=== PATIENT | male | born 1945 | race Hispanic/Latino ===

== ENCOUNTER 2016-08-15 08:03 | Inpatient (IN) | payer MEDICARE, OTHER ==
[2016-08-15 08:04] VITALS: BMI 21.9
--- NOTE | 2016-08-15 08:21 | ED PDOC ---
Arrival/HPI - General Time Seen by Provider: 08/15/16 08:13 Historian: Patient - History of Present Illness Narrative History of Present Illness (Text): 08/15/16 08:19 Corona Sheffield is a 71 year old male, whose past medical history includes hypertension, diabetes, osteomyelitis, renal failure, left BKA, and depression, who presents to the emergency room complaining of pain to his right elbow and hand since last night. Patient states that the pain makes it difficult to move his fingers. Patient indicates that he wears golf gloves so that he is able to hold things. Patient says he lives alone but his daughter lives downstairs. Patient denies any other complaint at this time. PMD: Dr. Patiño Time/Duration: 24 hours Symptom Onset: Sudden Symptom Course: Worsening Severity Level: Moderate Activities at Onset: Rest Context: Home Associated Symptoms (Text): 08/15/16 08:49 Patient reports right hand and elbow pain since last night. He has golf gloves on both hands, which he reports makes it easier for him to hold things. After I removed the golf gloves it was apparent that the patient had a severe cellulitis on his right dorsal hand with proximal streaking Past Medical History - Provider Review Nursing Documentation Reviewed: Yes - Infectious Disease Hx of Infectious Diseases: None - Cardiac Hx Cardiac Disorders: Yes Hx Hypertension: Yes - Pulmonary Hx Respiratory Disorders: No - Neurological Hx Neurological Disorder: No Hx Transient Ischemic Attacks (TIA): No - HEENT Hx HEENT Disorder: No - Renal Hx Renal Failure: Yes - Endocrine/Metabolic Hx Diabetes Mellitus Type 2: Yes - Hematological/Oncological Hx Blood Disorders: No - Integumentary Hx Dermatological Disorder: Yes (POST I AND D AND DEBRIDEMENT OF LEFT FOOT.) Other/Comment: amputation left great/2nd toe - Musculoskeletal/Rheumatological Hx Falls: Yes - Gastrointestinal Hx Gastrointestinal Disorders: No - Genitourinary/Gynecological Hx Reproductive Disorders: No - Psychiatric Hx Psychophysiologic Disorder: Yes Hx Depression: Yes ( 2 YRS AGO 2013) Hx Substance Use: No - Surgical History Other/Comment: amputation left 1/2/ toes bka 03/17/2016 - Anesthesia Hx Anesthesia: Yes Hx Anesthesia Reactions: Yes Hx Malignant Hyperthermia: No Family/Social History - Physician Review Nursing Documentation Reviewed: Yes Family/Social History: No Known Family HX Smoking Status: Former Smoker Hx Alcohol Use: Yes Frequency of alcohol use: Socially Hx Substance Use: No Allergies/Home Meds Allergies/Adverse Reactions: Allergies No Known Allergies Allergy (Verified 06/17/16 20:55) Review of Systems - Physician Review All systems were reviewed & negative as marked: Yes - Review of Systems Constitutional: Fatigue. absent: Fevers, Night Sweats Eyes: absent: Vision Changes ENT: absent: Hearing Changes Respiratory: absent: SOB, Cough Cardiovascular: absent: Chest Pain Gastrointestinal: absent: Abdominal Pain, Vomiting Genitourinary Male: absent: Urinary Output Changes Musculoskeletal: Other (Pain to right elbow and fingers) Neurological: absent: Headache Endocrine: absent: Polydipsia Hemo/Lymphatic: absent: Easy Bleeding Psychiatric: absent: Depression Physical Exam Vital Signs Reviewed: Yes Vital Signs Temp Pulse Resp BP Pulse Ox 08/15/16 10:10 93 H 17 134/65 100 08/15/16 09:55 89 17 118/68 99 08/15/16 09:47 89 17 118/68 100 08/15/16 09:39 89 18 140/70 98 08/15/16 09:15 87 19 135/77 100 08/15/16 09:00 92 H 17 137/77 100 08/15/16 08:12 97.8 F 104 H 20 155/89 H 100 Temperature: Afebrile Blood Pressure: Hypertensive Pulse: Regular Respiratory Rate: Normal Appearance: Positive for: Well-Appearing, Non-Toxic, Comfortable, Other (Pale) Pain Distress: None Mental Status: Positive for: Alert and Oriented X 3 - Systems Exam Head: Present: Atraumatic, Normocephalic Pupils: Present: PERRL Extroacular Muscles: Present: EOMI Conjunctiva: Present: Normal Mouth: Present: Moist Mucous Membranes Pharnyx: No: ERYTHEMA, EXUDATE, TONSILS ENLARGED Neck: Present: Normal Range of Motion Respiratory/Chest: Present: Clear to Auscultation, Good Air Exchange, Decreased Breath Sounds. No: Respiratory Distress, Accessory Muscle Use Cardiovascular: Present: Regular Rate and Rhythm, Normal S1, S2. No: Murmurs Abdomen: Present: Normal Bowel Sounds. No: Tenderness, Distention, Peritoneal Signs, Rebound, Guarding Genitourinary Male: Present: Other (fungal scrotal skin infection) Back: Present: Normal Inspection Upper Extremity: Present: Other (severe cellulitis on right dorsal hand with streaking to proximal 3rd of forearm) Lower Extremity: Present: Other ( well healing AKA incision ) Neurological: Present: GCS=15, CN II-XII Intact, Speech Normal, Motor Func Grossly Intact Skin: Present: Warm, Dry, Normal Color. No: Rashes Psychiatric: Present: Alert, Oriented x 3, Normal Insight, Normal Concentration Medical Decision Making ED Course and Treatment: 08/15/16 08:20 Impression: 71 year old male complaining of pain to right elbow and hand since last night Plan: -- EKG -- Chest X-ray -- VBG, Blood Culture -- Urinalysis -- Labs -- Rocephin -- Reassess and disposition Prior Visits: Notes and results from previous visits were reviewed. Patient last seen in the ED on 06/14/16 for abdominal pain. Patient was admitted to hospital for further evaluation. Progress Notes: 08/15/16 08:51 EKG shows normal sinus rhythm rate approximately [address] or T-wave changes 08/15/16 10:26 Chest X-ray: Creator : DR. Mcfarlane, Azalia Hamilton MD FINDINGS: LUNGS:No focal consolidation. Please note that chest x-ray has limited sensitivity for the detection of pulmonary masses. PLEURA:No significant pleural effusion identified. No definite pneumothorax . CARDIOVASCULAR:The cardiomediastinal silhouette appears within normal limits of size. OSSEOUS STRUCTURES: Chronic appearing posterior left 6th rib fracture deformity. VISUALIZED UPPER ABDOMEN:Unremarkable. IMPRESSION: No focal consolidation, significant pleural effusion, or definite pneumothorax identified. - Lab Interpretations Lab Results: 08/15/16 09:09 08/15/16 09:09 Lab Results 08/15/16 09:27: Urine Color Yellow, Urine Appearance Clear, Urine pH 6.0, Ur Specific [place] >= 1.030, Urine Protein 100 H, Urine Glucose (UA) Negative, Urine Ketones Negative, Urine Blood Small H, Urine Nitrate Negative, Urine Bilirubin Negative, Urine Urobilinogen 0.2, Ur Leukocyte Esterase Negative, Urine RBC 0 - 2, Urine WBC 0 - 2, Ur Epithelial Cells 0 - 2, Urine Bacteria Rare 08/15/16 09:09: WBC 9.1 D, RBC 4.07, Hgb 12.0 L, Hct 34.7 L, MCV 85.3, MCH 29.5 , MCHC 34.6, RDW 14.3, Plt Count 217, MPV 10.9, Gran % 74.6 H, Lymph % (Auto) 10.9 L, [place] % (Auto) 14.2 H, Eos % (Auto) 0.2 L, Baso % (Auto) 0.1, Gran # 6.80 H, Lymph # 1.0 L, [place] # 1.3 H, Eos # 0.0, Baso # 0.01, PT 10.8, INR 1.00, APTT 31.4 H, pO2 30, VBG pH 7.36, VBG pCO2 38.0 L, VBG HCO3 21.5, VBG Total CO2 22.7, VBG O2 Sat (Calc) 58.5, VBG Base Excess -3.6 L, VBG Potassium 4.3, Glucose 188 H, Lactate 1.7, FiO2 21.0, Sodium 134.0, Potassium 4.5, Chloride 108.0 H, Carbon Dioxide 22, Anion Gap 14, BUN 33 H, Creatinine 2.1 H, Est GFR ( Amer) 38, Est GFR (Non-Af Amer) 31, Random Glucose 184 H, Calcium 9.0, Phosphorus 3.2, Magnesium 1.8, Total Bilirubin 1.6 H, AST 24, ALT 7, Alkaline Phosphatase 96, Total Protein 7.6, Albumin 3.6, Globulin 4.0, Albumin/Globulin Ratio 0.9 L, Venous Blood Potassium 4.3 I have reviewed the lab results: Yes - RAD Interpretation Radiology Orders: 08/15/16 08:26 CHEST PORTABLE [RAD] Stat Chest 1 view shows no infiltrate or effusion or cardiomegaly. Creative Services Writer: ED Physician - Medication Orders Current Medication Orders: Discontinued Medications Ceftriaxone Sodium (Rocephin 1 Gram Ivpb) 100 mls @ 200 mls/hr IVPB STAT STA PRN Reason: Protocol Stop: 08/15/16 08:54 Last Admin: 08/15/16 09:16 Dose: 200 MLS/HR eMAR Start Stop Document 08/15/16 09:16 SF (Rec: 08/15/16 09:17 SF [id number]) Intravenous Solution Start Date 08/15/16 Start Time 09:17 End Date 08/15/16 End time 09:47 Total Infusion Time 30 - Scribe Statement The provider has reviewed the documentation as recorded by the Sharon Benedict Provider Scribe Attestation: All medical record entries made by the Scribe were at my direction and personally dictated by me. I have reviewed the chart and agree that the record accurately reflects my personal performance of the history, physical exam, medical decision making, and the department course for this patient. I have also personally directed, reviewed, and agree with the discharge instructions and disposition. Disposition/Present on Arrival - Present on Arrival Any Indicators Present on Arrival: No History of DVT/PE: No History of Uncontrolled Diabetes: No Urinary Catheter: No History of Decub. Ulcer: No History Surgical Site Infection Following: None - Disposition Have Diagnosis and Disposition been Completed?: Yes Diagnosis: Cellulitis, Lymphangitis, Renal failure, Dehydration Disposition: HOSPITALIZED Disposition Time: 09:31 Patient Plan: Observation Patient Problems: Current Active Problems Problem Status Diagnosed Cellulitis Acute Dehydration Acute Gastritis Acute Intractable vomiting with nausea Acute Lymphangitis Acute Renal failure Acute Condition: GOOD
[2016-08-15] MEDS ORDERED: cefTRIAXone 1 gm 100 ML IVPB STA (08:25)
[2016-08-15 09:09] LABS: ADD MANUAL DIFF? NO
[2016-08-15 09:16] LABS: BASO # 0.01 K/mm3 (0.0-2.0); BASO % 0.1 % (0.0-3.0); EOS % 0.2 % (1.5-5.0); GRAN % 74.6 % (50.0-68.0); HEMATOCRIT 34.7 % (42.0-52.0); LYMPH % 10.9 % (22.0-35.0); MEAN CELL VOLUME 85.3 fL (80.0-105.0); MEAN CORPUSCULAR HEMOGLOBIN 29.5 pg (25.0-35.0); MEAN CORPUSCULAR HGB CONC 34.6 g/dl (31.0-37.0); MEAN PLATELET VOLUME 10.9 fl (7.0-11.0); MONO # 1.3 (0.1-0.6); MONO % 14.2 % (1.0-6.0); PLATELET COUNT 217 10^3/uL (120.0-450.0); RED CELL DISTRIBUTION WIDTH 14.3 % (11.5-14.5); VENOUS BLOOD GAS BASE EXCESS -3.6 mmol/L (0.0-2.0); VENOUS BLOOD PH 7.36 (7.32-7.43); WHITE BLOOD COUNT 9.1 10^3/ul (4.5-11.0)
[2016-08-15 09:27] LABS: ALB/GLOB RATIO 0.9 (1.1-1.8); BILIRUBIN,TOTAL 1.6 mg/dL (0.2-1.3); MAGNESIUM 1.8 mg/dL (1.7-2.2); PARTIAL THROMBOPLASTIN TIME 31.4 Seconds (23.7-30.8); PHOSPHOROUS 3.2 mg/dL (2.5-4.5); POTASSIUM 4.5 mmol/L (3.6-5.0); TOTAL PROTEIN 7.6 g/dL (5.8-8.3)
[2016-08-15 09:42] LABS: URINE BILIRUBIN NEGATIVE (NEGATIVE); URINE BLOOD SMALL (NEGATIVE); URINE GLUCOSE (UA) NEGATIVE (NEGATIVE); URINE KETONE NEGATIVE (NEGATIVE); URINE LEUKOCYTE ESTERASE NEGATIVE Leu/uL (NEGATIVE); URINE PROTEIN 100 mg/dL (<30 mg/dL); URINE UROBILINOGEN 0.2 E.U./dL (<1 E.U./dL)
[2016-08-15 09:47] LABS: URINE COLOR YELLOW (YELLOW)
[2016-08-15 09:48] LABS: URINE APPEARANCE CLEAR (CLEAR)
[2016-08-15 09:58] LABS: URINE BACTERIA RARE (NEG); URINE EPITHELIAL CELLS 0 - 2 /hpf (0-5); URINE RBC 0 - 2 /hpf (0-2); URINE WBC 0 - 2 /hpf (0-6)
--- NOTE | 2016-08-15 10:23 | RAD ---
HISTORY: Sepsis Patient COMPARISON: Chest x-ray performed 06/14/16 TECHNIQUE: Chest, one view. FINDINGS: LUNGS: No focal consolidation. Please note that chest x-ray has limited sensitivity for the detection of pulmonary masses. PLEURA: No significant pleural effusion identified. No definite pneumothorax . CARDIOVASCULAR: The cardiomediastinal silhouette appears within normal limits of size. OSSEOUS STRUCTURES: Chronic appearing posterior left 6th rib fracture deformity. VISUALIZED UPPER ABDOMEN: Unremarkable. OTHER FINDINGS: None. IMPRESSION: No focal consolidation, significant pleural effusion, or definite pneumothorax identified.
--- NOTE | 2016-08-15 12:16 | HP ---
HISTORY OF PRESENT ILLNESS: The patient is a 71-year-old male, recently discharged secondary to infe ctions of the foot, for which he had a BKA done. He comes in today with a 1-day history of severe sw elling of the right hand, with erythema. States that he denies any trauma. He denies any cats at [facility], as well as dogs. He said the swelling got to the point where he is unable to move his hand prope rly, and came in for further evaluation. PAST MEDICAL HISTORY: Hypertension, diabetes mellitus, osteomyelitis, status post left BKA. ALLERGIES: No known allergies. PAST SURGICAL HISTORY: Left BKA. MEDICATIONS: See MAR. FAMILY MEDICAL HISTORY: Positive for hypertension and diabetes. REVIEW OF SYSTEMS: HEENT: Unremarkable. CARDIOVASCULAR: Unremarkable. LUNGS: Unremarkable. ABDOMEN: Unremarkable. EXTREMITIES: Positive for new swelling and redness of the hand, as per HPI, as well as some redness to the . PHYSICAL EXAMINATION: VITAL SIGNS: Blood pressure is 134/65, pulse rate of 93, temperature is 98.7, O2 saturation is 100% on room air. HEENT: Normocephalic, atraumatic. Rippey conjunctivae, nonicteric sclerae. NECK: No JVD, no thyromegaly. CARDIOVASCULAR: Regular rate and rhythm. S1, S2 appreciated. No S3 noted. LUNGS: Bilateral air entry is positive. No wheezes or rhonchi. ABDOMEN: Nondistended, nontender. Positive bowel sounds. EXTREMITIES: Positive for left BKA. There is right toe erythema that is noted, as well as right contreras d erythema and decreased range of motion. LABORATORY DATA: WBCs of 9.1, hemoglobin of 12.0, hematocrit of 34.7, platelets of 217. Chemistry w ithin normal limits, except for creatinine of 2.1, which is around his baseline. LFTs also within no rmal limits. Chest x-ray was noted. ASSESSMENT: 1. Right hand cellulitis. 2. Hypertension. 3. Diabetes mellitus. 4. Status post vapwy-sgu-ypru amputation secondary to osteomyelitis. PLAN: At this time, we will get a consult with Dr. Lopez, from ID, and Dr. Henriquez, from Ortho . We reconciled his medications. The patient did receive a dose of Rocephin, but we will start him on Teflaro IV and will follow very closely. Morales Mckeon MD cc: [id number] TT: 08/15/2016 12:16:08 ln
--- NOTE | 2016-08-15 12:50 | CON ---
DATE: 08/15/2016 The patient is in the Emergency Room. CHIEF COMPLAINT: Right hand infection x 1 day duration. HISTORY OF PRESENT ILLNESS: A 71-year-old male known to me from previous admissions, had multiple ad missions with history of diabetes mellitus, hypertension, alcohol abuse, peripheral vascular disease, depression, coronary artery disease, osteomyelitis, history of Klebsiella bacteremia, history of MRS A bacteremia, history of renal disease, high cholesterol, who also had a left lkpya-luk-fdzz amputati on. He was admitted with right hand infection x 1 day duration. He denies any nausea, vomiting. No fevers, no chills, no chest pain, abdominal pain, diarrhea or constipation. No bright red blood per rectum. PAST MEDICAL HISTORY: Significant for Klebsiella bacteremia, MRSA bacteremia, renal disease, high ch olesterol, diabetes mellitus, hypertension, ETOH, peripheral vascular disease, depression, coronary a rtery disease and osteomyelitis. PAST SURGICAL HISTORY: Significant for left below-knee amputation. ALLERGIES: The patient has no known allergies. MEDICATIONS AT HOME: Reviewed and include tramadol, clonidine and Protonix, insulin, Lexapro, Lipito r. PHYSICAL EXAMINATION: GENERAL: The patient is in bed, no acute distress. VITAL SIGNS: Temperature of 98, blood pressure is 150/90, heart rate of 94, respiratory rate of 18. HEENT: Unremarkable. NECK: Supple. LUNGS: Have decreased breath sounds. HEART: Normal S1, S2. ABDOMEN: Soft, nontender. EXTREMITIES: Examination of right hand is significant erythema and edema. No break in the skin, no discharge. Radial pulses are intact. On the dorsum aspect of the hand, erythema is present. LABORATORY EXAMINATION: Reveals a white count of 9, hemoglobin of 12, platelets 217 and BUN of 33, c reatinine of 2.1, glucose is 184. Urinalysis is noted. The patient had a chest x-ray. It was read by Dr. Azalia Mcfarlane. There is no focal consolidation. Emergency Room Dr. Evan Davis's E mergency Room note is reviewed. No other information is available. ASSESSMENT AND PLAN: A 71-year-old male with diabetes mellitus, hypertension, alcohol abuse, periphe ral vascular disease, depression, coronary artery disease and osteomyelitis, Klebsiella bacteremia, m ethicillin-resistant Staphylococcus aureus bacteremia, renal disease, high cholesterol, left below-kn ee amputation. 1. Right hand cellulitis. We will treat the patient with Teflaro pending graves cultures and clinical response and we will follow closely with you. Magdaleno Lopez MD cc: [id number] TT: 08/15/2016 12:49:45 Confirmation # [id number] Dictation # [id number] tn
[2016-08-15] MEDS: Insulin Lispro (humaLOG) LOW Coverage SC SCH ×2 (16:19→21:16)
[2016-08-15] MEDS ORDERED: Pneumococcal 23-Valent Vaccine IM ONE (17:55)
[2016-08-15] MEDS ORDERED: Influenza Vaccine 45 MCG/0.5 ml IM ONE (17:55)
[2016-08-16] MEDS: Insulin Lispro (humaLOG) LOW Coverage SC SCH (08:59)
--- NOTE | 2016-08-16 09:34 | CARD ---
APPROVED REPORT EKG Measurement Heart [id number] <Conclusion> Normal sinus rhythm Mild NSSTW changes. Prolonged QTc.
--- NOTE | 2016-08-16 13:13 | PN ---
DATE: 08/16/2016 The patient is a 71-year-old male, seen and examined at bedside. Daughter was also at the bedside. Currently, he is tolerating the IV antibiotics that the patient is receiving. He has been refusing h is Accu-Cheks as well as insulin, denies that he has diabetes. He also has been refusing his psychia tric medications. However, currently he is not having chest pain, no shortness of breath. PHYSICAL EXAMINATION: VITAL SIGNS: Blood pressure currently is 138/82, pulse rate of 69, temperature is 97.3, O2 saturatio n is 100% on room air. HEENT: Normocephalic, atraumatic. [place] conjunctivae, nonicteric sclerae. NECK: No JVD, no thyromegaly. CARDIOVASCULAR: Regular rate and rhythm. S1, S2 appreciated. No S3 noted. LUNGS: Bilateral air entry is positive. No wheezes or rhonchi. ABDOMEN: Nondistended, nontender. Positive bowel sounds. EXTREMITIES: Positive for BKA. There is also noted right toe erythema as well as right hand erythem a, which is decreasing in size. There is still decreased range of motion. LABORATORIES: The patient refuses labs this morning, but we will reorder labs again today. ASSESSMENT: 1. Right hand cellulitis. 2. Right foot cellulitis. 3. Hypertension. 4. Diabetes mellitus. 5. Axthy-bjs-iqas amputation, secondary to osteomyelitis. Did note Dr. Lopez's evaluation and change in IV antibiotics. I also put in Dr. Whitley for a p odiatry consult as well as Dr. Henriquez to review and evaluate hand. Morales Mckeon MD cc: [id number] TT: 08/16/2016 13:12:31 Confirmation # [id number] Dictation # [id number] en
--- NOTE | 2016-08-16 13:26 | PN ---
DATE: 08/16/2016 The patient was seen earlier today. No fevers, no chills, no nausea, no vomiting, doing better. He states his hand is improved. PHYSICAL EXAMINATION: VITAL SIGNS: Temperature is 97, blood pressure is 130/80, respiratory rate of 18. HEENT: Unremarkable. NECK: Supple. LUNGS: Have decreased breath sounds. HEART: Normal S1, S2. ABDOMEN: Soft, nontender. LABORATORY DATA: Reveals the patient's white count is 9, hemoglobin of 12, platelets of 217. Chemis tries reveal the BUN of 33, creatinine of 2.1. Urinalysis is noted. Microbiology reveals the blood cultures are negative. Examination of his hand, it is still erythematous, but it is improved. ASSESSMENT AND PLAN: This is a 71-year-old male with diabetes mellitus, hypertension, alcohol abuse, peripheral vascular disease, depression, coronary artery disease, osteomyelitis, Klebsiella bacterem ia, methicillin-resistant Staphylococcus aureus bacteremia, renal disease, high cholesterol, left bel ow-knee amputation, now presenting with right hand cellulitis. On exam, patient also has a right seco nd toe ulcer and erythema. Podiatry is to be called today. The patient is already on Teflaro. Work up of lower extremity as per podiatry. Magdaleno Lopez MD cc: [phone] TT: 08/16/2016 13:25:43 Confirmation # [id number] Dictation # [id number] niecy
[2016-08-16 15:44] LABS: ADD MANUAL DIFF? NO
[2016-08-16 15:45] LABS: BASO # 0.02 K/mm3 (0.0-2.0); BASO % 0.2 % (0.0-3.0); EOS # 0.1 (0.0-0.7); EOS % 1.2 % (1.5-5.0); GRAN # 7.79 (1.4-6.5); GRAN % 81.7 % (50.0-68.0); HEMATOCRIT 32.6 % (42.0-52.0); LYMPH # 0.4 (1.2-3.4); LYMPH % 4.2 % (22.0-35.0); MEAN CORPUSCULAR HEMOGLOBIN 29.1 pg (25.0-35.0); MEAN CORPUSCULAR HGB CONC 34.7 g/dl (31.0-37.0); MEAN PLATELET VOLUME 10.6 fl (7.0-11.0); MONO # 1.2 (0.1-0.6); MONO % 12.7 % (1.0-6.0); PLATELET COUNT 214 10^3/uL (120.0-450.0); RED CELL DISTRIBUTION WIDTH 14.4 % (11.5-14.5); WHITE BLOOD COUNT 9.5 10^3/ul (4.5-11.0)
[2016-08-16 16:05] LABS: ALB/GLOB RATIO 0.8 (1.1-1.8); BILIRUBIN,TOTAL 0.5 mg/dL (0.2-1.3); CALCIUM 8.2 mg/dL (8.4-10.5); POTASSIUM 3.9 mmol/L (3.6-5.0); TOTAL PROTEIN 6.7 g/dL (5.8-8.3)
[2016-08-16] MEDS ORDERED: Vancomycin 1gm in NS 250ml 250 ML IVPB ONE (18:00)
[2016-08-17] MEDS ORDERED: Morphine 2 mg/ml ISec IVP PRN (07:58)
[2016-08-17] MEDS ORDERED: Sodium Chloride 0.45% 1,000 ML IV SCH (08:00)
--- NOTE | 2016-08-17 09:40 | PN ---
DATE: 08/17/2016 I saw the patient resting in bed this morning. His right hand is still red and inflamed, so is the r ight foot. Waiting for podiatry to come in and see him. He is being seen by infectious disease. He is alert. He has a little bit of discomfort in the right hand more than the foot at this time, but it is still red and inflamed. PHYSICAL EXAMINATION: VITAL SIGNS: He has a 97.3 temp, 71 pulse, 163/90 blood pressure. He refuses his medications. An 1 8 respiratory rate, 98% O2 sat on room air. MEDICATIONS: He is currently on Abilify, Catapres, ceftaroline IV, Ecotrin, Lexapro, Lipitor, Motrin , and Ultram for pain. LABORATORY DATA: He has a 9.5 white count, 11.3 hemoglobin, 32.6 hematocrit with 214 platelets. He has a 131 sodium, potassium 3.9, BUN is 47, creatinine 3.3 (I will get renal involved because his ki dney functions are getting a little bit worse). Last sugar was 227 (I am going to tighten up his blaire betes). Calcium is 8.2. Total bili is 0.5, AST is 16, ALT is 9, alkaline phosphatase is 87, total p rotein 6.7. His urine was rare. He is here for cellulitis of the right hand and right foot, now his kidney function is getting involv ed and so are his blood sugars. I will see what I can do for insulin coverage and care. He needs IV antibiotics as per infectious disease. He has a left below-knee amputation history. See what podia try has to offer. Continue IV antibiotics. Kavon Patiño DO cc: [id number] TT: 08/17/2016 09:39:26 Confirmation # [id number] Dictation # [id number] mn
--- NOTE | 2016-08-17 11:29 | CON ---
DATE: 08/17/2016 REASON FOR CONSULTATION: Right hand pain. This is a 71-year-old gentleman who was admitted 2 days ago with complaints of right hand pain and sw elling. The patient was subsequently admitted for cellulitis and was started on IV antibiotics. The patient says since then, the redness has improved significantly. He still has pain, particularly on range of motion of his second and third fingers. He denies any history of trauma. He denies histor y of any fevers at home. PHYSICAL EXAMINATION: GENERAL: This is an elderly gentleman, in no apparent distress. He is awake, alert, and oriented. EXTREMITIES: Evaluation of his right hand shows that he has some swelling and erythema over the dors um of his hand, appears to be mostly concentrated over the second and third metacarpals. He has pain with passive or active range of motion at the MCP joints of the second and third fingers. He has go od cap refill in all his fingers. He is nontender over the first, the fourth and fifth fingers and i s able to flex them without significant pain. There is no obvious swelling or deformity about the ri ght wrist. He is tolerating active range of motion of the wrist without significant pain. Grossly, he is neurologically intact. There are no x-rays available for my review. IMPRESSION: Right hand cellulitis. PLAN: We are going to go ahead and order x-rays of the right hand for better evaluation. For now, christian lozano is going to continue the IV antibiotics. We will follow up once the x-rays are complete. Frankie Henriquez MD cc: [id number] TT: 08/17/2016 11:29:41 Confirmation # [id number] Dictation # [id number] en
--- NOTE | 2016-08-17 13:17 | CP.PCM.PN ---
Subjective - Date & Time of Evaluation Date of Evaluation: 08/17/16 Time of Evaluation: 11:05 - Subjective Subjective: Patient just came from x-ray, overnight was uneventful. No fevers, no diarrhea, still with hand swelling but a little less. Objective - Vital Signs/Intake and Output Vital Signs (last 24 hours): Temp Pulse Resp BP Pulse Ox 97.3 F L 70 18 163/90 H 98 08/17/16 07:23 08/17/16 10:03 08/17/16 07:23 08/17/16 10:03 08/17/16 07:23 Intake and Output: 08/17/16 08/17/16 06:59 18:59 Intake Total 340 Output Total 450 Balance -110 - Medications Medications: Current Medications Aripiprazole (Abilify) 5 mg PO HS [facility] Last Admin: 08/16/16 21:33 Dose: Not Given Aspirin (Ecotrin) 81 mg PO 0800 [facility] Last Admin: 08/17/16 10:04 Dose: Not Given Atorvastatin Calcium (Lipitor) 40 mg PO DIN [facility] Last Admin: 08/16/16 17:53 Dose: Not Given Clonidine HCl (Catapres) 0.1 mg PO BID [facility] Last Admin: 08/17/16 10:03 Dose: Not Given Escitalopram Oxalate (Lexapro) 5 mg PO QAM [facility] Last Admin: 08/17/16 10:05 Dose: Not Given Heparin Sodium (Porcine) (Heparin) 5,000 units SC Q12 [facility] PRN Reason: Protocol Last Admin: 08/17/16 10:04 Dose: Not Given Ceftaroline Fosamil 400 mg/ (Sodium Chloride) 100 mls @ 100 mls/hr IVPB Q12 [facility] PRN Reason: Protocol Stop: 08/24/16 12:18 Last Admin: 08/17/16 09:52 Dose: 100 mls/hr Sodium Chloride (Sodium Chloride 0.45%) 1,000 mls @ 30 mls/hr IV .Q24H [facility] Last Admin: 08/17/16 10:02 Dose: 30 mls/hr Insulin Detemir (Levemir) 12 unit SC HS [facility] Morphine Sulfate (Morphine) 2 mg IVP Q4H PRN PRN Reason: Pain, moderate (4-7) Pantoprazole Sodium (Protonix Ec Tab) 40 mg PO ACB [facility] - Labs Labs: 08/16/16 15:30 08/16/16 15:30 PT 10.8 Seconds (9.9-11.8) 08/15/16 09:09 INR 1.00 (0.93-1.08) 08/15/16 09:09 APTT 31.4 Seconds (23.7-30.8) H 08/15/16 09:09 - Constitutional Appears: Non-toxic, No Acute Distress - Head Exam Head Exam: NORMAL INSPECTION - ENT Exam ENT Exam: Mucous Membranes Moist - Neck Exam Neck Exam: absent: Lymphadenopathy, Meningismus - Respiratory Exam Respiratory Exam: Decreased Breath Sounds - Cardiovascular Exam Cardiovascular Exam: +S1, +S2 - GI/Abdominal Exam GI & Abdominal Exam: Soft. absent: Tenderness - Extremities Exam Additional comments: right hand with swelling and erythema Assessment and Plan - Assessment and Plan (Free Text) Plan: Assessment right hand cellulitis with associated Staph aureus bacteremia, slowly improving history of left sided healthcare-associated pneumonia history of left stump infection with clinical osteomyelitis S/P left BKA with associated MRSA bacteremia history of left foot infection S/P transmetatarsal amputation (12/25/2015) with viable margins in a patient with a history of left foot gangrene and abscess S/ P incision and drainage of an abscess and first ray resection with osteomyelitis with Klebsiella; this is also associated with Klebsiella bacteremia diabetes mellitus alcohol abuse chronic renal failure Plan Continue Teflaro (day 2) and given one dose of IV Vancomycin; blood cultures were repeated yesterday, will follow up sensitivities of the Staph aureus in the blood; ordered 2D echo and will follow up results; will also follow up results of the hand xray done today Reviewed Orthopedic consult Will monitor clinically
--- NOTE | 2016-08-17 15:31 | RAD ---
PROCEDURE: Right Hand Radiographs. HISTORY: pain and swelling COMPARISON: None. FINDINGS: BONES: Normal. No fracture. JOINTS: Normal. No osteoarthritic changes. SOFT TISSUES: Normal. OTHER FINDINGS: None. IMPRESSION: Normal right hand radiographs.
--- NOTE | 2016-08-17 18:01 | CON ---
DATE: 08/17/2016 This is a 71-year-old male seen for new consultation for an infected third toe on his left foot. Alda hernandez is a patient known to me in the past. He has had a left BKA. He is home. He states that he walks with a prosthetic and he is caring for himself at home. He states that the toe is not what brought him to the hospital, but his hand which is swelling and he cannot move his hand. PAST MEDICAL HISTORY: Positive for the osteomyelitis to the left foot with a BK. He has a history o f hypertension and diabetes. MEDICATIONS: Noted on the JUL. ALLERGIES: He has no known drug allergies. PAST SURGICAL HISTORY: Positive for the left BKA and for surgical removal of the first and second to es on the right foot. OBJECTIVE: VITAL SIGNS: Reviewed. His temperature is 97.8, his blood pressure is 170/94. His respirations are 18 and the oxygen is 99. LABORATORY DATA: Show a white blood cell count of 9.5. The H and H is 11.3/32.6, and the platelets are 214. Granulocytes are 81.7 and lymphocytes of 4.2 with a shift to the left. Chemistry shows a B UN and creatinine of 47 and 3.3, and his glucose was 227. The patient is denying being a diabetic an d the nurse states he has been refusing to have fingersticks done. Microbiology shows that he has a blood infection with Staph aureus. PHYSICAL EXAMINATION: He has lower extremity on the right shows nonpalpable pedal pulses. He has ri gid hammertoe deformity. The third toe is cellulitic. There is an ulceration at the PIPJ with pus c oming from it. There is slough and necrosis over that wound, and the joint is easily palpable throug h the softened slough tissue. ASSESSMENT: A diabetic with peripheral vascular disease and osteomyelitis to the third toe on his le ft foot. PLAN OF TREATMENT: A wound culture was taken. X-rays were ordered. Arterial Dopplers were ordered. Wound care was ordered hemoglobin A1c was also ordered as well as an ESR and a CRP. Nursing wound care dressings were applied. At the time, we are just going to clean it with some saline and a dry s terile dressing. Plan of treatment also will include patient will need amputation of that toe. At t his time, will await the test and he will be seen and followed. Larissa Whitley DPM cc: [id number] TT: 08/17/2016 18:00:43 Confirmation # [id number] Dictation # [id number] mn
[2016-08-17] MEDS: Insulin Detemir 100 units/ml Vial (Levemir) SC SCH (23:27)
[2016-08-18] MEDS: Pantoprazole 40 mg EC Tab PO SCH (08:03)
[2016-08-18 09:45] LABS: ALB/GLOB RATIO 0.9 (1.1-1.8); ALKALINE PHOSPHATASE 98 U/L (38-133); ALT/SGPT 12 U/L (7-56); AST/SGOT 23 U/L (15-59); BILIRUBIN,TOTAL 0.5 mg/dL (0.2-1.3); BLOOD UREA NITROGEN 45 mg/dL (7-21); CALCIUM 8.7 mg/dL (8.4-10.5); CARBON DIOXIDE 15 mmol/L (21-33); CHLORIDE 108 mmol/L (95-110); GFR AFRICAN-AMERICAN 20; GLUCOSE,RANDOM 220 mg/dL (70-110); POTASSIUM 4.1 mmol/L (3.6-5.0); SODIUM 140 mmol/L (132-148); TOTAL PROTEIN 6.9 g/dL (5.8-8.3); URIC ACID 7.9 mg/dL (3.5-8.5)
[2016-08-18] MEDS ORDERED: Sodium Chloride 0.45% 1,000 ML IV SCH (10:18)
--- NOTE | 2016-08-18 11:14 | PN ---
DATE: 08/18/2016 I saw the patient resting in bed. He is fairly comfortable, a little bit upset about being in the hospital, is on his IV fluids. He is still refusing medications. He is on IV antibiotics. He is being seen by podiatry, orthopedics and infectious disease. The x-rays of the hand were okay. MEDICATIONS: He is currently on Abilify, Catapres, ceftaroline, Ecotrin, heparin, Levemir, Lexapro, Lipitor, morphine, Protonix and IV fluids. PHYSICAL EXAMINATION: VITAL SIGNS: 97.8 temp, 69 pulse, 170/94 blood pressure, refusing his bp meds, 18 respiratory rate, . HEENT: Atraumatic, normocephalic. His throat is moist. NECK: Supple. HEART: Regular rate. LUNGS: Decreased breath sounds, but clear. ABDOMEN: Soft, nontender, positive bowel sounds. EXTREMITIES: He has a left BKA. Right foot is red and right hand red, but getting better. His cellulitis on the right side is improving. LABORATORY DATA: He has a 9.5 white count. He has 11.3 hemoglobin, 32.6 hematocrit with 214 platelets; 131 sodium, potassium 3.9, BUN is 47, creatinine 3.3, going up, I will call in renal. Sugar is 117, calcium is 8.2, total bili is 0.58, AST is 16, ALT is 9, alk phos is 87. He has consults with infectious disease, ortho, podiatry and a renal consult was called yesterday. He will continue with the IV fluids. See what the labs say today, they are pending. I am also going to call in social work to see if we can get him to TCU to finish up the antibiotics if it is okay with infectious disease. Will try and get him out of bed to chair and encourage him to please take his medications. He is here for cellulitis of the right hand, right foot, renal insufficiency and diabetes. Kavon Patiño DO cc: [id number] TT: 08/18/2016 10:50:42 Confirmation # [id number] Dictation # [id number] joel 08/18/2016 10:12:59 MTDD
--- NOTE | 2016-08-18 13:17 | US ---
PROCEDURE: Urinary bladder HISTORY: ARF COMPARISON: None TECHNIQUE: Standard protocol for this study/examination. FINDINGS: Urinary bladder assessment: Prevoid volume: 204.2 ml Postvoid residual: 16.9 ml Intrinsic, mural, perivesical abnormalities: Bladder calculus 1 x 0.3 cm. Ureteral jets: Documented bilaterally. Transabdominal prostate volume 12.7 mL. IMPRESSION: Solitary bladder calculus. Otherwise no acute/ significant findings.
--- NOTE | 2016-08-18 13:44 | CON ---
DATE: 08/17/2016 CONSULTATION REQUESTED BY: Julio C Acosta MD. REASON FOR CONSULTATION: Acute renal failure, hyponatremia, metabolic acidosis, stage III chronic ki dney disease. HISTORY OF PRESENT ILLNESS: The patient is a 71-year-old gentleman. He presented to [facility]'s Emergency Department on 08/15 with a complaint of pain in his right elbow and hand, arising from the night before that made it difficult to move his fingers. On arrival to the Emergency Department, he was noted to have a blood pressure of 155/89 with a heart rate of 104, breathing at 16 breaths per minute with an oxygen saturation 100%. Oral temperature is 97.8 degrees. Physical exam did reveal that his right hand was, in fact, quite erythematous. LABORATORY STUDIES: Had a normal white blood cell count, but his hemoglobin was 12, which is rather high for this patient with chronic anemia and a baseline hemoglobin of approximately 10. White blood cell count was normal, but he did have 75% neutrophils. BUN/creatinine was originally 33/2.1, which is more or less his baseline and corresponds to stage IIIB chronic kidney disease. Sodium was withi n normal limits as was bicarbonate. Chest x-ray did not reveal any acute pathology, and x-rays of the patient's hand were unremarkable as well. He was seen by infectious disease and was diagnosed with right hand cellulitis for which he was start ed on Teflaro and admitted for further evaluation and management. Of note, the day after admission, his BUN/creatinine had increased to 47/3.3, and his sodium was 131. In reviewing the medications the patient had been on home, he was not on any diuretics nor on any ZENON inhibitors or angiotensin receptor blockers, and he was not on any NSAIDs. He does state that he dodd s had almost no oral intake for approximately 3 days or so prior to admission, and even now, he has v dmitry poor oral intake. His minimum blood pressure on admission is 118/68, which is low for this patie nt with chronic ____. On admission, he was started on ibuprofen 800 mg orally 3 times a day. However, this was discontinue d yesterday. At present, he is on intravenous fluids with one-half normal saline. REVIEW OF SYSTEMS: Taken across all 10 systems in 14 points and was negative unless stated otherwise above. 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 He also has a known history of chronic consti pation. MEDICATIONS: Medications that the patient had been receiving at home prior to admission included tra madol 50 mg orally 3 times a day as needed, clonidine 0.1 mg orally twice daily, pantoprazole 40 mg o rally daily, Levemir 12 units subcutaneously at bedtime, Feosol 324 mg orally twice daily, Lexapro 5 mg orally daily, atorvastatin 40 mg orally daily, aspirin 81 mg orally daily, Abilify 5 mg orally nig htly. ALLERGIES: The patient had no known drug allergies. SOCIAL HISTORY: Notable for the patient having been a smoker in the past, although he no longer smok es. He used to drink alcohol, but no longer does so. There is no illicit drug use. He is currently retired. FAMILY HISTORY: Negative for any inheritable renal diseases, and was otherwise noncontributory. PHYSICAL EXAMINATION: GENERAL APPEARANCE: I saw the patient lying in bed. He was mildly uncomfortable, especially his rig ht hand. VITAL SIGNS: Blood pressure is 170/94, heart rate 70, oral temperature 97.8. Respiratory rate is 18 . Oxygen saturation was 98%. The remainder of the exam is as follows: HEENT: The patient appeared to have poor hygiene and appeared to be older than stated age. He had p lethoric complexion, was normocephalic and atraumatic. There was no sinus tenderness. NECK: Supple with a full range of motion. Trachea midline and freely movable. There was no jugular venous distention that I could appreciate. LUNGS: Lung rodriguez on my exam were grossly clear to auscultation. There were no rales, rhonchi, or wheezing. Diaphragmatic excursion as well as air flow into both lungs rodriguez was bilaterally symmetr ical. CARDIAC: Had a regular rate and rhythm without any rubs or gallops. ABDOMEN: Soft, nontender, without any rebounding, guarding, or rigidity. EXTREMITIES: Had left qpveu-kmz-laxt amputation. The dorsum of his right hand was quite erythematou s, tender, and warm to the touch. NEUROLOGIC: He was nonfocal. SKIN: As stated above. LABORATORY DATA: White count was 9.5 with an H and H of 11.3/32.6, had platelet count of 214,000. T here are 82% neutrophils, 4% lymphocytes, 13% monocytes, 1% eosinophil. Sodium is 131, potassium 3.9 . Chloride is 103, bicarbonate 17. BUN/creatinine is 47/3.3 with a glucose of 227. Calcium is 8.2, but corrects to 9.0 since the albumin is 3.0. Lactic acid level was normal at 1.7 on admission. Ur inalysis was yellow, clear with a pH of 6.0, specific gravity of greater than 1.030, protein of 100, small blood. Blood cultures have grown out Staph aureus since admission. Imaging is as stated above. IMPRESSION AND PLAN: The patient is a 71-year-old gentleman with type 2 diabetes mellitus that is in sulin-dependent, hypertension, dyslipidemia, peripheral arterial disease with left tlbsf-dhg-vzwg amp utation following osteomyelitis of his left foot, stage IIIB chronic kidney disease with a baseline c reatinine of approximately 2, admitted with pain in his right hand and elbow, and diagnosed with cell ulitis. Since admission, he has developed acute kidney injury superimposed on his stage IIIB chronic kidney disease. His hyponatremia and metabolic acidosis are both consequences of his acute kidney i njury. His blood pressure has been relatively low versus his baseline. Of note, the patient states that at home he had minimal oral intake, and this is manifested in the fact that his specific gravity is greater than 1.030. In this setting with concurrent admission of a nonsteroidal antiinflammatory drug (he had been on ibuprofen), his ability to intrarenally vasodilate in the setting of hypovolemi a was abrogated, and the patient thus developed acute kidney injury. Certainly, I agree with discontinuing his ibuprofen. I also agree with gentle hydration for this pat ient, and he is currently on 1/2 normal saline. We will recheck his laboratory study exam tomorrow t o see if his renal function has improved. If his renal function does not improve, then we will check a bladder ultrasound to rule out some degree of retention in this patient. As his renal function im proves, I expect his metabolic acidosis to improve as well, but given his advanced chronic kidney dis ease, he will likely ultimately require sodium bicarbonate supplementation to ensure that it stays at greater than 22, which would be our goal. Of note, although the patient's estimated global filtration rate is in the low 30s, given the fact th at he has diminished muscle mass as a result of sarcopenia, malnutrition, and his left below-knee amp utation, his renal function is worse, and the estimated global filtration rate would suggest in patie nts with chronic kidney disease or at a high risk of developing acute kidney injury, and any recovery from acute kidney injury, if any occurs at all, may be prolonged. For now, the patient does remain on Teflaro as well. I agree with heparin 5000 units subcutaneously twice daily for deep venous thrombosis prophylaxis. With acute kidney injury, the vancomycin we can dose based on drug level while he has acute kidney injury, and we will repeat his labs again tomorrow . I will be following this complex patient closely for the above complex medical problems. I thank you very much for the courtesy of this consultation. Suraj Martin MD cc: [id number] TT: 08/18/2016 09:35:11 Confirmation # [id number] Dictation # [id number] laura
--- NOTE | 2016-08-18 14:48 | PN ---
DATE: 08/18/2016 SUBJECTIVE: A 71-year-old male seen at bedside for continued evaluation and management of clinical o steomyelitis of the right third digit. The patient is scheduled for surgical intervention tomorrow a nd he will be kept n.p.o. after midnight tonight. VITAL SIGNS: Reveal a temperature of 97.8, pulse rate of 69, blood pressure 170/94, respiratory rate of 18. LABORATORY DATA: Reveal a white count of 9.5, hemoglobin of 11.3, hematocrit of 32.6, platelet count of 214. Microbiology report reveals gram-positive cocci growth on the right foot. OBJECTIVE: There is noted to be left below-knee amputation. Right foot presents with a full thickne ss ulceration at the dorsal aspect of the third digit that shows visible proximal phalangeal bone, wh ich is easily palpated. There is also noted to be a plantar ulceration submetatarsal 2. There are n o signs of ascending cellulitis. ASSESSMENT: Osteomyelitis of the right third digit. PLAN: The patient's wound was cleansed with normal sterile saline and we will apply dry sterile dres sing. We will keep patient n.p.o. as he is scheduled for digital amputation on his right foot tomorr ow. The patient will be seen and followed daily. Wu Hernandez DPM cc: [id number] TT: 08/18/2016 14:47:40 Confirmation # [id number] Dictation # [id number] niecy
--- NOTE | 2016-08-18 14:53 | RAD ---
PROCEDURE: Right Foot Radiographs. HISTORY: ulcer 3rd toe right COMPARISON: 02/15/2013. FINDINGS: BONES: No evidence of acute osteomyelitis. Hammertoe deformities noted. Stable findings status post resection of the 1st digit. JOINTS: Normal. SOFT TISSUES: Normal. OTHER FINDINGS: None. IMPRESSION: No acute findings related to/accounting for the clinical presentation.
--- NOTE | 2016-08-18 15:52 | CARD ---
APPROVED REPORT EXAM: Two-dimensional and M-mode echocardiogram with Doppler and color Doppler. INDICATION Infection:Rule out subacute bacterial endocarditis 2D DIMENSIONS Left Atrium (2D)4.2 (1.6-4.0cm)IVSd1.0 (0.7-1.1cm) LVDd4.4 (3.9-5.9cm)PWd1.2 (0.7-1.1cm) LVDs3.5 (2.5-4.0cm)FS (%) 20.7 % LVEF (%)42.4 (>50%) M-Mode DIMENSIONS Aortic Root3.20 (2.2-3.7cm)Aortic Cusp Exc.1.70 (1.5-2.0cm) Aortic Valve AoV Peak Zqpblhmp737.0cm/Keyla Peak GR.6mmHg Mitral Valve MV E Kotpjngf99.7cm/sMV A Ymnuyiac753.0cm/sE/A ratio0.5 TDI Lateral E' Peak V6.82cm/sMedial E' Peak V5.36cm/sE/Lateral E'7.9 E/Medial E'10.0 Pulmonary Valve PV Peak Ujtictoz37.6cm/sPV Peak Grad.1mmHg Tricuspid Valve TR Peak [id number]/sRAP [id number] Peak Gr.28mmHg [id number] LEFT VENTRICLE The left ventricle is normal size. There is normal left ventricular wall thickness. The systolic function is mildly to moderately impaired. Transmitral Doppler flow pattern is Grade I-abnormal relaxation pattern. RIGHT VENTRICLE The right ventricle is normal size. There is normal right ventricular wall thickness. The right ventricular systolic function is normal. ATRIA The left atrium is borderline dilated. The right atrium size is normal. AORTIC VALVE The aortic valve is mildly thickened but opens well. MITRAL VALVE The mitral valve is mildly thickened. TRICUSPID VALVE There is mild pulmonary hypertension. PULMONIC VALVE There is mild pulmonic valvular regurgitation. GREAT VESSELS The aortic root is normal in size. PERICARDIAL EFFUSION There is a trace loculated anterior pericardial effusion. <Conclusion> The left ventricle is normal size. There is normal left ventricular wall thickness. The systolic function is mildly to moderately impaired. Transmitral Doppler flow pattern is Grade I-abnormal relaxation pattern. There is mild pulmonary hypertension. No vegitation seen
--- NOTE | 2016-08-18 15:59 | CP.PCM.PN ---
Subjective - Date & Time of Evaluation Date of Evaluation: 08/18/16 Time of Evaluation: 10:30 - Subjective Subjective: Right hand is still swollen but it is a little better, no fevers overnight, no nausea. Objective - Vital Signs/Intake and Output Vital Signs (last 24 hours): Temp Pulse Resp BP Pulse Ox 97.8 F 70 18 170/94 H 99 08/17/16 16:00 08/17/16 19:00 08/17/16 16:00 08/17/16 19:00 08/17/16 16:00 Intake and Output: 08/18/16 08/18/16 06:59 18:59 Intake Total 480 1160 Output Total 500 800 Balance -20 360 - Medications Medications: Current Medications Aripiprazole (Abilify) 5 mg PO HS [facility] Last Admin: 08/17/16 23:28 Dose: Not Given Aspirin (Ecotrin) 81 mg PO 0800 [facility] Last Admin: 08/17/16 10:04 Dose: Not Given Atorvastatin Calcium (Lipitor) 40 mg PO DIN [facility] Last Admin: 08/17/16 17:00 Dose: Not Given Clonidine HCl (Catapres) 0.1 mg PO BID [facility] Last Admin: 08/17/16 19:00 Dose: Not Given Escitalopram Oxalate (Lexapro) 5 mg PO QAM [facility] Last Admin: 08/17/16 10:05 Dose: Not Given Heparin Sodium (Porcine) (Heparin) 5,000 units SC Q12 [facility] PRN Reason: Protocol Last Admin: 08/17/16 23:27 Dose: Not Given Ceftaroline Fosamil 400 mg/ (Sodium Chloride) 100 mls @ 100 mls/hr IVPB Q12 [facility] PRN Reason: Protocol Stop: 08/24/16 12:18 Last Admin: 08/17/16 23:23 Dose: 100 mls/hr Sodium Chloride (Sodium Chloride 0.45%) 1,000 mls @ 30 mls/hr IV .Q24H [facility] Last Admin: 08/17/16 10:02 Dose: 30 mls/hr Insulin Detemir (Levemir) 12 unit SC [facility] Last Admin: 08/17/16 23:27 Dose: Not Given Morphine Sulfate (Morphine) 2 mg IVP Q4H PRN PRN Reason: Pain, moderate (4-7) Pantoprazole Sodium (Protonix Ec Tab) 40 mg PO ACB [facility] Last Admin: 08/18/16 08:03 Dose: Not Given - Labs Labs: 08/16/16 15:30 08/16/16 15:30 PT 10.8 Seconds (9.9-11.8) 08/15/16 09:09 INR 1.00 (0.93-1.08) 08/15/16 09:09 APTT 31.4 Seconds (23.7-30.8) H 08/15/16 09:09 - Constitutional Appears: Non-toxic, No Acute Distress - Head Exam Head Exam: NORMAL INSPECTION - ENT Exam ENT Exam: Mucous Membranes Moist - Neck Exam Neck Exam: absent: Lymphadenopathy, Meningismus - Respiratory Exam Respiratory Exam: Decreased Breath Sounds - Cardiovascular Exam Cardiovascular Exam: +S1, +S2 - GI/Abdominal Exam GI & Abdominal Exam: Soft. absent: Tenderness - Extremities Exam Additional comments: right hand with swelling and erythema, less compared to yesterday Assessment and Plan - Assessment and Plan (Free Text) Plan: Assessment right hand cellulitis and right 3rd toe ulcer with probable osteomyelitis with associated methicillin-resistant Staph aureus bacteremia history of left sided healthcare-associated pneumonia history of left stump infection with clinical osteomyelitis S/P left BKA with associated MRSA bacteremia history of left foot infection S/P transmetatarsal amputation (12/25/2015) with viable margins in a patient with a history of left foot gangrene and abscess S/ P incision and drainage of an abscess and first ray resection with osteomyelitis with Klebsiella; this is also associated with Klebsiella bacteremia diabetes mellitus alcohol abuse chronic renal failure Plan Continue Teflaro (day 3) and given one dose of IV Vancomycin; blood cultures were repeated 2 days ago which are negative; will follow up identification and sensitivities of the gram positive cocci in the right 3rd toe ulcer swab; ordered 2D echo and will follow up results Reviewed Orthopedic consult and Podiatry evaluation Will continue to monitor clinically
[2016-08-18 17:18] VITALS: RESP 20
--- NOTE | 2016-08-18 21:50 | CON ---
DATE: 08/18/2016 TIME OF CONSULTATION: 09:25 p.m. CHIEF COMPLAINT/HISTORY OF PRESENT ILLNESS: This is a 71-year-old gentleman that I know from previous interventions on the left lower extremity. He was admitted with issues with his right elbow/hand and also deterioration in his chronic renal failure. He was seen by podiatry and noted to have an ischemic ulceration and early gangrene of a right third digit. Amputation of the digit is anticipated. Unfortunately, the patient is a known advanced vasculopath. He underwent recent left BKA for a nonhealing transmetatarsal amputation. He is a type 2 diabetic. He was a previous smoker. His baseline creatinine is in the 2's. His creatinine now is in the low 3's. He is being gently hydrated. On the right, he has palpable femoral and popliteal pulses. His distal pulses are not palpable. His JOANNA/PVR exam demonstrates SFA and below knee disease. His ankle waveform is severely blunted on the right. His metatarsal waveform is nearly flat. RECOMMENDATIONS: The patient presents a difficult dilemma. He needs evaluation of his right infrainguinal disease, before digital amputation; however, he has significant renal insufficiency. Hydration should be continued. Mucomyst will be added. Given his pulse exam, I believe the contrast load can be minimalized. His iliac arteries were normal on a prior angiogram in 2016. Limited below-knee imaging can be performed, with minimal contrast use. Unfortunately, his revascularization options may be limited. This was discussed with the patient. Tentatively, we will evaluate his labs on Wednesday, and consider an angiogram with limited contrast at that time. Sanju Willis MD cc: [id number] TT: 08/18/2016 21:49:30 Confirmation # [id number] Dictation # [id number] pawan MTDStuart
--- NOTE | 2016-08-18 22:18 | US ---
PROCEDURE: Lower extremity JOANNA exam HISTORY: Severe peripheral vascular disease. Previous left BKA. Ischemic ulceration right foot PHYSICIAN(S): Sanju Willis MD. FINDINGS: The right resting JOANNA is inaccurate due to calcification, 0.83. The brachial systolic pressures are symmetric. The right high thigh PVR waveform and pressure is relatively normal. The right calf PVR waveform may be slightly decreased in amplitude. This could represent subtle right SFA occlusive disease. There is a significant 60 mm gradient across the right knee. The right ankle and metatarsal waveforms are severely blunted and nearly flat. The findings are consistent with distal right SFA, popliteal, trifurcation, and/or tibial disease. IMPRESSION: 1. Inaccurate JOANNA due to calcification. 2. Distal right SFA, popliteal, trifurcation, and/ tibial disease. The right distal waveforms are severely blunted and nearly flat
[2016-08-18] MEDS: Insulin Detemir 100 units/ml Vial (Levemir) SC SCH (22:34)
[2016-08-18] MEDS: Sodium Chloride 0.45% 1,000 ML IV SCH (22:43)
--- NOTE | 2016-08-19 01:33 | PN ---
DATE: 08/18/2016 The patient was seen earlier today on a general medical floor. He was lethargic, but arousable. At times he did appear to be somewhat confused. Of note, he refused morning fingerstick as well as some of his medications. There is no abdominal pain, nausea or vomiting. PHYSICAL EXAMINATION: VITAL SIGNS: Blood pressure is 172/84, heart rate is 78, oral temperature is 98.7, respiratory rate is 18, oxygen saturation is 99%. I's and O's were documented as 2400/1300. The remainder of the exam is as follows: HEENT: The patient was normocephalic and atraumatic. There is no sinus tenderness. He did appear t o be somewhat ____ NECK: There was no jugular venous distension. CHEST: Lungs rodriguez on my exam were grossly clear without any rales, rhonchi or wheezing. CARDIAC: Regular rate and rhythm without any rubs or gallops. ABDOMEN: Soft and nontender. No rebounding, guarding or rigidity. EXTREMITIES: Had left vfptv-vxq-vpik amputation. He had toes missing from his right foot. He also had erythema along the dorsal aspect of his right hand. SKIN: As stated above. LABORATORY STUDIES: As follows: Sodium this morning is 140, potassium 4.1, chloride 108, bicarbonat e 15, BUN/creatinine 45/3.6 with a glucose of 220, calcium is 8.7. Cultures from his right foot have grown gram-positive cocci. Blood cultures have grown out MRSA. Bladder ultrasound revealed a postv oid residual of only 17 mL and solitary bladder calculus, it did not appear to be obstructing urinary flow. Microbiology is as stated above as is imaging. IMPRESSION AND PLAN: The patient is a 71-year-old gentleman with type 2 diabetes mellitus that is in sulin-dependent, hypertension, dyslipidemia, peripheral arterial disease with left pejzn-ucs-aopt amp utation following osteomyelitis of his left foot, stage IIIB chronic kidney disease with a baseline c reatinine of approximately 2, admitted with pain in his right hand and elbow. Diagnosed with celluli tis. He has developed acute kidney injury during hospitalization in the setting of relative hypotens ion, minimal oral intake for several days prior to admission and having been on NSAID for pain. 1. The patient's creatinine continues to increase. Urinalysis has specific gravity greater than 1.0 30 consistent with volume depletion. Urine sodium, however, is 96, which is surprising since I would have expected urine sodium to be low if he was truly volume depleted. Nonetheless, for now, I would continue the patient on intravenous fluids (he is receiving 1/2 normal saline at 80 mL per hour for now). 2. Interventional radiology followup is appreciated. He is noted to have an ischemic ulceration, ea rly gangrene of the right third digit with amputation of the digit anticipated and is to have an gissell ogram on Wednesday. In anticipation of this, he is to continue intravenous fluids for now and has also been started on Mucomyst. 3. For analgesia avoid future NSAIDS and we will give Tylenol instead. 4. For vascular disease. Continue atorvastatin as well as aspirin. 5. Continue Levemir and ultimately the patient would benefit from a goal hemoglobin A1c of approxima tely 6.5%. 6. For cellulitis of his hand continue Teflaro. Review of systems, past medical history, social history and family history were all reviewed and ther e were no new changes. Suraj Martin MD cc: [phone] TT: 08/19/2016 01:32:18 Confirmation # [id number] Dictation # [id number] jn
[2016-08-19 08:27] VITALS: PULSE 60
--- NOTE | 2016-08-19 09:42 | CP.PCM.PN ---
Subjective - Date & Time of Evaluation Date of Evaluation: 08/19/16 Time of Evaluation: 09:38 - Subjective Subjective: 71 y/o male seen at bedside with attending Dr. Whitley for right foot 3rd digit osteomyelitis. Patient will not be taken to the OR until optimized by vascular. Patient denies any acute events overnight. Patients dressing is off, but has multipodus boot to right leg intact. Patient denies n/f/v/c/d/sob. Objective - Vital Signs/Intake and Output Vital Signs (last 24 hours): Temp Pulse Resp BP Pulse Ox 98.9 F 60 20 156/82 H 95 08/19/16 08:00 08/19/16 08:00 08/19/16 08:00 08/19/16 08:00 08/19/16 08:00 Intake and Output: 08/19/16 08/19/16 06:59 18:59 Intake Total 2240 Output Total 950 Balance 1290 - Medications Medications: Current Medications Acetylcysteine (Acetylcysteine 20%) 3 ml PO BID [facility] Stop: 08/22/16 22:00 Aripiprazole (Abilify) 5 mg PO HS [facility] Last Admin: 08/18/16 22:33 Dose: Not Given Aspirin (Ecotrin) 81 mg PO 0800 [facility] Last Admin: 08/18/16 11:18 Dose: Not Given Atorvastatin Calcium (Lipitor) 40 mg PO DIN [facility] Last Admin: 08/18/16 17:18 Dose: Not Given Clonidine HCl (Catapres) 0.1 mg PO BID [facility] Last Admin: 08/18/16 17:18 Dose: 0.1 mg Escitalopram Oxalate (Lexapro) 5 mg PO QAM [facility] Last Admin: 08/18/16 11:18 Dose: Not Given Heparin Sodium (Porcine) (Heparin) 5,000 units SC Q12 [facility] PRN Reason: Protocol Last Admin: 08/18/16 22:33 Dose: Not Given Ceftaroline Fosamil 400 mg/ (Sodium Chloride) 100 mls @ 100 mls/hr IVPB Q12 [facility] PRN Reason: Protocol Stop: 08/24/16 12:18 Last Admin: 08/18/16 22:36 Dose: 100 mls/hr Sodium Chloride (Sodium Chloride 0.45%) 1,000 mls @ 80 mls/hr IV .[id number] [facility] Stop: 08/22/16 12:00 Last Admin: 08/18/16 22:43 Dose: 80 mls/hr Insulin Detemir (Levemir) 12 unit SC HS [facility] Last Admin: 08/18/16 22:34 Dose: Not Given Morphine Sulfate (Morphine) 2 mg IVP Q4H PRN PRN Reason: Pain, moderate (4-7) Pantoprazole Sodium (Protonix Ec Tab) 40 mg PO ACB [facility] Last Admin: 08/18/16 08:03 Dose: Not Given - Labs Labs: 08/16/16 15:30 08/18/16 09:25 PT 10.8 Seconds (9.9-11.8) 08/15/16 09:09 INR 1.00 (0.93-1.08) 08/15/16 09:09 APTT 31.4 Seconds (23.7-30.8) H 08/15/16 09:09 - Constitutional Appears: Well, Non-toxic, No Acute Distress - Extremities Exam Additional comments: below knee amputation to left leg vasc: nonpalpable pedal pulses, CFT < 4 sec to all digits, TG wnl neuro: grossly diminished derm: full thickness ulceration to the dorsal aspect of the 3rd digit with bone exposed, plantar hyperkeratotic lesion sub met 2, no erythema or ascending cellutitis, no drainage, no purulence - Neurological Exam Neurological Exam: Alert, Awake, Oriented x3 - Psychiatric Exam Psychiatric exam: Normal Affect, Normal Mood Assessment and Plan - Assessment and Plan (Free Text) Assessment: 71 y/o male seen at bedside for right foot 3rd digit ulceration with osteomyelitis Plan: patient evaluated and seen at bedside with attending Dr. Whitley labs and vitals reviewed; afebrile wound cx: preliminary- gram positive cocci - covered by levaquin applied DSD to right 3rd toe continue IV abx as per ID patient tentatively scheduled for OR on wednesday at 7:30 pending vascular optimization podiatry will continue to monitor while patient remains in house
[2016-08-19] MEDS: Sodium Chloride 0.45% 1,000 ML IV SCH (10:09)
--- NOTE | 2016-08-19 11:02 | DS ---
The patient to go the TCU today. He needs to be on IV antibiotics as per infectious disease. He has a right hand cellulitis and a right foot cellulitis. He is on medications as per infectious disease . He is comfortable in bed. He is eating well. PHYSICAL EXAMINATION: VITAL SIGNS: 98.7 temp, 78 pulse, 172/80 blood pressure, 20 respiratory rate, 99% O2 sat on room air . HEENT: Head is atraumatic, normocephalic. HEART: Regular rate. LUNGS: Clear to auscultation. ABDOMEN: Soft. EXTREMITIES: He has got a left BKA, right hand is inflamed with cellulitis, so is his right foot. MEDICATIONS: He is on Abilify, acetylcysteine, Catapres, ceftaroline, Ecotrin, heparin, Levemir, Sudheer apro, Lipitor, morphine, Protonix and IV fluids. LABORATORY DATA: He has a 9.5 white count as the last time we have it, it was on the ; 11.3 hemo globin, 140 sodium, potassium 4.1, BUN 45, creatinine 3.6. He is on IV fluids, is being seen by renal, interventional radiologist, infectious disease, podiatry, and if we can get him over to TCU today to finish the care and treatment for his kidney issues, and his cellulitis and his poor circulation, that will be the plan. He is also a diabetic. Kavon Patiño DO cc: [id number] TT: 08/19/2016 11:01:37 an
--- NOTE | 2016-08-19 11:32 | CP.PCM.PN ---
Subjective - Date & Time of Evaluation Date of Evaluation: 08/19/16 Time of Evaluation: 11:30 - Subjective Subjective: Pt awake, alert. Feels better but still having pain mostly at 3rd finger. Afebrile R hand: swelling and erythema improved pain with ROM of 3rd MCP mild pain with ROM at 2nd MCP grossly NVI Pt on IV antibiotics Will order MRI of hand to r/o deep infection Objective - Vital Signs/Intake and Output Vital Signs (last 24 hours): Temp Pulse Resp BP Pulse Ox 98.9 F 60 20 156/82 H 95 08/19/16 08:00 08/19/16 08:00 08/19/16 08:00 08/19/16 08:00 08/19/16 08:00 Intake and Output: 08/19/16 08/19/16 06:59 18:59 Intake Total 2240 Output Total 950 Balance 1290 - Medications Medications: Current Medications Acetylcysteine (Acetylcysteine 20%) 3 ml PO BID [facility] Stop: 08/22/16 22:00 Aripiprazole (Abilify) 5 mg PO HS [facility] Last Admin: 08/18/16 22:33 Dose: Not Given Aspirin (Ecotrin) 81 mg PO 0800 [facility] Last Admin: 08/18/16 11:18 Dose: Not Given Atorvastatin Calcium (Lipitor) 40 mg PO DIN [facility] Last Admin: 08/18/16 17:18 Dose: Not Given Clonidine HCl (Catapres) 0.1 mg PO BID [facility] Last Admin: 08/18/16 17:18 Dose: 0.1 mg Escitalopram Oxalate (Lexapro) 5 mg PO QAM [facility] Last Admin: 08/18/16 11:18 Dose: Not Given Heparin Sodium (Porcine) (Heparin) 5,000 units SC Q12 [facility] PRN Reason: Protocol Last Admin: 08/18/16 22:33 Dose: Not Given Ceftaroline Fosamil 400 mg/ (Sodium Chloride) 100 mls @ 100 mls/hr IVPB Q12 [facility] PRN Reason: Protocol Stop: 08/24/16 12:18 Last Admin: 08/19/16 10:08 Dose: 100 mls/hr Sodium Chloride (Sodium Chloride 0.45%) 1,000 mls @ 80 mls/hr IV .[id number] [facility] Stop: 08/22/16 12:00 Last Admin: 08/19/16 10:09 Dose: 80 mls/hr Insulin Detemir (Levemir) 12 unit SC HS [facility] Last Admin: 08/18/16 22:34 Dose: Not Given Morphine Sulfate (Morphine) 2 mg IVP Q4H PRN PRN Reason: Pain, moderate (4-7) Pantoprazole Sodium (Protonix Ec Tab) 40 mg PO ACB [facility] Last Admin: 08/18/16 08:03 Dose: Not Given - Labs Labs: 08/16/16 15:30 08/18/16 09:25 PT 10.8 Seconds (9.9-11.8) 08/15/16 09:09 INR 1.00 (0.93-1.08) 08/15/16 09:09 APTT 31.4 Seconds (23.7-30.8) H 08/15/16 09:09
[2016-08-19] MEDS: Pantoprazole 40 mg EC Tab PO SCH (14:38)
--- NOTE | 2016-08-19 16:28 | CP.PCM.PN ---
Subjective - Date & Time of Evaluation Date of Evaluation: 08/19/16 Time of Evaluation: 15:35 - Subjective Subjective: Right hand is a little less swollen, no fevers overnight, no diarrhea. Objective - Vital Signs/Intake and Output Vital Signs (last 24 hours): Temp Pulse Resp BP Pulse Ox 98.9 F 60 20 156/82 H 95 08/19/16 08:00 08/19/16 08:00 08/19/16 08:00 08/19/16 08:00 08/19/16 08:00 Intake and Output: 08/19/16 08/19/16 06:59 18:59 Intake Total 2240 Output Total 950 Balance 1290 - Medications Medications: Current Medications Acetylcysteine (Acetylcysteine 20%) 3 ml PO BID [facility] Stop: 08/22/16 22:00 Aripiprazole (Abilify) 5 mg PO HS [facility] Last Admin: 08/18/16 22:33 Dose: Not Given Aspirin (Ecotrin) 81 mg PO 0800 [facility] Last Admin: 08/19/16 14:37 Dose: Not Given Atorvastatin Calcium (Lipitor) 40 mg PO DIN [facility] Last Admin: 08/18/16 17:18 Dose: Not Given Clonidine HCl (Catapres) 0.1 mg PO BID [facility] Last Admin: 08/19/16 14:37 Dose: Not Given Escitalopram Oxalate (Lexapro) 5 mg PO QAM [facility] Last Admin: 08/19/16 14:38 Dose: Not Given Heparin Sodium (Porcine) (Heparin) 5,000 units SC Q12 [facility] PRN Reason: Protocol Last Admin: 08/19/16 14:37 Dose: Not Given Ceftaroline Fosamil 400 mg/ (Sodium Chloride) 100 mls @ 100 mls/hr IVPB Q12 [facility] PRN Reason: Protocol Stop: 08/24/16 12:18 Last Admin: 08/19/16 10:08 Dose: 100 mls/hr Sodium Chloride (Sodium Chloride 0.45%) 1,000 mls @ 80 mls/hr IV .[id number] [facility] Stop: 08/22/16 12:00 Last Admin: 08/19/16 10:09 Dose: 80 mls/hr Insulin Detemir (Levemir) 12 unit SC [facility] Last Admin: 08/18/16 22:34 Dose: Not Given Morphine Sulfate (Morphine) 2 mg IVP Q4H PRN PRN Reason: Pain, moderate (4-7) Pantoprazole Sodium (Protonix Ec Tab) 40 mg PO ACB [facility] Last Admin: 08/19/16 14:38 Dose: Not Given - Labs Labs: 08/16/16 15:30 08/18/16 09:25 PT 10.8 Seconds (9.9-11.8) 08/15/16 09:09 INR 1.00 (0.93-1.08) 08/15/16 09:09 APTT 31.4 Seconds (23.7-30.8) H 08/15/16 09:09 - Constitutional Appears: Non-toxic, No Acute Distress - Head Exam Head Exam: NORMAL INSPECTION - ENT Exam ENT Exam: Mucous Membranes Moist - Neck Exam Neck Exam: absent: Lymphadenopathy, Meningismus - Respiratory Exam Respiratory Exam: Decreased Breath Sounds - Cardiovascular Exam Cardiovascular Exam: +S1, +S2 - GI/Abdominal Exam GI & Abdominal Exam: Soft. absent: Tenderness - Extremities Exam Additional comments: right hand with slowly decreasing swelling Assessment and Plan - Assessment and Plan (Free Text) Plan: Assessment right hand cellulitis and right 3rd toe ulcer with probable osteomyelitis with associated methicillin-resistant Staph aureus bacteremia history of left sided healthcare-associated pneumonia history of left stump infection with clinical osteomyelitis S/P left BKA with associated MRSA bacteremia history of left foot infection S/P transmetatarsal amputation (12/25/2015) with viable margins in a patient with a history of left foot gangrene and abscess S/ P incision and drainage of an abscess and first ray resection with osteomyelitis with Klebsiella; this is also associated with Klebsiella bacteremia diabetes mellitus alcohol abuse chronic renal failure Plan Continue Teflaro (day 4) and given one dose of IV Vancomycin; blood cultures were repeated 3 days ago which are negative; will follow up identification and sensitivities of the gram positive cocci in the right 3rd toe ulcer swab; 2D echo does not show vegetations; awaiting plan of Podiatry for the toe - if removed, we may be able to decrease the duration of antibiotics Reviewed Orthopedic consult and Podiatry evaluation ; follow up MRI of the right hand Will continue to monitor clinically
[2016-08-19 17:10] VITALS: BP 145/67; TEMP 98.1; O2SAT 98
--- NOTE | 2016-08-20 04:56 | PN ---
DATE: 08/19/2016 SUBJECTIVE: The patient was seen on a general medical floor. He denied any complaint except pain in his right hand. He was fully cognizant of all events that going on around him and that there was a planned angiogram to occur on Wednesday. There was no chest pain or shortness of breath. OBJECTIVE: VITAL SIGNS: Blood pressure is 145/67, heart rate 60, oral temperature is 98.1, respiratory rate is 18, oxygen saturation was 98%. I's and O's were documented as 3800/1700. The remainder of the exam was as follows: HEENT: The patient was normocephalic and atraumatic. There was no sinus tenderness. NECK: Supple with a full range of motion. Trachea midline and freely movable. Thyroid was nontende r nor was it enlarged. There was no jugular venous distention that I could appreciate. Conjunctivae were neither pale nor icteric. CHEST: Lung rodriguez are auscultated anteriorly and were clear without any rales, rhonchi or wheezing. CARDIAC: Had a regular rate and rhythm without any rubs. ABDOMEN: Soft, mildly distended, but nontender, without any rebounding, guarding or rigidity. There was no hepatosplenomegaly that I could appreciate. EXTREMITIES: Notable for left [id number] amputation. On the right, he had toes that had been am putated. The dorsum of his right hand was also quite erythematous. GENITOURINARY: Had no suprapubic tenderness. LABORATORY STUDIES: Sodium yesterday was 140 with potassium 4.1, chloride of 108, bicarbonate 15, BU N/creatinine is 45/3.6 with a glucose of 220. There is no recent CBC. Blood cultures have grown MRS A. There is no new imaging to report. IMPRESSION AND PLAN: The patient is a 71-year-old gentleman with type 2 diabetes mellitus that is in sulin-dependent, hypertension, dyslipidemia, peripheral arterial disease with left fbmiv-xui-srsu amp utation following osteomyelitis of his left foot, stage IIIB chronic kidney disease with a baseline c reatinine of approximately 2, originally admitted with pain in his right hand and elbow and diagnosed with cellulitis. Hospitalization has been complicated by acute kidney injury in the setting of rela tive hypotension. It is noted that the patient had almost no intake for several days prior to admiss ion and was also taking an NSAID prior to admission as well. 1. We will need to repeat labs tomorrow, but for now, continue the patient on 1/2 normal saline with 75 mEq of sodium bicarbonate per liter to correct any volume deficit as well as correct his metaboli c acidosis. 2. For cellulitis of his hand, the patient remains on Teflaro. 3. For known peripheral arterial disease, the patient is currently on aspirin as well as atorvastati n. 4. The patient is to have an angio on Wednesday. We will start him on Mucomyst 1200 mg orally twice da terrell beginning tomorrow for a total of 4 doses. 5. Infectious disease followup is appreciated. 6. In addition to the Teflaro, the patient was also given 1 dose of vancomycin. If the toe on the r ight foot with the ulceration is to be amputated, then the duration of antibiotics is to be discontin ued. 7. Orthopedics consultation is appreciated as well. An MRI of the patient's right hand has been ord ered. Review of systems, past medical history, social history and family history were all reviewed and ther e were no new changes. Suraj Martin MD cc: [id number] TT: 08/20/2016 04:55:46 Confirmation # [id number] Dictation # [id number] sherrell
[2016-08-20] MEDS ORDERED: Acetylcysteine 20% Inhal Soln (4ml) PO SCH (10:00)
== END 2016-08-19 17:17 | DRG 603 ==
LOC: ED 08:03 → ERH 09:47 → 5RSO 12:39 → OBSVTOIN 08-16 12:59
PROVIDERS: ADMIT Internal Medicine; ATTEND Internal Medicine
DX: L03.113 Cellulitis of right upper limb (principal); N17.9 Acute kidney failure, unspecified; E87.2 Acidosis; E11.22 Type 2 diabetes mellitus with diabetic chronic kidney disease; E11.51 Type 2 diabetes mellitus with diabetic peripheral angiopathy without gangrene; M86.8X4 Other osteomyelitis, hand; L03.115 Cellulitis of right lower limb; E11.69 Type 2 diabetes mellitus with other specified complication; N18.3 Chronic kidney disease, stage 3 (moderate); I89.1 Lymphangitis; I12.9 Hypertensive chronic kidney disease with stage 1 through stage 4 chronic kidney disease, or unspecified chronic kidney disease; I25.10 Atherosclerotic heart disease of native coronary artery without angina pectoris; E78.00 Pure hypercholesterolemia, unspecified; E78.5 Hyperlipidemia, unspecified; E86.0 Dehydration; F10.10 Alcohol abuse, uncomplicated; F32.89 Other specified depressive episodes; K29.00 Acute gastritis without bleeding; L97.519 Non-pressure chronic ulcer of other part of right foot with unspecified severity; Z79.4 Long term (current) use of insulin; Z79.82 Long term (current) use of aspirin; Z82.49 Family history of ischemic heart disease and other diseases of the circulatory system; Z83.3 Family history of diabetes mellitus; Z86.14 Personal history of Methicillin resistant Staphylococcus aureus infection; Z89.512 Acquired absence of left leg below knee; Z87.891 Personal history of nicotine dependence; Z86.19 Personal history of other infectious and parasitic diseases; Z87.01 Personal history of pneumonia (recurrent); B95.62 Methicillin resistant Staphylococcus aureus infection as the cause of diseases classified elsewhere

== ENCOUNTER 2016-08-19 17:24 | Inpatient (IN) | payer OTHER ==
[2016-08-19] MEDS ORDERED: Sodium Chloride 0.45% 1,000 ML IV SCH (18:30)
[2016-08-19] MEDS: Insulin Detemir 100 units/ml Vial (Levemir) SC SCH (21:55)
[2016-08-19] MEDS ORDERED: INSULIN DETEMIR 12 UNIT SC SCH (22:00)
[2016-08-20] MEDS: Pantoprazole 40 mg EC Tab PO SCH (05:27)
[2016-08-20 08:08] LABS: HEMATOCRIT 31.6 % (42.0-52.0); MEAN CELL VOLUME 84.7 fL (80.0-105.0); MEAN CORPUSCULAR HEMOGLOBIN 28.7 pg (25.0-35.0); MEAN CORPUSCULAR HGB CONC 33.9 g/dl (31.0-37.0); RED CELL DISTRIBUTION WIDTH 14.4 % (11.5-14.5); WHITE BLOOD COUNT 5.6 10^3/ul (4.5-11.0)
[2016-08-20 08:56] LABS: ALKALINE PHOSPHATASE 79 U/L (38-133); ALT/SGPT 15 U/L (7-56); AST/SGOT 21 U/L (15-59); BILIRUBIN,TOTAL 0.5 mg/dL (0.2-1.3); BLOOD UREA NITROGEN 34 mg/dL (7-21); CALCIUM 8.3 mg/dL (8.4-10.5); CARBON DIOXIDE 19 mmol/L (21-33); CHLORIDE 110 mmol/L (98-107); GFR AFRICAN-AMERICAN 29; GLUCOSE,RANDOM 124 mg/dL (70-110); POTASSIUM 4.1 mmol/L (3.6-5.0); SODIUM 137 mmol/L (132-148)
[2016-08-20 09:00] LABS: TOTAL PROTEIN 6.3 g/dL (5.8-8.3)
[2016-08-20 09:09] LABS: ALB/GLOB RATIO 0.8 (1.1-1.8)
[2016-08-20] MEDS ORDERED: Acetylcysteine 20% Inhal Soln (4ml) PO SCH ×2 (10:00)
--- NOTE | 2016-08-20 11:08 | HP ---
HISTORY OF PRESENT ILLNESS: The patient is a 71-year-old white male who I know very well from multiple admissions. He presented with right hand and right foot cellulitis, on IV antibiotics. He is now transferred to the TCU for further IV antibiotics care. I see him resting in bed. He is comfortable. He tells me the hand and foot are slowly improving with the IV antibiotics. He is in good spirits. PAST MEDICAL HISTORY: He has multiple problems. He has been dehydrated, upper respiratory infection, acute renal failure and chronic kidney injury, left pneumonia, high potassiums, high blood pressure, diabetes. He has osteomyelitis. He has a left BKA for osteomyelitis. ALLERGIES: He has no known drug allergies. FAMILY HISTORY: He has hypertension and diabetes in the family. He also has high cholesterol, diabetes, hypertension. MEDICATIONS: He is currently on Abilify, , Catapres, ceftaroline IV, Ecotrin, heparin, Levemir, Lexapro, Lipitor, morphine, Protonix, and sodium bicarbonate. OBJECTIVE: VITAL SIGNS: 97.6 temp, 61 pulse, blood pressure 173/83 and 137/71, oxygen saturation 93-95% on room air. REVIEW OF SYSTEMS: No acute vision changes, no acute hearing changes, no sore throat. No chest pain or shortness of breath. No abdominal pain. The right hand and right foot are mildly red, but are improving. HEENT: His head is atraumatic, normocephalic. Extraocular muscles are intact. Pupils equal, reactive to light. THROAT: Moist, no erythema. NECK: Supple, no JVD. HEART: Regular rate. LUNGS: Have decreased breath sounds, but clear to auscultation. ABDOMEN: Soft, nontender, positive bowel sounds. EXTREMITIES: He has a left BKA. He has right foot redness, right hand redness. These are slowly improving. He has severe arthritis throughout his body. He is on IV antibiotics for his infection. LABORATORY DATA: He currently has a 5.6 white count, 10.7, hemoglobin, hematocrit 31.6, hematocrit, with 320 platelets. Waiting for his CMP to come back. PLAN: He is being seen by infectious disease, orthopedics and podiatry. We will check his labs tomorrow. Get physical therapy. IV antibiotics. Kavon Patiño DO cc: [id number] TT: 08/20/2016 11:07:25 jn [email or web address]
--- NOTE | 2016-08-20 11:18 | CP.PCM.PN ---
<Kymberly Bonner - Last Filed: 08/20/16 11:16> Subjective - Date & Time of Evaluation Date of Evaluation: 08/20/16 Time of Evaluation: 11:16 - Subjective Subjective: 71 y/o male seen at bedside for right foot 3rd digit osteomyelitis. Patient will not be taken to the OR until optimized by vascular. Patient denies any acute events overnight. Patients dressing is off, but has multipodus boot to right leg intact. Patient denies n/f/v/c/d/sob. Objective - Vital Signs/Intake and Output Vital Signs (last 24 hours): Temp Pulse Resp BP Pulse Ox 97.6 F 61 18 137/71 93 L 08/20/16 06:00 08/20/16 06:00 08/20/16 06:00 08/20/16 07:03 08/20/16 06:00 - Medications Medications: Current Medications Acetylcysteine (Acetylcysteine 20%) 6 ml PO BID [facility] Stop: 08/21/16 18:01 Aripiprazole (Abilify) 5 mg PO HS [facility] Last Admin: 08/19/16 21:55 Dose: Not Given Aspirin (Ecotrin) 81 mg PO 0800 [facility] Last Admin: 08/20/16 07:52 Dose: Not Given Atorvastatin Calcium (Lipitor) 40 mg PO DIN [facility] Clonidine HCl (Catapres) 0.1 mg PO BID [facility] Last Admin: 08/20/16 10:56 Dose: Not Given Escitalopram Oxalate (Lexapro) 5 mg PO QAM [facility] Last Admin: 08/20/16 10:57 Dose: Not Given Heparin Sodium (Porcine) (Heparin) 5,000 units SC 0600,1800 [facility] PRN Reason: Protocol Last Admin: 08/20/16 05:27 Dose: Not Given Sodium Bicarbonate 75 meq/ (Sodium Chloride) 1,075 mls @ 75 mls/hr IV .[id number] [facility] Last Admin: 08/20/16 01:44 Dose: 75 mls/hr Ceftaroline Fosamil 400 mg/ (Sodium Chloride) 100 mls @ 100 mls/hr IVPB 0600, 1800 [facility] PRN Reason: Protocol Stop: 08/30/16 06:01 Insulin Detemir (Levemir) 12 unit SC [facility] Last Admin: 08/19/16 21:55 Dose: Not Given Morphine Sulfate (Morphine) 2 mg IVP Q4H PRN PRN Reason: Pain, moderate (4-7) Pantoprazole Sodium (Protonix Ec Tab) 40 mg PO 0600 [facility] Last Admin: 08/20/16 05:27 Dose: Not Given - Labs Labs: 08/20/16 07:45 08/20/16 07:45 - Constitutional Appears: Well, Non-toxic, No Acute Distress - Extremities Exam Additional comments: below knee amputation to left leg vasc: nonpalpable pedal pulses, CFT < 4 sec to all digits, TG wnl neuro: grossly diminished derm: full thickness ulceration to the dorsal aspect of the 3rd digit with bone exposed, plantar hyperkeratotic lesion sub met 2, no erythema or ascending cellutitis, no drainage, no purulence - Neurological Exam Neurological Exam: Alert, Awake, Oriented x3 - Psychiatric Exam Psychiatric exam: Normal Affect, Normal Mood Assessment and Plan - Assessment and Plan (Free Text) Assessment: 71 y/o male seen at bedside for right foot 3rd digit ulceration with osteomyelitis Plan: patient evaluated and seen at bedside labs and vitals reviewed; afebrile wound cx: preliminary- MRSA applied DSD to right 3rd toe continue IV abx as per ID patient tentatively scheduled for OR on wednesday at 7:30 pending vascular optimization podiatry will continue to monitor while patient remains in house <Larissa Whitley - Last Filed: 08/21/16 15:06> Objective - Vital Signs/Intake and Output Vital Signs (last 24 hours): Temp Pulse Resp BP Pulse Ox 98 F 58 L 20 173/77 H 99 08/20/16 16:00 08/21/16 06:27 08/20/16 16:00 08/21/16 06:27 08/20/16 16:00 - Medications Medications: Current Medications Acetylcysteine (Acetylcysteine 20%) 6 ml PO BID [facility] Stop: 08/21/16 18:01 Last Admin: 08/21/16 09:42 Dose: Not Given Aripiprazole (Abilify) 5 mg PO HS [facility] Last Admin: 08/20/16 22:40 Dose: Not Given Aspirin (Ecotrin) 81 mg PO 0800 [facility] Last Admin: 08/21/16 09:39 Dose: Not Given Atorvastatin Calcium (Lipitor) 40 mg PO DIN [facility] Last Admin: 08/20/16 18:19 Dose: Not Given Clonidine HCl (Catapres) 0.1 mg PO BID [facility] Last Admin: 08/21/16 09:34 Dose: Not Given Escitalopram Oxalate (Lexapro) 5 mg PO QAM [facility] Last Admin: 08/21/16 09:39 Dose: Not Given Sodium Bicarbonate 75 meq/ (Sodium Chloride) 1,075 mls @ 75 mls/hr IV .[id number] [facility] Last Admin: 08/21/16 05:40 Dose: Not Given Daptomycin 350 mg/ Sodium (Chloride) 100 mls @ 200 mls/hr IV QOTHERDAY [facility] PRN Reason: Protocol Stop: 08/30/16 15:01 Last Admin: 08/20/16 18:18 Dose: 200 mls/hr Heparin Sodium/Sodium Chloride (Heparin 83502 Units/250ml 1/2 Normal Saline) 250 mls @ 10.434 mls/hr IV .[id number] PRN; Protocol; 18 UNITS/KG/HR PRN Reason: ADJUST RATE PER PROTOCOL Stop: 08/23/16 20:00 Insulin Detemir (Levemir) 12 unit SC HS [facility] Last Admin: 08/20/16 22:41 Dose: Not Given Morphine Sulfate (Morphine) 2 mg IVP Q4H PRN PRN Reason: Pain, moderate (4-7) Last Admin: 08/20/16 23:33 Dose: 2 mg Pantoprazole Sodium (Protonix Ec Tab) 40 mg PO 0600 [facility] Last Admin: 08/21/16 05:40 Dose: Not Given - Labs Labs: 08/20/16 07:45 08/20/16 07:45 Attending/Attestation - Attestation I have personally seen and examined this patient.: Yes I have fully participated in the care of the patient.: Yes I have reviewed all pertinent clinical information, including history, physical exam and plan: Yes
--- NOTE | 2016-08-20 14:55 | CP.PCM.CON ---
History of Present Illness - History of Present Illness History of Present Illness: 70 year old male with PMH of left foot gangrene and abscess S/P incision and drainage of an abscess and first ray resection with osteomyelitis with Klebsiella, diabetes mellitus, history of alcohol abuse, history of renal failure was initially admitted in [facility] because of right hand swelling noted to be cellulitis. He was also noted to have right 3rd toe infection, clinical osteomyelitis. He was found to have MRSA in the blood and the toe. He is being antibiotics for this and planned for surgery on the toe on Wednesday. He is now transferred to [facility] for continued medical therapy and physical rehabilitation. Infectious Diseases consult is requested to continue his antibiotic therapy. Currently the patient still has right hand swelling but it is better and able to move his fingers now. He denies fever or chills, no nausea or vomiting, no chest pain, no cough or colds, no sore throat, no abdominal pain, no dysuria, no diarrhea. Review of Systems - Review of Systems All systems: reviewed and no additional remarkable complaints except (as per HPI ) Past Patient History - Infectious Disease Hx of Infectious Diseases: None - Past Medical History & Family History Past Medical History?: Yes Past Family History: Reviewed and not pertinent - Past Social History Smoking Status: Former Smoker Alcohol: Other (former chronic alcohol use) Drugs: Denies Home Situation {Lives}: With Family - CARDIAC Hx Cardiac Disorders: Yes Hx Congestive Heart Failure: Yes Hx Hypertension: Yes - PULMONARY Hx Respiratory Disorders: Yes (SMOKED CIGARETTES PPD QUIT) - NEUROLOGICAL Hx Neurological Disorder: No Hx Transient Ischemic Attacks (TIA): No - HEENT Hx HEENT Problems: No - RENAL Hx Renal Failure: Yes - ENDOCRINE/METABOLIC Hx Diabetes Mellitus Type 2: Yes - HEMATOLOGICAL/ONCOLOGICAL Hx Blood Disorders: No - INTEGUMENTARY Hx Dermatological Problems: Yes (POST I AND D AND DEBRIDEMENT OF LEFT FOOT.) Other/Comment: amputation left great/2nd toe,L BKA. 08-15-16 IASD TO INBETWEEN GROIN EXTENDS TO IN BETWEEN BUTTOCKS AREA,FLUSHED RED SKIN. CELLULITIS OF RIGHT HAND. LEFT 3RD TOE WITH A 1 CM IN DM WOUND WITH ENCRUSTATION.SWELLING, BURGUNDY SKIN COLORE,DENIES PAIN. - MUSCULOSKELETAL/RHEUMATOLOGICAL Hx Musculoskeletal Disorders: Yes Hx Falls: Yes Hx Unsteady Gait: Yes (L BKA,PROSTEHSIS USED AND WALKER) - GASTROINTESTINAL Hx Gastrointestinal Disorders: Yes (GASTRITIS) - GENITOURINARY/GYNECOLOGICAL Hx Genitourinary Disorders: Yes Hx Incontinence: Yes - PSYCHIATRIC Hx Psychophysiologic Disorder: Yes (ETOH ABUSE H/O,SMOKED CIGARETTES QUIT) Hx Depression: Yes ( 2 YRS AGO 2013) - SURGICAL HISTORY Hx Surgeries: Yes Other/Comment: amputation left 1/2/ toes bka 03/17/2016 - ANESTHESIA Hx Anesthesia: Yes Hx Anesthesia Reactions: Yes Hx Malignant Hyperthermia: No Meds Allergies/Adverse Reactions: Allergies Allergy/AdvReac Type Severity Reaction Status Date / Time No Known Allergies Allergy Verified 08/20/16 02:41 - Medications Medications: Current Medications Acetylcysteine (Acetylcysteine 20%) 6 ml PO BID [facility] Stop: 08/21/16 18:01 Aripiprazole (Abilify) 5 mg PO HS [facility] Last Admin: 08/19/16 21:55 Dose: Not Given Aspirin (Ecotrin) 81 mg PO 0800 [facility] Atorvastatin Calcium (Lipitor) 40 mg PO DIN [facility] Clonidine HCl (Catapres) 0.1 mg PO BID [facility] Last Admin: 08/20/16 05:20 Dose: 0.1 mg Escitalopram Oxalate (Lexapro) 5 mg PO QAM [facility] Heparin Sodium (Porcine) (Heparin) 5,000 units SC 0600,1800 [facility] PRN Reason: Protocol Last Admin: 08/20/16 05:27 Dose: Not Given Sodium Bicarbonate 75 meq/ (Sodium Chloride) 1,075 mls @ 75 mls/hr IV .[id number] [facility] Last Admin: 08/20/16 01:44 Dose: 75 mls/hr Ceftaroline Fosamil 400 mg/ (Sodium Chloride) 100 mls @ 100 mls/hr IVPB 0600, 1800 [facility] PRN Reason: Protocol Stop: 08/30/16 06:01 Insulin Detemir (Levemir) 12 unit SC [facility] Last Admin: 08/19/16 21:55 Dose: Not Given Morphine Sulfate (Morphine) 2 mg IVP Q4H PRN PRN Reason: Pain, moderate (4-7) Pantoprazole Sodium (Protonix Ec Tab) 40 mg PO 0600 [facility] Last Admin: 08/20/16 05:27 Dose: Not Given Results - Vital Signs Recent Vital Signs: Last Vital Signs Temp 97.6 F 08/20/16 06:00 Pulse 61 08/20/16 06:00 Resp 18 08/20/16 06:00 BP 173/83 H 08/20/16 06:00 Pulse Ox 93 L 08/20/16 06:00 - Labs Result Diagrams: 08/20/16 07:45 08/20/16 07:45 Assessment & Plan - Assessment and Plan (Free Text) Assessment: Assessment right hand cellulitis and right 3rd toe ulcer with probable osteomyelitis with associated methicillin-resistant Staph aureus bacteremia history of left sided healthcare-associated pneumonia history of left stump infection with clinical osteomyelitis S/P left BKA with associated MRSA bacteremia history of left foot infection S/P transmetatarsal amputation (12/25/2015) with viable margins in a patient with a history of left foot gangrene and abscess S/ P incision and drainage of an abscess and first ray resection with osteomyelitis with Klebsiella; this is also associated with Klebsiella bacteremia diabetes mellitus alcohol abuse chronic renal failure Plan change Teflaro to Daptomycin (day 5 total antibiotics), renally-adjusted; repeat blood cultures are negative; 2D echo does not show vegetations; plan for surgery on the toe on Wednesday Reviewed Orthopedic consult and Podiatry evaluation Will continue to monitor clinically
[2016-08-20] MEDS: Morphine 2 mg/ml ISec IVP PRN ×2 (18:26→23:33)
[2016-08-20] MEDS: Insulin Detemir 100 units/ml Vial (Levemir) SC SCH (22:41)
[2016-08-21] MEDS: Pantoprazole 40 mg EC Tab PO SCH (05:40)
--- NOTE | 2016-08-21 10:49 | PN ---
DATE: 08/21/2016 I saw the patient in presurgery for his angiogram with Dr. Sanju Willis. He is comfortable, resting in bed. His right hand has gotten more red than the other day. He is currently on Abilify, acetylcysteine, Catapres. His antibiotics were changed to daptomycin, which I think will do the trick. Ecotrin, heparin, Levemir, Lexapro, Lipitor, morphine, Protonix, sodium bicarb. He is eating. He is a little bit uncomfortable with his right hand. He has a 98 temp, 61 pulse, 163/73 blood pressure, 20 respiratory rate, and 99% O2 sat on room air. HEAD: Atraumatic, normocephalic. NECK: Supple. MOUTH: Moist. HEART: Regular rate. LUNGS: Decreased breath sounds, but clear to auscultation. ABDOMEN: Soft. EXTREMITIES: His right foot and right hand are reddened; worse than the other day. He had a left BKA. He has a 5.6 white count, 10.7 hemoglobin, 31.6 hematocrit, with platelets. A 137 sodium, potassium is 4.1, BUN 34, creatinine is 2.6. GFR is 24. Sugar is 124. Calcium 8.3, total bili is 0.5. AST is 21, ALT is 15, alk phos 79, albumin is 2.8. I will check his labs tomorrow. I hope he does well with his procedure with Dr. Sanju Willis. He is being seen by renal for his elevated BUN and creatinine, podiatry, orthopedics, and infectious disease. Will check his labs tomorrow. Continue with physical therapy. I encouraged him to take his medication. He is noncompliant at times. Eat well, and will see how he does with the angiogram. He is here for cellulitis of the right hand, right foot, renal insufficiency, diabetes, and he is fairly noncompliant. Kavon Patiño DO cc: [id number] TT: 08/21/2016 10:41:45 Confirmation # [id number] Dictation # [id number] jn [facility]
[2016-08-21] MEDS ORDERED: Heparin 25,000units in D5W 250 ML IV PRN (12:22)
[2016-08-21] MEDS ORDERED: Heparin25000 units/250ml 1/2NS 250 ML IV PRN (12:28)
--- NOTE | 2016-08-21 13:15 | CP.PCM.PN ---
Subjective - Date & Time of Evaluation Date of Evaluation: 08/21/16 Time of Evaluation: 07:20 - Subjective Subjective: Patient is for angiogram today of the lower extremities. Not in distress, afebrile overnight. Objective - Vital Signs/Intake and Output Vital Signs (last 24 hours): Temp Pulse Resp BP Pulse Ox 98 F 58 L 20 173/77 H 99 08/20/16 16:00 08/21/16 06:27 08/20/16 16:00 08/21/16 06:27 08/20/16 16:00 - Medications Medications: Current Medications Acetylcysteine (Acetylcysteine 20%) 6 ml PO BID [facility] Stop: 08/21/16 18:01 Last Admin: 08/21/16 09:42 Dose: Not Given Aripiprazole (Abilify) 5 mg PO HS [facility] Last Admin: 08/20/16 22:40 Dose: Not Given Aspirin (Ecotrin) 81 mg PO 0800 [facility] Last Admin: 08/21/16 09:39 Dose: Not Given Atorvastatin Calcium (Lipitor) 40 mg PO DIN [facility] Last Admin: 08/20/16 18:19 Dose: Not Given Clonidine HCl (Catapres) 0.1 mg PO BID [facility] Last Admin: 08/21/16 09:34 Dose: Not Given Escitalopram Oxalate (Lexapro) 5 mg PO QAM [facility] Last Admin: 08/21/16 09:39 Dose: Not Given Sodium Bicarbonate 75 meq/ (Sodium Chloride) 1,075 mls @ 75 mls/hr IV .[id number] [facility] Last Admin: 08/21/16 05:40 Dose: Not Given Daptomycin 350 mg/ Sodium (Chloride) 100 mls @ 200 mls/hr IV QOTHERDAY [facility] PRN Reason: Protocol Stop: 08/30/16 15:01 Last Admin: 08/20/16 18:18 Dose: 200 mls/hr Heparin Sodium/Sodium Chloride (Heparin 04117 Units/250ml 1/2 Normal Saline) 250 mls @ 10.434 mls/hr IV .[id number] PRN; Protocol; 18 UNITS/KG/HR PRN Reason: ADJUST RATE PER PROTOCOL Stop: 08/23/16 20:00 Insulin Detemir (Levemir) 12 unit SC [facility] Last Admin: 08/20/16 22:41 Dose: Not Given Morphine Sulfate (Morphine) 2 mg IVP Q4H PRN PRN Reason: Pain, moderate (4-7) Last Admin: 08/20/16 23:33 Dose: 2 mg Pantoprazole Sodium (Protonix Ec Tab) 40 mg PO 0600 [facility] Last Admin: 08/21/16 05:40 Dose: Not Given - Labs Labs: 08/20/16 07:45 08/20/16 07:45 - Constitutional Appears: Non-toxic, No Acute Distress - Head Exam Head Exam: NORMAL INSPECTION - Respiratory Exam Respiratory Exam: Decreased Breath Sounds - Cardiovascular Exam Cardiovascular Exam: +S1, +S2 - GI/Abdominal Exam GI & Abdominal Exam: Soft. absent: Tenderness - Extremities Exam Additional comments: right hand with some swelling in the distal portions, left foot with dry dressings in place
[2016-08-21] MEDS: Insulin Detemir 100 units/ml Vial (Levemir) SC SCH (21:36)
[2016-08-22] MEDS: Morphine 2 mg/ml ISec IVP PRN ×2 (04:35→20:14)
[2016-08-22] MEDS: Pantoprazole 40 mg EC Tab PO SCH (05:50)
[2016-08-22 06:27] LABS: HEMATOCRIT 29.1 % (42.0-52.0); MEAN CELL VOLUME 84.1 fL (80.0-105.0); MEAN CORPUSCULAR HEMOGLOBIN 28.6 pg (25.0-35.0); MEAN PLATELET VOLUME 9.7 fl (7.0-11.0); RED CELL DISTRIBUTION WIDTH 14.2 % (11.5-14.5); WHITE BLOOD COUNT 8.8 10^3/ul (4.5-11.0)
[2016-08-22 06:36] LABS: ALB/GLOB RATIO 0.8 (1.1-1.8); BILIRUBIN,TOTAL 0.6 mg/dL (0.2-1.3); CALCIUM 7.8 mg/dL (8.4-10.5); POTASSIUM 3.6 mmol/L (3.6-5.0)
--- NOTE | 2016-08-22 10:35 | PN ---
DATE: 08/22/2016 The patient is in bed in room 302. No fevers and chills. Had an uneventful night. He says his hand is improved. PHYSICAL EXAMINATION: VITAL SIGNS: Temperature is 98, blood pressure is 160/80, respiratory rate of 20. HEENT: Unremarkable. NECK: Supple. LUNGS: Have decreased breath sounds. HEART: Normal S1, S2. ABDOMEN: Soft, nontender. Examination of the hand is improved. LABORATORY DATA: Reveals a white count of 5.6, hemoglobin 9, creatinine is 2.5. Microbiology reveal s the patient's right foot had MRSA and one blood culture is also positive for MRSA and an EDINSON of 1 t o vancomycin. Review of the orders reveals the patient's daptomycin. ASSESSMENT AND PLAN: This is a 71-year-old male with a right hand cellulitis and the right third toe ulcer with methicillin resistant staphylococcus aureus osteomyelitis and methicillin resistant staph ylococcus aureus bacteremia, currently on day #7 of daptomycin every 48 hours, renally adjusted and n egative echo, however, we will need prolonged antibiotics for the osteomyelitis. Should have CBC, SM A-18, sed rate, C-reactive protein, CPK once weekly. Magdaleno Lopez MD cc: [phone] TT: 08/22/2016 10:34:36 Confirmation # [id number] Dictation # [id number] laura
--- NOTE | 2016-08-22 14:01 | PN ---
DATE: 08/22/2016 I see him resting comfortably in bed in the TCU. He is status post angiogram with Dr. Sanju Willis ye where I believe they opened up a vessel of his foot. He is having right hand redness and zari n, a little bit uncomfortable. He is on different antibiotics as per infectious disease. He is eati ng some and I believe next week they will take off the toe. MEDICATIONS: He is on Abilify, Catapres, daptomycin IV, Ecotrin, heparin IV, Levemir, Lexapro, Lipit or, morphine, Protonix, and IV sodium bicarb. PHYSICAL EXAMINATION: VITAL SIGNS: 98.4 temp, 82 pulse, 130/66 blood pressure, 20 respiratory rate, 97% O2 sat on room air . HEENT: His head is atraumatic, normocephalic. His throat is moist. NECK: Supple. HEART: Regular rate. LUNGS: Decreased breath sounds, but clear to auscultation. ABDOMEN: Soft. EXTREMITIES: He has a left BKA. Right hand and right foot are red and inflamed. He has MRSA osteom yelitis. They are planning to take off the toe next week. He is on daptomycin. We are checking his labs. Ho pefully, he will improve and he needs to be in the hospital. The patient with severe peripheral vasc ular disease and cellulitis. Kavon Patiño DO cc: [phone] TT: 08/22/2016 14:01:15 Confirmation # [id number] Dictation # [id number] tn
[2016-08-22] MEDS: Insulin Detemir 100 units/ml Vial (Levemir) SC SCH (21:29)
[2016-08-23] MEDS: Pantoprazole 40 mg EC Tab PO SCH (05:28)
--- NOTE | 2016-08-23 09:55 | PN ---
DATE: 08/23/2016 The patient is seen earlier this morning in room 302. He is awake and is alert, and he has had no fe vers. PHYSICAL EXAMINATION: VITAL SIGNS: Temperature is 98. Blood pressure is 150/70, respiratory rate of 20, heart rate of 82. HEENT: Unremarkable. NECK: Supple. LUNGS: Have decreased breath sounds. HEART: Normal S1, S2. ABDOMEN: Soft, nontender. LABORATORY EXAMINATION: Reveals a white count of 8.8, hemoglobin of 9, and platelets of 274, BUN of 29, creatinine of 2.5. Microbiology is noted. Dr. Kavon Patiño's note from yesterday is reviewed. ASSESSMENT AND PLAN: This is a 71-year-old male with right hand cellulitis and a right third toe ulc er with methicillin-resistant Staphylococcus aureus bacteremia and methicillin-resistant Staphylococc us aureus osteomyelitis, currently on day #8 of daptomycin q. 48 hours, with a negative echo. Will n eed prolonged antibiotics for osteomyelitis. Most likely, the patient is scheduled for the operating room for tomorrow. Would recommend CBC, SMA-18, sed rate, C-reactive protein, and CPK once weekly p ending the operating room findings, the pathology, and operating room culture results. Review of the orders confirms the patient to be on daptomycin. The patient's hand is somewhat improved, although still erythematous. Magdaleno Lopez MD cc: [phone] TT: 08/23/2016 09:54:22 Confirmation # [id number] Dictation # [id number] jn
[2016-08-23] MEDS: Morphine 2 mg/ml ISec IVP PRN ×2 (09:57→23:45)
--- NOTE | 2016-08-23 11:31 | PN ---
DATE: 08/23/2016 I saw the patient in the transitional care unit. He is fairly uncomfortable, having some joint pains . He did refuse his pain meds earlier, and now he wants it. We will get it for him. MEDICATIONS: He is currently on Abilify, Catapres, daptomycin IV, aspirin, heparin IV, Levemir, [place] pro, Lipitor, morphine for pain, Protonix, and sodium bicarb. He is trying to eat. His skin actually is starting to look better with the cellulitis. PHYSICAL EXAMINATION: VITAL SIGNS: Temp 98.4, 76 pulse, 157/78 blood pressure, 20 respiratory rate, 97% O2 sat on 2 liters nasal cannula. HEENT: Head is atraumatic, normocephalic. HEART: Regular rate. LUNGS: Clear to auscultation. ABDOMEN: Soft. EXTREMITIES: His right foot and right hand are starting to improve, the first time he is here, turni ng a corner to a less aggressive red, left BKA. LABORATORY DATA: He has an 8.8 white count, 9.9 hemoglobin, 29.1 hematocrit with 274 platelets. Sod ium 136, potassium 3.6. BUN 29, creatinine 2.5. GFR is 25. Sugar is 149. Total bili is 0.6. AST is 23. ALT is 8. Alk phos is 75. He is not always taking the medications, and he is not always letting us do his blood draws. He is being seen by infectious disease and podiatry is supposed to be seeing him too for possible amp utation on Wednesday or Wednesday of the toe on the right foot. They also did an angiogram, and I think o pened up the vessel to hopefully save the leg. He has right hand, right foot third toe ulcer and monica lulitis, on daptomycin. He has been hydrated, renal failure, chronic kidney injury. He has had pneu monias, high potassiums, hypertension, diabetes, osteomyelitis - his left BKA for osteomyelitis. He is also quite noncompliant. We will continue with aggressive treatment and care, IV antibiotics, pain meds. Kavon Patiño DO cc: [id number] TT: 08/23/2016 11:31:06 Confirmation # [id number] Dictation # [id number] jn
[2016-08-23] MEDS: Insulin Detemir 100 units/ml Vial (Levemir) SC SCH (21:13)
[2016-08-24] MEDS: Morphine 2 mg/ml ISec IVP PRN ×2 (03:42→19:54)
[2016-08-24] MEDS: Pantoprazole 40 mg EC Tab PO SCH (05:35)
[2016-08-24] MEDS ORDERED: Sodium Chloride 0.9% 1,000 ML IV SCH (08:00)
--- NOTE | 2016-08-24 08:27 | PN ---
DATE: 08/22/2016 This is a 71-year-old male seen at bedside for continued evaluation and management of right 3rd digit osteomyelitis. The patient is scheduled for amputation on Wednesday. VITAL SIGNS: Reveal temperature of 98.3, pulse rate of 72, blood pressure of 166/83, respiratory rat e of 20. LABORATORY FINDINGS: Reveal a white count of 8.8, hemoglobin 9.9, hematocrit of 29.1, platelet count of 274. OBJECTIVE: There is noted to be left lower limb amputation. Right foot presents with gangrenous rig ht 3rd toe with exposed proximal phalangeal bone. There is noted to be malodor. The entire forefoot is edematous and erythematous. ASSESSMENT: Osteomyelitis and gangrene of the right 3rd digit. PLAN: The patient's wound was cleansed with normal sterile saline. Will apply Betadine solution and a dry sterile dressing. We will keep patient n.p.o. Wednesday night, as he is scheduled for amputation on Wednesday by Dr. Whitley. Wu Hernandez DPM cc: [phone] TT: 08/22/2016 12:49:28 Confirmation # [id number] Dictation # [id number] laura
--- NOTE | 2016-08-24 09:01 | PCM.SURG1 ---
Surgeon's Initial Post Op Note - Surgeon's Notes Surgeon: Dr. Whitley [employer] Receiving Clerk: Dr. Bonner PGY-1 Type of Anesthesia: IV Sedation, Local Anesthesia Administered By: Dr. Remy Pre-Operative Diagnosis: right foot 3rd digit osteomyelitis Operative Findings: see dictation. 9cc 2% lidocaine plain. 3-0 vicryl, 3-0 nylon Post-Operative Diagnosis: same as preop Operation Performed: right foot 3rd digit amputation with metatarsal head resection Specimen/Specimens Removed: bone and soft tissue Estimated Blood Loss: EBL {In ML}: 20 Blood Products Given: N/A Drains Used: No Drains Post-Op Condition: Good Date of Surgery/Procedure: 08/24/16 Time of Surgery/Procedure: 08:00
[2016-08-24] MEDS ORDERED: Oxycodone/Acetaminophen 5/325 mg Tab PO PRN (09:02)
--- NOTE | 2016-08-24 10:06 | RAD ---
PROCEDURE: Right Foot Radiographs. HISTORY: s/p right foot surgery COMPARISON: 08/17/2016 FINDINGS: BONES: Status post interval amputation distal aspect 3rd metatarsal diaphysis. Prior amputation of 1st and 2nd digits at base of proximal phalanx again noted. No acute fracture. Flexion deformity of 4th and 5th digits. JOINTS: As above SOFT TISSUES: Normal. OTHER FINDINGS: None. IMPRESSION: Amputation 3rd digit at the level of the distal 3rd metatarsal.
--- NOTE | 2016-08-24 11:34 | PN ---
DATE: 08/24/2016 I saw the patient status post surgery to remove his right toe that had an infection. Problem is now his right knee hurts, his right hand is worse and his right forearm is a little bit more swollen. He is in pain. He is getting his pain medications now. MEDICATIONS: He is on Abilify, Catapres, daptomycin IV, Ecotrin, Levemir, Lexapro, Lipitor, morphine, Percocet, Protonix, sodium bicarbonate, and Tylenol. PHYSICAL EXAMINATION: VITAL SIGNS: 97.9 temp, 86 pulse, 147/70 blood pressure, 14 respiratory rate, 95% O2 sat on nasal cannula. HEENT: Head is atraumatic, normocephalic. HEART: Regular rate. LUNGS: Decreased breath sounds but clear. ABDOMEN: Soft. EXTREMITIES: His right hand is worsened, swollen, could be an abscess in the back of the hand. It is less aggressive but it is definitely red and swollen, looks worse. Might need to be opened up. I called in Dr. Douglas, the hand surgeon. Also, his right knee hurts a tad. He just had surgery. That could be the reason for that. LABORATORY DATA: He has an 8.8 white count, 9.9 hemoglobin, 29.1 hematocrit with 274 platelets. Sodium 136, potassium 3.6, BUN 29, creatinine 2.5, GFR is 25, sugar is 149, calcium 7.8. Total bili is 0.6, AST is 23, ALT is 8, alk phosphatase 75, total protein 6. He is being seen by surgery, podiatry and infectious disease. He had an amputation of the third digit of the right foot which was osteomyelitis. I called on hand surgeon specialist and continue with IV antibiotics for the cellulitis. Will check his labs tomorrow. I encouraged him to take the medications. Will keep an aggressive treatment plan for this patient who is status post osteomyelitis of the right third toe. Kavon Patiño DO cc: [phone] TT: 08/24/2016 11:33:13 Confirmation # [id number] Dictation # [id number] joel HUBER
--- NOTE | 2016-08-24 14:24 | PN ---
DATE: 08/24/2016 SUBJECTIVE: The patient was seen in the transitional care unit. He was lying in bed at a 30 degree angle. He had no dyspnea and actually appeared to be quite comfortable. OBJECTIVE: VITAL SIGNS: Blood pressure is 160/75, heart rate is 73, oral temperature 97.4, respirations 14, oxy gen saturation was documented as 86%. HEENT: The patient was normocephalic and atraumatic. There was no sinus tenderness. Conjunctivae w ere neither pale nor icteric. CHEST: Lungs rodriguez are auscultated anteriorly and were clear on my exam without any rales, rhonchi or wheezing. CARDIAC: Had a regular rate and rhythm without any rubs. ABDOMEN: Soft, mildly distended, but nontender, without any rebounding, guarding or rigidity. EXTREMITIES: Had left [id number]-uta-kzby amputation. His right foot was wrapped up. There was erythema on the dorsal aspect of his right hand. VASCULAR: Had no bruits. SKIN: As stated above. There was no suprapubic tenderness. LABORATORY STUDIES: As follows: Yesterday white count was 8.8 with an H and H of 9.9/29.1 and a fahad telet count of 274,000. Sodium is 136, potassium 3.6, chloride is 102, bicarbonate 22, BUN/creatinin e is 29/2.5, glucose 149. Calcium was 7.8, but corrects to 8.8. 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 Hospitalization was complicated by acute kidney injury in the setting of relative hypotension. Of note, he had very minimal oral intake prior to admission and had been ta gonsalo an NSAID prior to admission as well during this hospitalization. The patient is also status pos t amputation of the third digit of his right foot with metatarsal head resection as well for osteomye litis and appears to be doing well. His cellulitis is also improved clinically. 1. Infectious disease followup is appreciated and the patient remains on daptomycin. It is anticipa sal that he will need a prolonged course of antibiotics. Of note, blood cultures from 08/15 did grow MRSA and wound cultures from his right foot did grow MRSA as well. Echocardiogram was negative for vegetations. 2. The patient had foot x-rays done this morning, which did not reveal anything unexpected. 3. The patient has mild normocytic anemia secondary to his chronic kidney disease as well as recent surgery. 4. Although calcium is low, it corrects within normal limits after adjusting for his albumin. 5. Given the fact that the patient recently recovered from a bout of acute kidney injury I would not aggressively attempt to decrease his blood pressure at this time. Review of systems, past medical history, social history and family history were all reviewed and ther e were no new changes. Suraj Martin MD cc: [phone] TT: 08/24/2016 14:07:49 Confirmation # [id number] Dictation # [id number] joel
--- NOTE | 2016-08-24 15:13 | CP.PCM.PN ---
Subjective - Date & Time of Evaluation Date of Evaluation: 08/24/16 Time of Evaluation: 11:00 - Subjective Subjective: Seen after foot surgery; still with swelling of the right hand, no fevers overnight. Objective - Vital Signs/Intake and Output Vital Signs (last 24 hours): Temp Pulse Resp BP Pulse Ox 97.9 F 73 14 160/75 H 86 L 08/23/16 16:00 08/24/16 07:05 08/23/16 16:00 08/24/16 07:05 08/23/16 16:00 - Medications Medications: Current Medications Aripiprazole (Abilify) 5 mg PO HS [facility] PRN Reason: Protocol Aspirin (Ecotrin) 81 mg PO 0800 [facility] Last Admin: 08/23/16 08:39 Dose: Not Given Atorvastatin Calcium (Lipitor) 40 mg PO DIN [facility] PRN Reason: Protocol Clonidine HCl (Catapres) 0.1 mg PO BID [facility] PRN Reason: Protocol Last Admin: 08/24/16 07:05 Dose: 0.1 mg Escitalopram Oxalate (Lexapro) 5 mg PO QAM [facility] PRN Reason: Protocol Sodium Bicarbonate 75 meq/ (Sodium Chloride) 1,075 mls @ 75 mls/hr IV .[id number] [facility] Last Admin: 08/24/16 05:38 Dose: 75 mls/hr Daptomycin 350 mg/ Sodium (Chloride) 100 mls @ 200 mls/hr IV QOTHERDAY [facility] PRN Reason: Protocol Stop: 08/30/16 15:01 Last Admin: 08/22/16 12:57 Dose: 200 mls/hr Sodium Chloride (Sodium Chloride 0.9%) 1,000 mls @ 75 mls/hr IV .[id number] [facility] Stop: 08/24/16 10:01 Insulin Detemir (Levemir) 12 unit SC HS [facility] PRN Reason: Protocol Morphine Sulfate (Morphine) 2 mg IVP Q4H PRN; Protocol PRN Reason: Pain, moderate (4-7) Pantoprazole Sodium (Protonix Ec Tab) 40 mg PO 0600 [facility] PRN Reason: Protocol - Labs Labs: 08/22/16 06:15 08/22/16 06:15 APTT 69.3 Seconds (23.7-30.8) H 08/22/16 06:15 - Constitutional Appears: Non-toxic, No Acute Distress - Head Exam Head Exam: NORMAL INSPECTION - ENT Exam ENT Exam: Mucous Membranes Moist - Neck Exam Neck Exam: absent: Lymphadenopathy, Meningismus - Respiratory Exam Respiratory Exam: Decreased Breath Sounds - Cardiovascular Exam Cardiovascular Exam: +S1, +S2 - GI/Abdominal Exam GI & Abdominal Exam: Soft. absent: Tenderness - Extremities Exam Additional comments: right hand still with erythema and swelling; right foot with dressings in place Assessment and Plan - Assessment and Plan (Free Text) Assessment: Assessment right hand cellulitis and right 3rd toe ulcer with probable osteomyelitis with associated methicillin-resistant Staph aureus bacteremia; still with swollen upper extremity; S/P right toe amputation today with metatarsal head amputation as well history of left sided healthcare-associated pneumonia history of left stump infection with clinical osteomyelitis S/P left BKA with associated MRSA bacteremia history of left foot infection S/P transmetatarsal amputation (12/25/2015) with viable margins in a patient with a history of left foot gangrene and abscess S/ P incision and drainage of an abscess and first ray resection with osteomyelitis with Klebsiella; this is also associated with Klebsiella bacteremia diabetes mellitus alcohol abuse chronic renal failure Plan continue Daptomycin (day 9 total antibiotics) every 48 hours, renally-adjusted; repeat blood cultures are negative; 2D echo does not show vegetations; will add Merrem and follow up Ortho / hand surgeon evaluation of the right hand Will continue to monitor clinically
[2016-08-24] MEDS: Meropenem 500 MG in Sodium Chloride 0.9% 100 ML IVPB SCH ×2 (15:26→22:05)
[2016-08-24] MEDS: Insulin Detemir 100 units/ml Vial (Levemir) SC SCH (22:04)
[2016-08-25] MEDS: Morphine 2 mg/ml ISec IVP PRN (05:10)
[2016-08-25] MEDS: Pantoprazole 40 mg EC Tab PO SCH (05:54)
[2016-08-25 05:57] VITALS: RESP 18
--- NOTE | 2016-08-25 10:31 | PN ---
DATE: 08/25/2016 I saw him resting in bed. His right arm underarm is very swollen. I am not sure why, and he had a v enous Doppler and arterial Doppler to make sure there are no clots. He has occasional pain, but does not want any pain medications at this time, and he slept fairly well. PHYSICAL EXAMINATION: VITAL SIGNS: Temp 98, 74 pulse, 168/78 blood pressure, 18 respiratory rate, 91% O2 sat on 2 liters n lewis cannula. HEAD: Atraumatic, normocephalic. HEART: Regular rate. LUNGS: Decreased breath sounds. ABDOMEN: Soft. EXTREMITIES: Left BKA. Right third toe amputated. Right arm is now swollen. We will check some Do pplers - venous and arterial. MEDICATIONS: He is currently on Abilify, Catapres, daptomycin IV, Ecotrin, Levemir, Lexapro, Lipitor , Lovenox, Merrem IV, morphine, Percocet, Protonix IV, sodium bicarb, and Tylenol. LABORATORY: He has an 8.8 white count, 9.9 hemoglobin, 29.1 hematocrit with 274 platelets. Sodium 1 36, potassium 3.6. BUN 29, creatinine 2.5. GFR is 25. Sugar is 149. Calcium is 7.8. Total bili i s 0.6. AST is 23. ALT is 8. Alk phos 75. Total protein is 6. He is being seen by infectious disease, renal, surgery. He has right hand cellulitis, right third to e ulcer, osteomyelitis, status post amputation. He has right arm swelling. He is on antibiotics. I called in a hand surgeon to look at the right hand, although today is the first day I thought it loo ked good. I am upset about the right arm though. It is swollen. I ordered venous and arterial Dopp lers. We will check his labs tomorrow. Continue with physical therapy. The patient has multiple issues. Kavon Patiño DO cc: [id number] TT: 08/25/2016 10:31:00 Confirmation # [id number] Dictation # [id number] laura
[2016-08-25] MEDS: Lidocaine 5% Patch TD SCH (12:40)
[2016-08-25] MEDS: Meropenem 500 MG in Sodium Chloride 0.9% 100 ML IVPB SCH ×2 (12:42→21:57)
--- NOTE | 2016-08-25 13:51 | CP.PCM.PN ---
<Kymberly Bonner - Last Filed: 08/25/16 13:47> Subjective - Date & Time of Evaluation Date of Evaluation: 08/25/16 Time of Evaluation: 13:47 - Subjective Subjective: 71 y/o male seen at bedside with attending Dr. Hernandez 1 day s/p right foot 3rd digit amputation with metatarsal head resection. Patients dressing remains c/d/ i with minimal strikethrough. Patient denies any acute events overnight. He denies n/f/v/d/c/sob. Patient states that his right arm and hand have been hurting. Objective - Vital Signs/Intake and Output Vital Signs (last 24 hours): Temp Pulse Resp BP Pulse Ox 98 F 74 18 168/78 H 91 L 08/25/16 05:56 08/25/16 05:56 08/25/16 05:56 08/25/16 05:56 08/25/16 05:56 - Medications Medications: Current Medications Acetaminophen (Tylenol 325mg Tab) 650 mg PO Q4H PRN PRN Reason: Pain, Mild (1-3) Aripiprazole (Abilify) 5 mg PO HS [facility] PRN Reason: Protocol Last Admin: 08/24/16 22:04 Dose: Not Given Aspirin (Ecotrin) 81 mg PO 0800 [facility] Last Admin: 08/25/16 08:06 Dose: Not Given Atorvastatin Calcium (Lipitor) 40 mg PO DIN [facility] PRN Reason: Protocol Last Admin: 08/24/16 17:22 Dose: Not Given Clonidine HCl (Catapres) 0.1 mg PO BID [facility] PRN Reason: Protocol Last Admin: 08/25/16 10:58 Dose: Not Given Enoxaparin Sodium (Lovenox) 40 mg SC DAILY [facility] PRN Reason: Protocol Escitalopram Oxalate (Lexapro) 5 mg PO QAM [facility] PRN Reason: Protocol Last Admin: 08/25/16 12:39 Dose: Not Given Sodium Bicarbonate 75 meq/ (Sodium Chloride) 1,075 mls @ 75 mls/hr IV .[id number] [facility] Last Admin: 08/25/16 08:05 Dose: Not Given Daptomycin 350 mg/ Sodium (Chloride) 100 mls @ 200 mls/hr IV QOTHERDAY [facility] PRN Reason: Protocol Stop: 08/30/16 15:01 Last Admin: 08/24/16 11:15 Dose: 200 mls/hr Meropenem 500 mg/ Sodium (Chloride) 100 mls @ 100 mls/hr IVPB Q12 [facility] PRN Reason: Protocol Stop: 08/31/16 15:16 Last Admin: 08/25/16 12:42 Dose: 100 mls/hr Insulin Detemir (Levemir) 12 unit SC HS [facility] PRN Reason: Protocol Last Admin: 08/24/16 22:04 Dose: Not Given Lidocaine (Lidoderm) 1 ea TD DAILY [facility] Last Admin: 08/25/16 12:40 Dose: 1 ea Morphine Sulfate (Morphine) 2 mg IVP Q4H PRN; Protocol PRN Reason: Pain, moderate (4-7) Last Admin: 08/25/16 05:10 Dose: 2 mg Oxycodone/Acetaminophen (Percocet 5/325 Mg Tab) 2 tab PO Q4H PRN PRN Reason: Pain, severe (8-10) Stop: 08/27/16 09:03 Pantoprazole Sodium (Protonix Ec Tab) 40 mg PO 0600 [facility] PRN Reason: Protocol Last Admin: 08/25/16 05:54 Dose: Not Given - Labs Labs: 08/22/16 06:15 08/22/16 06:15 APTT 69.3 Seconds (23.7-30.8) H 08/22/16 06:15 - Constitutional Appears: Well, Non-toxic, No Acute Distress - Extremities Exam Additional comments: below knee amputation to left leg vasc: nonpalpable pedal pulses, CFT < 4 sec to all digits, TG wnl neuro: grossly diminished derm: surgical site sutures intact, no dehiscence, no drainage, well coapted, jno acute clinical signs of infection, no active bleeding, no malodor - Neurological Exam Neurological Exam: Alert, Awake, Oriented x3 - Psychiatric Exam Psychiatric exam: Normal Affect, Normal Mood Assessment and Plan - Assessment and Plan (Free Text) Assessment: 71 y/o male seen at bedside in TCU 1 day s/p right foot 3rd digit amputation with partial metatarsal resection Plan: patient evaluated and seen at bedside with attending Dr. Hernandez labs and vitals reviewed continue IV abx applied adaptic, 4x4 gauze, ABD, kerlix, ZENON to right foot keep dressing c/d/i continue with offloading boot while in bed podiatry will continue to monitor while patient remains in house <Wu Hernandez - Last Filed: 08/28/16 11:00> Objective - Vital Signs/Intake and Output Vital Signs (last 24 hours): Temp Pulse Resp BP Pulse Ox 98.3 F 80 18 188/87 H 88 L 08/27/16 10:00 08/27/16 17:35 08/27/16 10:00 08/27/16 17:35 08/27/16 10:00 - Medications Medications: Current Medications Acetaminophen (Tylenol 325mg Tab) 650 mg PO Q4H PRN PRN Reason: Pain, Mild (1-3) Last Admin: 08/28/16 08:45 Dose: 650 mg Aripiprazole (Abilify) 5 mg PO HS [facility] PRN Reason: Protocol Last Admin: 08/27/16 21:35 Dose: Not Given Aspirin (Ecotrin) 81 mg PO 0800 [facility] Last Admin: 08/28/16 08:08 Dose: 81 mg Atorvastatin Calcium (Lipitor) 40 mg PO DIN [facility] PRN Reason: Protocol Last Admin: 08/27/16 17:35 Dose: Not Given Clonidine HCl (Catapres) 0.1 mg PO BID [facility] PRN Reason: Protocol Last Admin: 08/28/16 09:21 Dose: Not Given Enoxaparin Sodium (Lovenox) 40 mg SC 0600 [facility] PRN Reason: Protocol Last Admin: 08/28/16 06:16 Dose: Not Given Sodium Bicarbonate 75 meq/ (Sodium Chloride) 1,075 mls @ 75 mls/hr IV .[id number] [facility] Last Admin: 08/27/16 20:01 Dose: Not Given Daptomycin 350 mg/ Sodium (Chloride) 100 mls @ 200 mls/hr IV QOTHERDAY [facility] PRN Reason: Protocol Stop: 08/30/16 15:01 Last Admin: 08/28/16 09:20 Dose: 200 mls/hr Meropenem 500 mg/ Sodium (Chloride) 100 mls @ 100 mls/hr IVPB Q12 [facility] PRN Reason: Protocol Stop: 08/31/16 15:16 Last Admin: 08/28/16 09:21 Dose: 100 mls/hr Insulin Detemir (Levemir) 12 unit SC HS [facility] PRN Reason: Protocol Last Admin: 08/27/16 21:35 Dose: Not Given Lidocaine (Lidoderm) 1 ea TD DAILY [facility] Last Admin: 08/28/16 09:21 Dose: Not Given Linezolid (Zyvox) 600 mg PO BID [facility] PRN Reason: Protocol Last Admin: 08/28/16 09:25 Dose: Not Given Pantoprazole Sodium (Protonix Ec Tab) 40 mg PO 0600 [facility] PRN Reason: Protocol Last Admin: 08/28/16 06:16 Dose: Not Given - Labs Labs: 08/22/16 06:15 08/22/16 06:15 APTT 69.3 Seconds (23.7-30.8) H 08/22/16 06:15 Attending/Attestation - Attestation I have personally seen and examined this patient.: Yes I have fully participated in the care of the patient.: Yes I have reviewed all pertinent clinical information, including history, physical exam and plan: Yes
--- NOTE | 2016-08-25 15:34 | CP.PCM.PN ---
Subjective - Date & Time of Evaluation Date of Evaluation: 08/25/16 Time of Evaluation: 15:29 - Subjective Subjective: Pt still complaining of right hand pain. Pt also c/o R elbow pain. Afebrile RUE: edema noted around lateral aspect of proximal forearm. Tolerating elbow ROM without significant pain. No erythema. No crepitus aprreciated. hand with erythema small pustule on dorsum of distal aspect of 2nd metacarpal. Pustule deroofed and 2-3 drops of purulent material expressed no tenderness over flexor tendon however swelling of finger noted Reviewed MRI: no gross fluid collection appreciated ; more consistent with cellulitis Dressing applied. Will monitor for now. May require I&d Will discuss with medicine possible different antibiotic regimen Objective - Vital Signs/Intake and Output Vital Signs (last 24 hours): Temp Pulse Resp BP Pulse Ox 98 F 74 18 168/78 H 91 L 08/25/16 05:56 08/25/16 05:56 08/25/16 05:56 08/25/16 05:56 08/25/16 05:56 - Medications Medications: Current Medications Acetaminophen (Tylenol 325mg Tab) 650 mg PO Q4H PRN PRN Reason: Pain, Mild (1-3) Aripiprazole (Abilify) 5 mg PO HS [facility] PRN Reason: Protocol Last Admin: 08/24/16 22:04 Dose: Not Given Aspirin (Ecotrin) 81 mg PO 0800 [facility] Last Admin: 08/25/16 08:06 Dose: Not Given Atorvastatin Calcium (Lipitor) 40 mg PO DIN [facility] PRN Reason: Protocol Last Admin: 08/24/16 17:22 Dose: Not Given Clonidine HCl (Catapres) 0.1 mg PO BID [facility] PRN Reason: Protocol Last Admin: 08/25/16 10:58 Dose: Not Given Enoxaparin Sodium (Lovenox) 40 mg SC DAILY [facility] PRN Reason: Protocol Escitalopram Oxalate (Lexapro) 5 mg PO QAM [facility] PRN Reason: Protocol Last Admin: 08/25/16 12:39 Dose: Not Given Sodium Bicarbonate 75 meq/ (Sodium Chloride) 1,075 mls @ 75 mls/hr IV .[id number] [facility] Last Admin: 08/25/16 08:05 Dose: Not Given Daptomycin 350 mg/ Sodium (Chloride) 100 mls @ 200 mls/hr IV QOTHERDAY [facility] PRN Reason: Protocol Stop: 08/30/16 15:01 Last Admin: 08/24/16 11:15 Dose: 200 mls/hr Meropenem 500 mg/ Sodium (Chloride) 100 mls @ 100 mls/hr IVPB Q12 [facility] PRN Reason: Protocol Stop: 08/31/16 15:16 Last Admin: 08/25/16 12:42 Dose: 100 mls/hr Insulin Detemir (Levemir) 12 unit SC HS [facility] PRN Reason: Protocol Last Admin: 08/24/16 22:04 Dose: Not Given Lidocaine (Lidoderm) 1 ea TD DAILY [facility] Last Admin: 08/25/16 12:40 Dose: 1 ea Morphine Sulfate (Morphine) 2 mg IVP Q4H PRN; Protocol PRN Reason: Pain, moderate (4-7) Last Admin: 08/25/16 05:10 Dose: 2 mg Oxycodone/Acetaminophen (Percocet 5/325 Mg Tab) 2 tab PO Q4H PRN PRN Reason: Pain, severe (8-10) Stop: 08/27/16 09:03 Pantoprazole Sodium (Protonix Ec Tab) 40 mg PO 0600 [facility] PRN Reason: Protocol Last Admin: 08/25/16 05:54 Dose: Not Given - Labs Labs: 08/22/16 06:15 08/22/16 06:15 APTT 69.3 Seconds (23.7-30.8) H 08/22/16 06:15
--- NOTE | 2016-08-25 16:46 | US ---
PROCEDURE: Upper extremity JOANNA/PVR HISTORY: Peripheral vascular disease. At arm pain. Evaluate for ischemia P PHYSICIAN(S): Sanju Willis MD. FINDINGS: The resting WBI's are normal: right, 1.11and left, 1.15. The upper arm, forearm, and wrist PVR waveforms are normal and symmetric. No significant segmental gradients are demonstrated. IMPRESSION: 1. Normal WBI and PVR examination at rest.
--- NOTE | 2016-08-25 16:47 | US ---
PROCEDURE: Right upper extremity venous US CLINICAL HISTORY: Arm pain and swelling Evaluate for deep venous thrombosis. PHYSICIAN(S): Sanju Willis M.D FINDINGS: The visualized rightinternal jugular vein is sonographically normal and compressible. No evidence of obstruction or thrombus is seen. The visualized segments of the right subclavian vein are patent with normal waveforms. No sonographic evidence of obstruction or thrombosis is seen. The visualized deep venous system of the proximal right upper extremity is sonographically normal and compressible. IMPRESSION: 1. No sonographic evidence for deep venous thrombosis in the visualized segments of the right upper extremity.
--- NOTE | 2016-08-25 17:26 | CP.PCM.PN ---
Subjective - Date & Time of Evaluation Date of Evaluation: 08/25/16 Time of Evaluation: 09:40 - Subjective Subjective: Comfortable in bed, not in distress, but still having pain in the right hand. No fevers overnight. Objective - Vital Signs/Intake and Output Vital Signs (last 24 hours): Temp Pulse Resp BP Pulse Ox 98 F 74 18 168/78 H 91 L 08/25/16 05:56 08/25/16 05:56 08/25/16 05:56 08/25/16 05:56 08/25/16 05:56 - Medications Medications: Current Medications Acetaminophen (Tylenol 325mg Tab) 650 mg PO Q4H PRN PRN Reason: Pain, Mild (1-3) Aripiprazole (Abilify) 5 mg PO HS [facility] PRN Reason: Protocol Last Admin: 08/24/16 22:04 Dose: Not Given Aspirin (Ecotrin) 81 mg PO 0800 [facility] Last Admin: 08/25/16 08:06 Dose: Not Given Atorvastatin Calcium (Lipitor) 40 mg PO DIN [facility] PRN Reason: Protocol Last Admin: 08/24/16 17:22 Dose: Not Given Clonidine HCl (Catapres) 0.1 mg PO BID [facility] PRN Reason: Protocol Last Admin: 08/25/16 10:58 Dose: Not Given Enoxaparin Sodium (Lovenox) 40 mg SC DAILY [facility] PRN Reason: Protocol Escitalopram Oxalate (Lexapro) 5 mg PO QAM [facility] PRN Reason: Protocol Last Admin: 08/25/16 12:39 Dose: Not Given Sodium Bicarbonate 75 meq/ (Sodium Chloride) 1,075 mls @ 75 mls/hr IV .[id number] [facility] Last Admin: 08/25/16 08:05 Dose: Not Given Daptomycin 350 mg/ Sodium (Chloride) 100 mls @ 200 mls/hr IV QOTHERDAY [facility] PRN Reason: Protocol Stop: 08/30/16 15:01 Last Admin: 08/24/16 11:15 Dose: 200 mls/hr Meropenem 500 mg/ Sodium (Chloride) 100 mls @ 100 mls/hr IVPB Q12 [facility] PRN Reason: Protocol Stop: 08/31/16 15:16 Last Admin: 08/25/16 12:42 Dose: 100 mls/hr Insulin Detemir (Levemir) 12 unit SC HS [facility] PRN Reason: Protocol Last Admin: 08/24/16 22:04 Dose: Not Given Lidocaine (Lidoderm) 1 ea TD DAILY [facility] Last Admin: 08/25/16 12:40 Dose: 1 ea Morphine Sulfate (Morphine) 2 mg IVP Q4H PRN; Protocol PRN Reason: Pain, moderate (4-7) Last Admin: 08/25/16 05:10 Dose: 2 mg Oxycodone/Acetaminophen (Percocet 5/325 Mg Tab) 2 tab PO Q4H PRN PRN Reason: Pain, severe (8-10) Stop: 08/27/16 09:03 Pantoprazole Sodium (Protonix Ec Tab) 40 mg PO 0600 [facility] PRN Reason: Protocol Last Admin: 08/25/16 05:54 Dose: Not Given - Labs Labs: 08/22/16 06:15 08/22/16 06:15 APTT 69.3 Seconds (23.7-30.8) H 08/22/16 06:15 - Constitutional Appears: Non-toxic, No Acute Distress - Head Exam Head Exam: NORMAL INSPECTION - ENT Exam ENT Exam: Mucous Membranes Moist - Neck Exam Neck Exam: absent: Lymphadenopathy, Meningismus - Respiratory Exam Respiratory Exam: Decreased Breath Sounds - Cardiovascular Exam Cardiovascular Exam: +S1, +S2 - GI/Abdominal Exam GI & Abdominal Exam: Soft. absent: Tenderness - Extremities Exam Additional comments: right hand still with swelling Assessment and Plan - Assessment and Plan (Free Text) Plan: Assessment right hand cellulitis and right 3rd toe ulcer with probable osteomyelitis with associated methicillin-resistant Staph aureus bacteremia; still with swollen upper extremity; S/P right toe amputation with metatarsal head amputation as well POD#1; S/P expression of some pus from the right hand history of left sided healthcare-associated pneumonia history of left stump infection with clinical osteomyelitis S/P left BKA with associated MRSA bacteremia history of left foot infection S/P transmetatarsal amputation (12/25/2015) with viable margins in a patient with a history of left foot gangrene and abscess S/ P incision and drainage of an abscess and first ray resection with osteomyelitis with Klebsiella; this is also associated with Klebsiella bacteremia diabetes mellitus alcohol abuse chronic renal failure Plan continue Daptomycin (day 10 total antibiotics) every 48 hours, renally-adjusted and Merrem day 2; repeat blood cultures are negative; 2D echo does not show vegetations reviewed Ortho / hand surgeon evaluation - MRI shows cellulitis but no specific fluid collection Will continue to monitor clinically
[2016-08-25] MEDS: Insulin Detemir 100 units/ml Vial (Levemir) SC SCH (21:56)
--- NOTE | 2016-08-25 22:38 | CP.PCM.PN ---
Objective - Vital Signs/Intake and Output Vital Signs (last 24 hours): Temp Pulse Resp BP Pulse Ox 98 F 74 18 168/78 H 91 L 08/25/16 05:56 08/25/16 05:56 08/25/16 05:56 08/25/16 05:56 08/25/16 05:56 - Medications Medications: Current Medications Acetaminophen (Tylenol 325mg Tab) 650 mg PO Q4H PRN PRN Reason: Pain, Mild (1-3) Aripiprazole (Abilify) 5 mg PO HS [facility] PRN Reason: Protocol Last Admin: 08/25/16 21:56 Dose: Not Given Aspirin (Ecotrin) 81 mg PO 0800 [facility] Last Admin: 08/25/16 08:06 Dose: Not Given Atorvastatin Calcium (Lipitor) 40 mg PO DIN [facility] PRN Reason: Protocol Last Admin: 08/25/16 18:49 Dose: Not Given Clonidine HCl (Catapres) 0.1 mg PO BID [facility] PRN Reason: Protocol Last Admin: 08/25/16 18:49 Dose: Not Given Enoxaparin Sodium (Lovenox) 40 mg SC DAILY [facility] PRN Reason: Protocol Escitalopram Oxalate (Lexapro) 5 mg PO QAM [facility] PRN Reason: Protocol Last Admin: 08/25/16 12:39 Dose: Not Given Sodium Bicarbonate 75 meq/ (Sodium Chloride) 1,075 mls @ 75 mls/hr IV .[id number] [facility] Last Admin: 08/25/16 08:05 Dose: Not Given Daptomycin 350 mg/ Sodium (Chloride) 100 mls @ 200 mls/hr IV QOTHERDAY [facility] PRN Reason: Protocol Stop: 08/30/16 15:01 Last Admin: 08/24/16 11:15 Dose: 200 mls/hr Meropenem 500 mg/ Sodium (Chloride) 100 mls @ 100 mls/hr IVPB Q12 [facility] PRN Reason: Protocol Stop: 08/31/16 15:16 Last Admin: 08/25/16 21:57 Dose: Not Given Insulin Detemir (Levemir) 12 unit SC HS [facility] PRN Reason: Protocol Last Admin: 08/25/16 21:56 Dose: Not Given Lidocaine (Lidoderm) 1 ea TD DAILY [facility] Last Admin: 08/25/16 12:40 Dose: 1 ea Morphine Sulfate (Morphine) 2 mg IVP Q4H PRN; Protocol PRN Reason: Pain, moderate (4-7) Last Admin: 08/25/16 05:10 Dose: 2 mg Oxycodone/Acetaminophen (Percocet 5/325 Mg Tab) 2 tab PO Q4H PRN PRN Reason: Pain, severe (8-10) Stop: 08/27/16 09:03 Pantoprazole Sodium (Protonix Ec Tab) 40 mg PO 0600 [facility] PRN Reason: Protocol Last Admin: 08/25/16 05:54 Dose: Not Given - Labs Labs: 08/22/16 06:15 08/22/16 06:15 APTT 69.3 Seconds (23.7-30.8) H 08/22/16 06:15
[2016-08-26] MEDS: Morphine 2 mg/ml ISec IVP PRN (04:51)
[2016-08-26] MEDS: Pantoprazole 40 mg EC Tab PO SCH (06:41)
--- NOTE | 2016-08-26 09:10 | PN ---
DATE: 08/26/2016 He has a lot of problems going on right now between his right foot cellulitis, right hand cellulitis, pus coming out of his right hand, right third toe amputation and removal. He is on IV antibiotics by infectious disease. He is on daptomycin, Abilify, Catapres, Ecotrin, Levemir, Lexapro, Lidoderm, Lipitor, Lovenox, Merrem, morphine, Protonix, IV bicarbonate, Tylenol. It sounds like he is going to need to have a longer period of time of IV antibiotics. He will need to go to [facility], except they will not take him on daptomycin. We have to discuss this with Dr. Beltrán, the infectious disease doctor, of which antibiotic we can change him to. PHYSICAL EXAMINATION: VITAL SIGNS: He has a 98 temp, 74 pulse, 168/ blood pressure, 18 respiratory rate, 91% O2 sat on nasal cannula. HEENT: His head is atraumatic, normocephalic. His throat is moist. NECK: Supple. HEART: Regular rate. EXTREMITIES: The right arm is less swollen. The right hand is less swollen and red after they opened it up and got pus out. The right foot is still a little cellulitic. He is more comfortable, still in pain. He is taking the pain medications. He has an 8.8 white count. That was on the . He is refusing many blood tests. He did have extremity ultrasounds. Upper extremity because of the swelling of the right arm and it was normal, so no clots and it is less swollen today. I am not sure why it got swollen in the first place. He is here for cellulitis and osteomyelitis with amputation and debility. He will need to go to [facility]. We have to make sure that the antibiotics match what the [facility] will handle, as per infectious disease. We will check his labs tomorrow. Hopefully, he will let us get them done. Kavon Patiño DO cc: [id number] TT: 08/26/2016 09:09:52 Confirmation # [id number] Dictation # [id number] en MTDD
--- NOTE | 2016-08-26 09:19 | CP.PCM.PN ---
<Kymberly Bonner - Last Filed: 08/26/16 09:15> Subjective - Date & Time of Evaluation Date of Evaluation: 08/26/16 Time of Evaluation: 09:15 - Subjective Subjective: 71 y/o male seen at bedside with attending Dr. Whitley 2 days s/p right foot 3rd digit amputation with metatarsal head resection. Patients dressing remains c /d/i with minimal strikethrough. Patient denies any acute events overnight. He denies n/f/v/d/c/sob. Patient states that his right arm and hand have been hurting but the redness has gone down a little since hes been elevating it with pillows. Objective - Vital Signs/Intake and Output Vital Signs (last 24 hours): Temp Pulse Resp BP Pulse Ox 98 F 74 18 168/78 H 91 L 08/25/16 05:56 08/25/16 05:56 08/25/16 05:56 08/25/16 05:56 08/25/16 05:56 - Medications Medications: Current Medications Acetaminophen (Tylenol 325mg Tab) 650 mg PO Q4H PRN PRN Reason: Pain, Mild (1-3) Aripiprazole (Abilify) 5 mg PO HS [facility] PRN Reason: Protocol Last Admin: 08/25/16 21:56 Dose: Not Given Aspirin (Ecotrin) 81 mg PO 0800 [facility] Last Admin: 08/26/16 08:09 Dose: Not Given Atorvastatin Calcium (Lipitor) 40 mg PO DIN [facility] PRN Reason: Protocol Last Admin: 08/25/16 18:49 Dose: Not Given Clonidine HCl (Catapres) 0.1 mg PO BID [facility] PRN Reason: Protocol Last Admin: 08/25/16 18:49 Dose: Not Given Enoxaparin Sodium (Lovenox) 40 mg SC DAILY [facility] PRN Reason: Protocol Escitalopram Oxalate (Lexapro) 5 mg PO QAM [facility] PRN Reason: Protocol Last Admin: 08/25/16 12:39 Dose: Not Given Sodium Bicarbonate 75 meq/ (Sodium Chloride) 1,075 mls @ 75 mls/hr IV .[id number] [facility] Last Admin: 08/26/16 01:39 Dose: Not Given Daptomycin 350 mg/ Sodium (Chloride) 100 mls @ 200 mls/hr IV QOTHERDAY [facility] PRN Reason: Protocol Stop: 08/30/16 15:01 Last Admin: 08/24/16 11:15 Dose: 200 mls/hr Meropenem 500 mg/ Sodium (Chloride) 100 mls @ 100 mls/hr IVPB Q12 [facility] PRN Reason: Protocol Stop: 08/31/16 15:16 Last Admin: 08/25/16 21:57 Dose: Not Given Insulin Detemir (Levemir) 12 unit SC HS [facility] PRN Reason: Protocol Last Admin: 08/25/16 21:56 Dose: Not Given Lidocaine (Lidoderm) 1 ea TD DAILY [facility] Last Admin: 08/25/16 12:40 Dose: 1 ea Morphine Sulfate (Morphine) 2 mg IVP Q4H PRN; Protocol PRN Reason: Pain, moderate (4-7) Last Admin: 08/26/16 04:51 Dose: 2 mg Oxycodone/Acetaminophen (Percocet 5/325 Mg Tab) 2 tab PO Q4H PRN PRN Reason: Pain, severe (8-10) Stop: 08/27/16 09:03 Pantoprazole Sodium (Protonix Ec Tab) 40 mg PO 0600 [facility] PRN Reason: Protocol Last Admin: 08/26/16 06:41 Dose: Not Given - Labs Labs: 08/22/16 06:15 08/22/16 06:15 APTT 69.3 Seconds (23.7-30.8) H 08/22/16 06:15 - Constitutional Appears: Well, Non-toxic, No Acute Distress - Extremities Exam Additional comments: below knee amputation to left leg vasc: nonpalpable pedal pulses, CFT < 4 sec to all digits, TG wnl neuro: grossly diminished derm: surgical site sutures intact, no dehiscence, no drainage, well coapted, no acute clinical signs of infection, no active bleeding, no malodor - Neurological Exam Neurological Exam: Alert, Awake, Oriented x3 - Psychiatric Exam Psychiatric exam: Normal Affect, Normal Mood Assessment and Plan - Assessment and Plan (Free Text) Assessment: 71 y/o male seen at bedside in TCU 2days s/p right foot 3rd digit amputation with partial metatarsal resection Plan: patient evaluated and seen at bedside with attending Dr. Whitley labs and vitals reviewed; WBC 8.8 applied betadine, DSD to right foot instructed patient to continue wearing offloading boots while in bed continue IV abx as per ID podiatry will continue to monitor while patient remains in house <Larissa Whitley - Last Filed: 08/30/16 12:23> Objective - Vital Signs/Intake and Output Vital Signs (last 24 hours): Temp Pulse Resp BP Pulse Ox 98.3 F 80 18 188/87 H 88 L 08/27/16 10:00 08/27/16 17:35 08/27/16 10:00 08/27/16 17:35 08/27/16 10:00 - Labs Labs: 08/22/16 06:15 08/22/16 06:15 APTT 69.3 Seconds (23.7-30.8) H 08/22/16 06:15 Attending/Attestation - Attestation I have personally seen and examined this patient.: Yes I have fully participated in the care of the patient.: Yes I have reviewed all pertinent clinical information, including history, physical exam and plan: Yes
[2016-08-26] MEDS ORDERED: Enoxaparin 40 mg Syringe SC SCH (10:00)
--- NOTE | 2016-08-26 10:10 | CP.PCM.PN ---
Subjective - Date & Time of Evaluation Date of Evaluation: 08/26/16 Time of Evaluation: 10:07 - Subjective Subjective: According to nurse, pt has been refusing his medication except for pain meds. Pt did not receive antibiotics last night. Afebrile R hand: appears a little better no pus from pustule slightly less erythema Had lengthy discussion with patient. Pt aware of risk of worsening infection as well as osteomyelitis if he doesn't receive antibiotics. Pt states he will accept antibiotics today. Dressing changed. Objective - Vital Signs/Intake and Output Vital Signs (last 24 hours): Temp Pulse Resp BP Pulse Ox 98 F 74 18 168/78 H 91 L 08/25/16 05:56 08/25/16 05:56 08/25/16 05:56 08/25/16 05:56 08/25/16 05:56 - Medications Medications: Current Medications Acetaminophen (Tylenol 325mg Tab) 650 mg PO Q4H PRN PRN Reason: Pain, Mild (1-3) Aripiprazole (Abilify) 5 mg PO HS [facility] PRN Reason: Protocol Last Admin: 08/25/16 21:56 Dose: Not Given Aspirin (Ecotrin) 81 mg PO 0800 [facility] Last Admin: 08/26/16 08:09 Dose: Not Given Atorvastatin Calcium (Lipitor) 40 mg PO DIN [facility] PRN Reason: Protocol Last Admin: 08/25/16 18:49 Dose: Not Given Clonidine HCl (Catapres) 0.1 mg PO BID [facility] PRN Reason: Protocol Last Admin: 08/25/16 18:49 Dose: Not Given Enoxaparin Sodium (Lovenox) 40 mg SC DAILY [facility] PRN Reason: Protocol Escitalopram Oxalate (Lexapro) 5 mg PO QAM [facility] PRN Reason: Protocol Last Admin: 08/25/16 12:39 Dose: Not Given Sodium Bicarbonate 75 meq/ (Sodium Chloride) 1,075 mls @ 75 mls/hr IV .[id number] [facility] Last Admin: 08/26/16 01:39 Dose: Not Given Daptomycin 350 mg/ Sodium (Chloride) 100 mls @ 200 mls/hr IV QOTHERDAY [facility] PRN Reason: Protocol Stop: 08/30/16 15:01 Last Admin: 08/24/16 11:15 Dose: 200 mls/hr Meropenem 500 mg/ Sodium (Chloride) 100 mls @ 100 mls/hr IVPB Q12 [facility] PRN Reason: Protocol Stop: 08/31/16 15:16 Last Admin: 08/25/16 21:57 Dose: Not Given Insulin Detemir (Levemir) 12 unit SC HS [facility] PRN Reason: Protocol Last Admin: 08/25/16 21:56 Dose: Not Given Lidocaine (Lidoderm) 1 ea TD DAILY [facility] Last Admin: 08/25/16 12:40 Dose: 1 ea Morphine Sulfate (Morphine) 2 mg IVP Q4H PRN; Protocol PRN Reason: Pain, moderate (4-7) Last Admin: 08/26/16 04:51 Dose: 2 mg Oxycodone/Acetaminophen (Percocet 5/325 Mg Tab) 2 tab PO Q4H PRN PRN Reason: Pain, severe (8-10) Stop: 08/27/16 09:03 Pantoprazole Sodium (Protonix Ec Tab) 40 mg PO 0600 [facility] PRN Reason: Protocol Last Admin: 08/26/16 06:41 Dose: Not Given - Labs Labs: 08/22/16 06:15 08/22/16 06:15 APTT 69.3 Seconds (23.7-30.8) H 08/22/16 06:15
[2016-08-26] MEDS: Meropenem 500 MG in Sodium Chloride 0.9% 100 ML IVPB SCH ×2 (10:28→23:46)
[2016-08-26] MEDS: Lidocaine 5% Patch TD SCH (10:57)
--- NOTE | 2016-08-26 12:26 | CP.PCM.PN ---
Subjective - Date & Time of Evaluation Date of Evaluation: 08/26/16 Time of Evaluation: 10:10 - Subjective Subjective: Less pain in the hand but still swollen, afebrile overnight. Objective - Vital Signs/Intake and Output Vital Signs (last 24 hours): Temp Pulse Resp BP Pulse Ox 98 F 74 18 168/78 H 91 L 08/25/16 05:56 08/25/16 05:56 08/25/16 05:56 08/25/16 05:56 08/25/16 05:56 - Medications Medications: Current Medications Acetaminophen (Tylenol 325mg Tab) 650 mg PO Q4H PRN PRN Reason: Pain, Mild (1-3) Aripiprazole (Abilify) 5 mg PO HS [facility] PRN Reason: Protocol Last Admin: 08/25/16 21:56 Dose: Not Given Aspirin (Ecotrin) 81 mg PO 0800 [facility] Last Admin: 08/26/16 08:09 Dose: Not Given Atorvastatin Calcium (Lipitor) 40 mg PO DIN [facility] PRN Reason: Protocol Last Admin: 08/25/16 18:49 Dose: Not Given Clonidine HCl (Catapres) 0.1 mg PO BID [facility] PRN Reason: Protocol Last Admin: 08/25/16 18:49 Dose: Not Given Enoxaparin Sodium (Lovenox) 40 mg SC DAILY [facility] PRN Reason: Protocol Escitalopram Oxalate (Lexapro) 5 mg PO QAM [facility] PRN Reason: Protocol Last Admin: 08/25/16 12:39 Dose: Not Given Sodium Bicarbonate 75 meq/ (Sodium Chloride) 1,075 mls @ 75 mls/hr IV .[id number] [facility] Last Admin: 08/26/16 01:39 Dose: Not Given Daptomycin 350 mg/ Sodium (Chloride) 100 mls @ 200 mls/hr IV QOTHERDAY [facility] PRN Reason: Protocol Stop: 08/30/16 15:01 Last Admin: 08/24/16 11:15 Dose: 200 mls/hr Meropenem 500 mg/ Sodium (Chloride) 100 mls @ 100 mls/hr IVPB Q12 [facility] PRN Reason: Protocol Stop: 08/31/16 15:16 Last Admin: 08/25/16 21:57 Dose: Not Given Insulin Detemir (Levemir) 12 unit SC HS [facility] PRN Reason: Protocol Last Admin: 08/25/16 21:56 Dose: Not Given Lidocaine (Lidoderm) 1 ea TD DAILY [facility] Last Admin: 08/25/16 12:40 Dose: 1 ea Morphine Sulfate (Morphine) 2 mg IVP Q4H PRN; Protocol PRN Reason: Pain, moderate (4-7) Last Admin: 08/26/16 04:51 Dose: 2 mg Oxycodone/Acetaminophen (Percocet 5/325 Mg Tab) 2 tab PO Q4H PRN PRN Reason: Pain, severe (8-10) Stop: 08/27/16 09:03 Pantoprazole Sodium (Protonix Ec Tab) 40 mg PO 0600 [facility] PRN Reason: Protocol Last Admin: 08/26/16 06:41 Dose: Not Given - Labs Labs: 08/22/16 06:15 08/22/16 06:15 APTT 69.3 Seconds (23.7-30.8) H 08/22/16 06:15 - Constitutional Appears: Non-toxic, No Acute Distress - Head Exam Head Exam: NORMAL INSPECTION - Neck Exam Neck Exam: absent: Lymphadenopathy, Meningismus - Respiratory Exam Respiratory Exam: Decreased Breath Sounds - Cardiovascular Exam Cardiovascular Exam: +S1, +S2 - GI/Abdominal Exam GI & Abdominal Exam: Soft. absent: Tenderness - Extremities Exam Additional comments: right hand with dressings in place Assessment and Plan - Assessment and Plan (Free Text) Plan: Assessment right hand cellulitis and right 3rd toe ulcer with probable osteomyelitis with associated methicillin-resistant Staph aureus bacteremia; still with swollen upper extremity but slowly improving; S/P right toe amputation with metatarsal head amputation as well POD#2; S/P expression of some pus from the right hand and now no pus is present history of left sided healthcare-associated pneumonia history of left stump infection with clinical osteomyelitis S/P left BKA with associated MRSA bacteremia history of left foot infection S/P transmetatarsal amputation (12/25/2015) with viable margins in a patient with a history of left foot gangrene and abscess S/ P incision and drainage of an abscess and first ray resection with osteomyelitis with Klebsiella; this is also associated with Klebsiella bacteremia diabetes mellitus alcohol abuse chronic renal failure Plan continue Daptomycin (day 11 total antibiotics from first negative blood cx, of at least 14 days) every 48 hours, renally-adjusted and Merrem day 3; repeat blood cultures are negative; 2D echo does not show vegetations; discussed with Dr. Patiño - Daptomycin may be switched to PO Linezolid when he is transferred to another rehab facility as long as his Lexapro is held while on the Zyvox (to avoid serotonin syndrome with those two meds); recommend to continue the antibiotics for another 2-3 weeks reviewed Ortho / hand surgeon evaluation - MRI shows cellulitis but no specific fluid collection Follow up pathology of the amputated right 3rd toe Will continue to monitor clinically while the patient is in the hospital
--- NOTE | 2016-08-26 12:40 | RAD ---
PROCEDURE: Radiographs of the right elbow. HISTORY: followup per Dr mix COMPARISON: No prior. FINDINGS: BONES: Normal. No fracture. JOINTS: Normal. No osteoarthritis. SOFT TISSUES: There is diffuse ulnar-sided subcutaneous edema at the mid humeral to prox imal forearm level. JOINT EFFUSION: None. OTHER FINDINGS: None. IMPRESSION: No bony abnormality. Nonspecific soft tissue -subcutaneous reticulated edema-lymphedema and/or cellulitis are some considerations. Correlation with physical exam here recommended
[2016-08-26] MEDS: Insulin Detemir 100 units/ml Vial (Levemir) SC SCH (23:28)
[2016-08-27] MEDS: Morphine 2 mg/ml ISec IVP PRN ×3 (00:53→21:38)
[2016-08-27] MEDS: Pantoprazole 40 mg EC Tab PO SCH (05:15)
[2016-08-27] MEDS: Enoxaparin 40 mg Syringe SC SCH (05:15)
--- NOTE | 2016-08-27 10:27 | DS ---
He was in the TCU. He had a right 3rd toe amputation for osteomyelitis. He has cellulitis of the ri ght hand and right foot. He needs to be on antibiotics for about 2 more weeks. He had cellulitis, o steomyelitis. He is currently on Abilify, Catapres, Ecotrin, Levemir, Lexapro, Lidoderm, Lipitor, Lovenox, Merrem, morphine, Protonix, sodium bicarb, Tylenol, and I believe infectious disease will change his IV antib iotics from daptomycin to another antibiotic so we can transfer him to [facility] for further IV a ntibiotics to finish the treatment. He will be switched to Zyvox p.o., plus the Merrem IV. He will need to be this for 3 weeks. VITAL SIGNS: 97.8 temp, 72 pulse, 173/87 blood pressure, 18 respiratory rate, and 92% O2 sat on room air. HEAD: Atraumatic, normocephalic. HEART: Regular rate. LUNGS: Decreased breath sounds, but clear. ABDOMEN: Soft, nontender, positive bowel sounds. He has a left BKA, a right 3rd toe amputation for osteo. He has a right hand cellulitis that was open ed up by surgery. It is looking better. He has 8.8 white count the last time did it. He refuses blood. Will continue with aggressive treatment and care. He is going to go to [facility] for subacute re hab for 3 weeks for IV antibiotics. Kavon Patiño DO cc: [id number] TT: 08/27/2016 10:27:23 jn
[2016-08-27] MEDS: Meropenem 500 MG in Sodium Chloride 0.9% 100 ML IVPB SCH ×2 (10:32→21:35)
[2016-08-27] MEDS: Lidocaine 5% Patch TD SCH (10:34)
[2016-08-27] MEDS ORDERED: Vancomycin 1gm in NS 250ml 250 ML IVPB STA (11:39)
--- NOTE | 2016-08-27 11:47 | CP.PCM.PN ---
Subjective - Date & Time of Evaluation Date of Evaluation: 08/27/16 Time of Evaluation: 10:20 - Subjective Subjective: Comfortable in bed, still with pain in the hand but a little better, not in distress. No fevers overnight. Objective - Vital Signs/Intake and Output Vital Signs (last 24 hours): Temp Pulse Resp BP Pulse Ox 97.8 F 72 18 189/94 H 92 L 08/26/16 10:00 08/26/16 10:54 08/26/16 10:00 08/27/16 05:16 08/26/16 10:00 - Medications Medications: Current Medications Acetaminophen (Tylenol 325mg Tab) 650 mg PO Q4H PRN PRN Reason: Pain, Mild (1-3) Aripiprazole (Abilify) 5 mg PO HS ANKUSH PRN Reason: Protocol Last Admin: 08/26/16 23:28 Dose: Not Given Aspirin (Ecotrin) 81 mg PO 0800 [facility] Last Admin: 08/26/16 08:09 Dose: Not Given Atorvastatin Calcium (Lipitor) 40 mg PO DIN ANKUSH PRN Reason: Protocol Last Admin: 08/26/16 19:22 Dose: Not Given Clonidine HCl (Catapres) 0.1 mg PO BID ANKUSH PRN Reason: Protocol Last Admin: 08/27/16 05:16 Dose: Not Given Enoxaparin Sodium (Lovenox) 40 mg SC 0600 [facility] PRN Reason: Protocol Last Admin: 08/27/16 05:15 Dose: Not Given Escitalopram Oxalate (Lexapro) 5 mg PO QAM ANKUSH PRN Reason: Protocol Last Admin: 08/26/16 10:55 Dose: Not Given Sodium Bicarbonate 75 meq/ (Sodium Chloride) 1,075 mls @ 75 mls/hr IV .[id number] [facility] Last Admin: 08/27/16 05:15 Dose: Not Given Daptomycin 350 mg/ Sodium (Chloride) 100 mls @ 200 mls/hr IV QOTHERDAY ANKUSH PRN Reason: Protocol Stop: 08/30/16 15:01 Last Admin: 08/26/16 11:00 Dose: 200 mls/hr Meropenem 500 mg/ Sodium (Chloride) 100 mls @ 100 mls/hr IVPB Q12 ANK[facility] PRN Reason: Protocol Stop: 08/31/16 15:16 Last Admin: 08/26/16 23:46 Dose: 100 mls/hr Insulin Detemir (Levemir) 12 unit SC HS ANKUSH PRN Reason: Protocol Last Admin: 08/26/16 23:28 Dose: Not Given Lidocaine (Lidoderm) 1 ea TD DAILY [facility] Last Admin: 08/26/16 10:57 Dose: 1 ea Morphine Sulfate (Morphine) 2 mg IVP Q4H PRN; Protocol PRN Reason: Pain, moderate (4-7) Last Admin: 08/27/16 00:53 Dose: 2 mg Oxycodone/Acetaminophen (Percocet 5/325 Mg Tab) 2 tab PO Q4H PRN PRN Reason: Pain, severe (8-10) Stop: 08/27/16 09:03 Pantoprazole Sodium (Protonix Ec Tab) 40 mg PO 0600 [facility] PRN Reason: Protocol Last Admin: 08/27/16 05:15 Dose: Not Given - Labs Labs: 08/22/16 06:15 08/22/16 06:15 APTT 69.3 Seconds (23.7-30.8) H 08/22/16 06:15 - Constitutional Appears: Non-toxic, No Acute Distress - ENT Exam ENT Exam: Mucous Membranes Moist - Neck Exam Neck Exam: absent: Lymphadenopathy, Meningismus - Respiratory Exam Respiratory Exam: Decreased Breath Sounds - Cardiovascular Exam Cardiovascular Exam: +S1, +S2 - GI/Abdominal Exam GI & Abdominal Exam: Soft. absent: Tenderness - Extremities Exam Additional comments: right hand with dressings in place Assessment and Plan - Assessment and Plan (Free Text) Plan: Assessment right hand cellulitis and right 3rd toe ulcer with probable osteomyelitis with associated methicillin-resistant Staph aureus bacteremia; still with swollen upper extremity but slowly improving; S/P right toe amputation with metatarsal head amputation as well POD#3; S/P expression of some pus from the right hand and now no pus is present history of left sided healthcare-associated pneumonia history of left stump infection with clinical osteomyelitis S/P left BKA with associated MRSA bacteremia history of left foot infection S/P transmetatarsal amputation (12/25/2015) with viable margins in a patient with a history of left foot gangrene and abscess S/ P incision and drainage of an abscess and first ray resection with osteomyelitis with Klebsiella; this is also associated with Klebsiella bacteremia diabetes mellitus alcohol abuse chronic renal failure Plan continue Daptomycin (day 12 total antibiotics from first negative blood cx, of at least 14 days) every 48 hours, renally-adjusted and Merrem day 4; repeat blood cultures are negative; 2D echo does not show vegetations; discussed with Dr. Patiño - Daptomycin may be switched to PO Linezolid when he is transferred to another rehab facility as long as his Lexapro is held while on the Zyvox (to avoid serotonin syndrome with those two meds); recommend to continue the antibiotics for another 2-3 weeks; if the patient leaves today, we will give another dose today to cover 14 days of therapy (since one dose lasts for 2 days with his renal function); will also need weekly CBC, CMP while on antibiotics reviewed Ortho / hand surgeon evaluation - MRI shows cellulitis but no specific fluid collection Follow up pathology of the amputated right 3rd toe Will continue to monitor clinically while the patient is in the hospital Discussed with Dr. Patiño
[2016-08-27 12:46] VITALS: TEMP 98.3; O2SAT 88
[2016-08-27 17:36] VITALS: BP 188/87; PULSE 80
[2016-08-27] MEDS: Insulin Detemir 100 units/ml Vial (Levemir) SC SCH (21:35)
[2016-08-28] MEDS: Enoxaparin 40 mg Syringe SC SCH (06:16)
[2016-08-28] MEDS: Pantoprazole 40 mg EC Tab PO SCH (06:16)
[2016-08-28] MEDS: Lidocaine 5% Patch TD SCH (09:21)
[2016-08-28] MEDS: Meropenem 500 MG in Sodium Chloride 0.9% 100 ML IVPB SCH (09:21)
--- NOTE | 2016-08-28 11:56 | DS ---
To [facility] for further IV antibiotics and physical therapy. He is on multiple IV antibiotics as per infectious disease. Waiting for the clarification of what we can put him on. There are certain medications the subacute will not accept like p.o. Zyvox. If we could change to IV Zyvox, they would take him. He will also be on IV Merrem instead of the IV daptom ycin, IV fluids, Abilify, Catapres, Ecotrin, insulin, Lidoderm, Lipitor, Lovenox, Protonix, and Tylen ol. VITAL SIGNS: 98.3 temp, 80 pulse, 188/87 blood pressure, 18 respiratory rate, and about 92% O2 sat o n room air. He is very noncompliant with his p.o. medications. That is his baseline. He does not always wear th e oxygen, but he does have bad infection and will need 3 more weeks of IV antibiotics. He had a right arm, right hand cellulitis, right foot cellulitis. He has renal insufficiency, diabet es and he is noncompliant. I am hoping to get him to [facility] today for further care of his fee t, hand and medications. We will see how infectious disease wants to handle the antibiotics. I will see him there tomorrow if he goes to [facility] today. Kavon Patiño DO cc: [phone] TT: 08/28/2016 11:55:59 tn
--- NOTE | 2016-08-28 13:18 | CP.PCM.PN ---
Subjective - Date & Time of Evaluation Date of Evaluation: 08/28/16 Time of Evaluation: 10:35 - Subjective Subjective: Patient's hand is still painful but is a little better, no fevers overnight, no diarrhea. Objective - Vital Signs/Intake and Output Vital Signs (last 24 hours): Temp Pulse Resp BP Pulse Ox 98.3 F 80 18 188/87 H 88 L 08/27/16 10:00 08/27/16 17:35 08/27/16 10:00 08/27/16 17:35 08/27/16 10:00 - Medications Medications: Current Medications Acetaminophen (Tylenol 325mg Tab) 650 mg PO Q4H PRN PRN Reason: Pain, Mild (1-3) Aripiprazole (Abilify) 5 mg PO HS ANKUSH PRN Reason: Protocol Last Admin: 08/27/16 21:35 Dose: Not Given Aspirin (Ecotrin) 81 mg PO 0800 [facility] Last Admin: 08/28/16 08:08 Dose: 81 mg Atorvastatin Calcium (Lipitor) 40 mg PO DIN [facility] PRN Reason: Protocol Last Admin: 08/27/16 17:35 Dose: Not Given Clonidine HCl (Catapres) 0.1 mg PO BID [facility] PRN Reason: Protocol Last Admin: 08/27/16 17:35 Dose: Not Given Enoxaparin Sodium (Lovenox) 40 mg SC 0600 [facility] PRN Reason: Protocol Last Admin: 08/28/16 06:16 Dose: Not Given Sodium Bicarbonate 75 meq/ (Sodium Chloride) 1,075 mls @ 75 mls/hr IV .[id number] [facility] Last Admin: 08/27/16 20:01 Dose: Not Given Daptomycin 350 mg/ Sodium (Chloride) 100 mls @ 200 mls/hr IV QOTHERDAY ANK[facility] PRN Reason: Protocol Stop: 08/30/16 15:01 Last Admin: 08/26/16 11:00 Dose: 200 mls/hr Meropenem 500 mg/ Sodium (Chloride) 100 mls @ 100 mls/hr IVPB Q12 [facility] PRN Reason: Protocol Stop: 08/31/16 15:16 Last Admin: 08/27/16 21:35 Dose: 100 mls/hr Insulin Detemir (Levemir) 12 unit SC HS [facility] PRN Reason: Protocol Last Admin: 03/30/17 21:35 Dose: Not Given Lidocaine (Lidoderm) 1 ea TD DAILY [facility] Last Admin: 08/27/16 10:34 Dose: 1 ea Linezolid (Zyvox) 600 mg PO BID [facility] PRN Reason: Protocol Last Admin: 08/27/16 17:35 Dose: Not Given Pantoprazole Sodium (Protonix Ec Tab) 40 mg PO 0600 [facility] PRN Reason: Protocol Last Admin: 08/28/16 06:16 Dose: Not Given - Labs Labs: 08/22/16 06:15 08/22/16 06:15 APTT 69.3 Seconds (23.7-30.8) H 08/22/16 06:15 - Constitutional Appears: Non-toxic, No Acute Distress - Head Exam Head Exam: NORMAL INSPECTION - ENT Exam ENT Exam: Mucous Membranes Moist - Neck Exam Neck Exam: absent: Lymphadenopathy, Meningismus - Respiratory Exam Respiratory Exam: Decreased Breath Sounds - Cardiovascular Exam Cardiovascular Exam: +S1, +S2 - GI/Abdominal Exam GI & Abdominal Exam: Soft. absent: Tenderness - Extremities Exam Additional comments: right hand with dry dressings in place Assessment and Plan - Assessment and Plan (Free Text) Plan: Assessment right hand cellulitis and right 3rd toe ulcer with probable osteomyelitis with associated methicillin-resistant Staph aureus bacteremia; slowly improving; S/P right toe amputation with metatarsal head amputation as well POD#3; S/P expression of some pus from the right hand and now no pus is present history of left sided healthcare-associated pneumonia history of left stump infection with clinical osteomyelitis S/P left BKA with associated MRSA bacteremia history of left foot infection S/P transmetatarsal amputation (12/25/2015) with viable margins in a patient with a history of left foot gangrene and abscess S/ P incision and drainage of an abscess and first ray resection with osteomyelitis with Klebsiella; this is also associated with Klebsiella bacteremia diabetes mellitus alcohol abuse chronic renal failure Plan continue Daptomycin (day 13 total antibiotics from first negative blood cx, of at least 14 days) every 48 hours, renally-adjusted and Merrem day 5; repeat blood cultures are negative; 2D echo does not show vegetations; discussed with Dr. Patiño - Daptomycin may be switched to IV Linezolid when he is transferred to another rehab facility as long as his Lexapro is held while on the Zyvox (to avoid serotonin syndrome with those two meds); recommend to continue the antibiotics for another 2-3 weeks; will also need weekly CBC, CMP while on antibiotics reviewed Ortho / hand surgeon evaluation - MRI shows cellulitis but no specific fluid collection Follow up pathology of the amputated right 3rd toe Will continue to monitor clinically while the patient is in the hospital Discussed with Dr. Patiño
--- NOTE | 2016-08-28 15:29 | PN ---
DATE: 08/28/2016 A 71-year-old male seen at bedside in TCU, status post right third digit amputation with accompanying metatarsal head resection. The patient states that his feet are feeling fine; however, his right dodd nd and elbow are in pain. He denies experiencing fever, chills, nausea or vomiting and says he has n ot been short of breath. VITAL SIGNS: Reveal a temperature of 98.3, pulse rate of 71, blood pressure of 182/81, respiratory r ate of 18. LABORATORY FINDINGS: Most recent reveal white count of 8.8, hemoglobin of 9.9, hematocrit of 29.1, p latelet count of 274. OBJECTIVE: There is noted to be a left above-knee amputation. Right lower extremity presents with s urgical site on the right foot where the sutures are intact with no drainage, no dehiscence, no signs of acute bacterial infection or cellulitis. ASSESSMENT: Status post right third digit amputation with accompanying metatarsal head resection, no complications noted. PLAN: We will cleanse the wound with Betadine solution and apply a dry sterile dressing. The patien t was told that he must wear the foam Multi Podus boots at all times to prevent heel breakdown. The patient agreed and he will be seen daily while in-house. Wu Hernandez DPM cc: [phone] TT: 08/28/2016 15:28:39 Confirmation # [id number] Dictation # [id number]
[2016-08-28] MEDS ORDERED: Linezolid 600 mg in D5W 300 ml 300 ML IVPB SCH (22:00)
== END 2016-08-28 19:35 | DRG 638 ==
LOC: TRCU 17:24
PROVIDERS: ADMIT Internal Medicine; ATTEND Family Medicine
PROC: F07Z9FZ Gait Training/Functional Ambulation Treatment using Assistive, Adaptive, Supportive or Protective Equipment (ICD-10-PCS; principal; 2016-08-20)
PROC: F08Z4FZ Home Management Treatment using Assistive, Adaptive, Supportive or Protective Equipment (ICD-10-PCS; 2016-08-23)
DX: E11.69 Type 2 diabetes mellitus with other specified complication (principal); M86.9 Osteomyelitis, unspecified; E11.621 Type 2 diabetes mellitus with foot ulcer; L03.115 Cellulitis of right lower limb; L03.113 Cellulitis of right upper limb; Z79.2 Long term (current) use of antibiotics; N17.9 Acute kidney failure, unspecified; B95.62 Methicillin resistant Staphylococcus aureus infection as the cause of diseases classified elsewhere; R78.81 Bacteremia; E11.52 Type 2 diabetes mellitus with diabetic peripheral angiopathy with gangrene; I13.0 Hypertensive heart and chronic kidney disease with heart failure and stage 1 through stage 4 chronic kidney disease, or unspecified chronic kidney disease; E11.22 Type 2 diabetes mellitus with diabetic chronic kidney disease; L97.519 Non-pressure chronic ulcer of other part of right foot with unspecified severity; Z91.19 Patient's noncompliance with other medical treatment and regimen; F10.10 Alcohol abuse, uncomplicated; E78.5 Hyperlipidemia, unspecified; N18.3 Chronic kidney disease, stage 3 (moderate); D63.1 Anemia in chronic kidney disease; Z79.4 Long term (current) use of insulin; Z89.512 Acquired absence of left leg below knee; Z89.421 Acquired absence of other right toe(s); Z87.891 Personal history of nicotine dependence; Z82.49 Family history of ischemic heart disease and other diseases of the circulatory system; Z83.3 Family history of diabetes mellitus

== ENCOUNTER 2016-08-21 07:38 | Day surgery (SDC) | payer MEDICARE ==
[2016-08-21 07:30] VITALS: BMI 19.8
[2016-08-21] MEDS ORDERED: Lidocaine 2% Inj (20ml) ONE (09:45)
[2016-08-21] MEDS ORDERED: Nitroglycerin 50mg in D5W 250 ML IV ONE (09:45)
[2016-08-21] MEDS ORDERED: Iodixanol 320 mg/ml 150 ml Bottle IV ONE (09:45)
[2016-08-21] MEDS ORDERED: Iodixanol 320 MG/ML 200 ML BOTTLE IV ONE (09:45)
[2016-08-21] MEDS ORDERED: Midazolam 2 MG/2 ML VIAL ONE ×2 (10:04→11:06)
[2016-08-21] MEDS ORDERED: Iodixanol 320 MG/ML 100 ML BOTTLE IV ONE (11:41)
[2016-08-21] MEDS ORDERED: Heparin25000 units/250ml 1/2NS 250 ML IV ONE (12:02)
[2016-08-21] MEDS ORDERED: Oxycodone/Acetaminophen 5/325 mg Tab PO PRN ×2 (12:28→12:34)
[2016-08-21 12:37] VITALS: TEMP 97.4
--- NOTE | 2016-08-21 13:35 | VASCULAR ---
PROCEDURE: 1. Selective right lower extremity arteriogram 2. Right anterior tibial artery CSI atherectomy and angioplasty HISTORY: Severe peripheral vascular disease. Previous left BKA. Gangrene and osteomyelitis right 3rd toe PHYSICIAN(S): Sanju Willis M.D. TECHNIQUE: The relative risks and indications of the procedure were explained to the patient and consent obtained. The patient was hydrated prior to the procedure and the appropriate labs drawn. The patient was placed supine on the arteriogram table and the left groin prepped and draped in the usual sterile fashion. Conscious sedation and monitoring were provided throughout the procedure by a nurse. Via a left common femoral artery approach, a 5 Kinyarwanda sheath was placed in the left groin. Through the sheath and over a guidewire, a 5 Kinyarwanda flush catheter was advanced over the bifurcation and placed in the right common femoral artery. A complete arteriogram was not performed due to the patient's renal insufficiency. An overlapping DSA right lower extremity arteriogram was performed. Magnification view of the right foot was obtained. A 0.035 angled Glidewire was advanced over the bifurcation and placed in the distal right SFA. A 6 Kinyarwanda 65 cm destination sheath was placed in the mid right SFA. Heparin 6000 units IV and nitroglycerin in 250 mcg aliquots were given. The occluded right anterior tibial artery was crossed rather easily with a Trailblazer catheter. 0.017 bare wire was placed in the right dorsalis pedis artery. CSI atherectomy of the right anterior tibial artery was performed with 1.25 mm micro kera. An antegrade channel was re-established. Long segment angioplasty at the right anterior tibial artery was performed with a 3.0 mm x 200 mm balloon. The proximal right anterior tibial artery was dilated with a 3.5 mm balloon. A good angiographic result was obtained. The occluded right posterior tibial artery was probed extensively with various catheters and various 0.0 1 4 and 0.035 guidewires. The occlusion could not be successfully crossed. The sheath was removed hemostasis obtained with a Perclose device. The patient tolerated the procedure well. FINDINGS: The right common femoral artery is patent. The right profunda femoral artery and right SFA are patent. There is slow antegrade flow. There is a mild stenosis of the terminal right SFA. There is a moderate stenosis of the mid right popliteal artery. There is severe right tibial occlusive disease. The right anterior tibial artery is the dominant artery and occludes proximally. The right peroneal artery is small with diffuse disease proximally. There is critical disease of the right posterior tibial artery. The right posterior tibial artery distally is patent. The right dorsalis pedis artery is large and patent. The dorsalis pedis artery supplies the main metatarsal branches. IMPRESSION: 1.Successful recanalization of a chronic right anterior tibial artery occlusion with CSI atherectomy and angioplasty as described above 2. Unable the recannulized the chronic occlusion of the right posterior tibial artery.
[2016-08-21 14:37] VITALS: O2SAT 95
[2016-08-21 16:05] VITALS: BP 160/70; PULSE 67; RESP 18
== END 2016-08-21 16:00 ==
LOC: SDSVAS 07:38
PROVIDERS: ATTEND Radiology Vascular & Interventional Radiology
DX: I73.9 Peripheral vascular disease, unspecified (principal); I70.92 Chronic total occlusion of artery of the extremities; Z89.512 Acquired absence of left leg below knee
CPT/HCPCS: 37229; 75710; 99152; 99153; C1714; C1725 ×4; C1760 ×2; C1769 ×4; C1887 ×2; C1894; J1644 ×3; J1940; J2250; J2405; J3010; J7120; Q9967

== ENCOUNTER 2016-08-24 07:22 | Day surgery (SDC) | payer MEDICARE ==
[2016-08-24] MEDS ORDERED: Lidocaine 2% Inj (20ml) ONE (07:23)
[2016-08-24] MEDS ORDERED: Propofol 10 mg/ml Inj (20 ML) ONE (07:56)
[2016-08-24] MEDS ORDERED: Midazolam 2 MG/2 ML VIAL ONE (07:56)
[2016-08-24] MEDS ORDERED: Lidocaine 2% Inj (20ml) IJ ONE (08:00)
[2016-08-24] MEDS ORDERED: Absorbable Gelatin Sponge Size 12-7 ONE (08:34)
[2016-08-24] MEDS ORDERED: Lactated Ringer's 1,000 ML IV SCH (09:15)
--- NOTE | 2016-08-24 10:30 | OP ---
PROCEDURE DATE: 08/24/2016 SURGEON: Dr. Larissa Whitley. ELECTROCARDIOGRAPH REPAIRER: Dr. Monte, PGY-1. ANESTHESIOLOGIST: Dr. Remy. ANESTHESIA: IV sedation with local. PREOPERATIVE DIAGNOSIS: Right foot third digit osteomyelitis. POSTOPERATIVE DIAGNOSIS: Right foot third digit osteomyelitis. PROCEDURE PERFORMED: Right foot third digit amputation with metatarsal head resection. INDICATIONS: This patient is a 71-year-old male with the above diagnoses. The patient has exhausted all conservative treatment at this time and now requires surgical intervention. The patient signed the consent after careful explanation of risks, benefits, complications and alternatives for surgical procedure. No guarantees were given nor implied. NPO status was confirmed prior to taking the karissa ent to the OR. PREPARATION: The patient was brought into the operating room and placed on the operating room table in supine position. Timeout was performed for identification of the correct patient and procedure. After induction of IV sedation, the patient received a total of 9 mL of 2% lidocaine plain in a local block type fashion to the right foot. The right foot was then prepped and draped in normal sterile manner and the procedure began. No tourniquet was used during the procedure. DESCRIPTION OF PROCEDURE: Attention was then drawn to the distal central aspect of the right foot. Attention was then drawn to the right third digit where a racquet type incision was made circumferent ially at the level proximally to the third metatarsophalangeal joint extending all around the toe usi ng a sterile #15 blade. The incision was then extended down through subcutaneous tissue down to the level of bone. This incision was then extended 2 cm proximal to the third metatarsal head. Using a bone clamp to stabilize the toe, the third digit was then disarticulated from the foot at the level o f the third metatarsophalangeal joint. The specimen was then passed from the operative field and sen t to pathology. Wound cultures were taken at this time and sent to pathology. Using a fresh #15 geri de, all necrotic and nonviable tissue was then excisionally debrided and excised from the surgical si te. At this time, the metatarsal head of the 3rd was then resected using a sagittal saw. A bone mitch geur was then used to smooth out the metatarsal and used to remove any sharp edges from the distal as pect of the metatarsal. The surgical site was then copiously flushed with sterile saline. At this t katey, the subcutaneous tissue was then reapproximated using 3-0 Vicryl and the skin layers were then r eapproximated and coapted using 3-0 nylon using a combination of simple and horizontal mattress techn ique. The right foot was then dressed with Adaptic, 4 x 4 gauze, Kerlix, and Abdulaziz. Immediate capilla ry refill time was noted to the surgical site. POSTOPERATIVE CONDITION: The patient tolerated the anesthesia and procedure well and was escorted to the recovery room with vital signs stable and neurovascular status intact to the right foot. The pa tient is to remain weightbearing as tolerated to the right lower extremity in a surgical shoe. Malina alexander will continue to follow the patient while in house and the patient will follow up with Dr. Lore reeves upon discharge. YIN MONTE DPM Larissa Whitley DPM cc: [id number] TT: 08/24/2016 10:29:38 joel
[2016-08-26 15:23] VITALS: O2SAT 92
[2016-08-26 15:24] VITALS: RESP 20; TEMP 97.4
[2016-08-26 15:25] VITALS: BP 155/70; PULSE 64
== END 2016-08-24 10:30 ==
LOC: SDS 07:22
PROVIDERS: ATTEND Podiatrist
DX: M86.171 Other acute osteomyelitis, right ankle and foot (principal); B95.7 Other staphylococcus as the cause of diseases classified elsewhere
CPT/HCPCS: 28820; 87070; 88305; 88311; J2250; J2704; J3010; J7120 ×2

== ENCOUNTER 2017-09-20 16:58 | Emergency (ER) | payer MEDICARE ==
[2017-09-20 17:19] VITALS: TEMP 97.5; BMI 21.9
--- NOTE | 2017-09-20 19:07 | ED PDOC ---
Arrival/HPI - General Chief Complaint: Lower Extremity Problem/Injury Time Seen by Provider: 09/20/17 17:39 Historian: Patient - History of Present Illness Narrative History of Present Illness (Text): 09/20/17 19:05 72yo male with PMhx of Diabetes, BKA of the left leg bib the EMS for b/l leg pain. Patient states pain started weeks ago, but he decided to come to the ED today for evaluation. He usually gets around with a walker. He denies trauma, redness, swelling, any other complaint. He did not take any pain medication. Past Medical History - Provider Review Nursing Documentation Reviewed: Yes - Infectious Disease Hx of Infectious Diseases: None - Cardiac Hx Pacemaker: No - Pulmonary Hx Respiratory Disorders: Yes (SMOKED CIGARETTES PPD QUIT) - Neurological Hx Paralysis: No - HEENT Hx HEENT Disorder: No - Renal Hx Renal Failure: Yes - Endocrine/Metabolic Hx Diabetes Mellitus Type 2: Yes - Hematological/Oncological Hx Blood Transfusions: No - Integumentary Hx Dermatological Disorder: Yes (POST I AND D AND DEBRIDEMENT OF LEFT FOOT.) Other/Comment: amputation left great/2nd toe,L BKA. 08-15-16 IASD TO INBETWEEN GROIN EXTENDS TO IN BETWEEN BUTTOCKS AREA,FLUSHED RED SKIN. CELLULITIS OF RIGHT HAND. LEFT 3RD TOE WITH A 1 CM IN DM WOUND WITH ENCRUSTATION.SWELLING, BURGUNDY SKIN COLORE,DENIES PAIN. - Musculoskeletal/Rheumatological Hx Musculoskeletal Disorders: Yes (OSTEOMYELITIS) - Gastrointestinal Hx Gastrointestinal Disorders: Yes (GASTRITIS) - Genitourinary/Gynecological Hx Genitourinary Disorders: Yes Hx Incontinence: Yes - Psychiatric Hx Emotional Abuse: No Hx Physical Abuse: No Hx Substance Use: No - Surgical History Other/Comment: amputation left 1/2/ toes bka 03/17/2016 - Anesthesia Hx Anesthesia Reactions: No Hx Malignant Hyperthermia: No - Suicidal Assessment Feels Threatened In Home Enviroment: No Family/Social History - Physician Review Nursing Documentation Reviewed: Yes Family/Social History: Unknown Family HX Smoking Status: Former Smoker Hx Alcohol Use: Yes (ETOH ABUSE H/O.DRINKS EVERY NOW AND THEN. LASD DRANK BEER 1.5 WEDNESDAY) Hx Substance Use: No Allergies/Home Meds Allergies/Adverse Reactions: Allergies No Known Allergies Allergy (Verified 03/23/17 02:41) Review of Systems - Physician Review All systems were reviewed & negative as marked: Yes - Review of Systems Constitutional: Normal Eyes: Normal ENT: Normal Respiratory: Normal Cardiovascular: Normal Gastrointestinal: Normal Genitourinary Male: Normal Musculoskeletal: Arthralgias (B/L leg pain) Skin: Normal Neurological: Normal Endocrine: Normal Hemo/Lymphatic: Normal Psychiatric: Normal Physical Exam Vital Signs Reviewed: Yes Vital Signs Temp Pulse Resp BP Pulse Ox 09/20/17 18:30 80 20 156/88 H 99 09/20/17 17:40 158/96 H 09/20/17 17:15 97.5 F L 85 18 97 Temperature: Afebrile Blood Pressure: Normal Pulse: Regular Respiratory Rate: Normal Appearance: Positive for: Well-Appearing, Non-Toxic, Comfortable, Unkept Pain Distress: None Mental Status: Positive for: Alert and Oriented X 3 - Systems Exam Head: Present: Atraumatic, Normocephalic Pupils: Present: PERRL Extroacular Muscles: Present: EOMI Conjunctiva: Present: Normal Mouth: Present: Moist Mucous Membranes Neck: Present: Normal Range of Motion Respiratory/Chest: Present: Clear to Auscultation, Good Air Exchange. No: Respiratory Distress, Accessory Muscle Use Cardiovascular: Present: Regular Rate and Rhythm, Normal S1, S2. No: Murmurs Abdomen: No: Tenderness, Distention, Peritoneal Signs Back: Present: Normal Inspection Upper Extremity: Present: Normal Inspection. No: Cyanosis, Edema Lower Extremity: Present: Normal Inspection, NORMAL PULSES, Normal ROM, Neurovascularly Intact. No: Edema, CALF TENDERNESS, Cyanosis, Loi's Sign, Tenderness, Swelling, Erythema, Deformity Neurological: Present: GCS=15, CN II-XII Intact, Speech Normal Skin: Present: Warm, Dry, Normal Color. No: Rashes Psychiatric: Present: Alert, Oriented x 3, Normal Insight, Normal Concentration Medical Decision Making ED Course and Treatment: 09/20/17 20:12 Pt present for stated history. He have no erythema. No swelling. No crepitus. No sign of infection. B/L doppler US - Negative for DVT B/L Tib/fib xray - Negative for any acute finding Result was DW the patient. His pain was controlled with Tramadol in ED. He will be DC home with Tramdol rx. Referred to his PMD. 09/20/17 20:[address] Patiño and he agreed with the plan to DC pt home. States he will do house call and arrange PT for the pt. - RAD Interpretation Radiology Orders: 09/20/17 17:51 TIBIA FIBULA BI [RAD] Stat DUPLEX LOWER EXTRM VEIN BILAT [US] Stat - Medication Orders Current Medication Orders: Discontinued Medications Tramadol HCl (Ultram) 50 mg PO STAT STA Stop: 09/20/17 17:53 Last Admin: 09/20/17 18:18 Dose: 50 mg MAR Pain Assessment Document 09/20/17 18:18 ELISE (Rec: 09/20/17 18:19 ELISE [id number]) Pain Reassessment Is this a pain reassessment? No Sleep Is patient sleeping during reassessment? No Presence of Pain Presence of Pain Yes Disposition/Present on Arrival - Present on Arrival Any Indicators Present on Arrival: No History of DVT/PE: No History of Uncontrolled Diabetes: No Urinary Catheter: No History of Decub. Ulcer: No History Surgical Site Infection Following: None - Disposition Have Diagnosis and Disposition been Completed?: Yes Diagnosis: Leg pain, Phantom limb pain Disposition: HOME/ ROUTINE Disposition Time: 19:50 Patient Plan: Discharge Patient Problems: Current Active Problems Problem Status Onset Leg pain Acute Phantom limb pain Acute Condition: STABLE Discharge Instructions (ExitCare): Muscle and Bone Pain (DC) Additional Instructions: Follow up with your Doctor Return to ED for any new symptom Prescriptions: traMADol [Ultram] 50 mg PO Q6 #12 tab Referrals: Abraham Ford, [Primary Care Provider] - Follow up with primary Forms: [employer] (Persian)
[2017-09-21 00:13] VITALS: BP 140/68; PULSE 82; RESP 18; O2SAT 96
--- NOTE | 2017-09-21 08:25 | RAD ---
PROCEDURE: Radiographs of the bilateral Tibiae and Fibulae. HISTORY: leg pain COMPARISON: None available. TECHNIQUE: Frontal and lateral views obtained. FINDINGS: BONES: RIGHT TIBIA: No fracture or destructive lesion. LEFT TIBIA: No fracture or destructive lesion. Status post left BKA. JOINT SPACES: RIGHT TIBIA: Normal. LEFT TIBIA: Normal. SOFT TISSUES: RIGHT TIBIA: Normal. LEFT TIBIA: Normal. OTHER FINDINGS: None. IMPRESSION: No evidence of fracture or arthritis. Status post left BKA.
--- NOTE | 2017-09-21 10:12 | US ---
HISTORY: Leg pain and swelling. Evaluate for DVT PHYSICIAN(S): Sanju Willis MD. TECHNIQUE: Duplex sonography and color-flow Doppler with graded compression were used to evaluate the deep venous systems of both lower extremities. The exam is somewhat limited by edema FINDINGS: The visualized deep venous systems of both lower extremities are sonographically normal and compressible. Normal wave forms and augmentation are seen. There is no sonographic evidence for deep venous thrombosis in the visualized segments of both lower extremities. The patient is status post left below-knee amputation. IMPRESSION: No sonographic evidence for deep venous thrombosis in the visualized segments of both lower extremities.
== END 2017-09-21 00:13 | disposition home or self-care (01) ==
LOC: ED 16:58
DX: M79.604 Pain in right leg (principal); M79.605 Pain in left leg; G54.6 Phantom limb syndrome with pain

== ENCOUNTER 2017-09-25 10:54 | Emergency (ER) | payer MEDICARE ==
[2017-09-25 10:54] VITALS: BMI 21.9
[2017-09-25 11:07] VITALS: TEMP 98
--- NOTE | 2017-09-25 11:37 | ED PDOC ---
Arrival/HPI - General Chief Complaint: Lower Extremity Problem/Injury Time Seen by Provider: 09/25/17 11:05 Historian: Patient - History of Present Illness Narrative History of Present Illness (Text): 09/25/17 11:53 A 72 year old male whose past medical history includes BKA, present to the emergency room complaining of pain to his BKA on the left leg and right heel. The patient states that he has been experiencing this pain for several days. He notes that he was seen in the emergency room 5 days ago where he received medication which relieved his symptoms for the night, but has continued to experience the pain. The patient denies fevers, chills, headache, dizziness, sore throat, cough, chest pain, shortness of breath, dyspnea on exertion, abdominal pain, nausea, vomiting, diarrhea, neck/back pain, urinary/bowel changes or any other complaint. PMD: Dr. Patiño Time/Duration: Other (Few Days) Symptom Onset: Sudden Symptom Course: Unchanged Activities at Onset: Rest, Light Context: Home Past Medical History - Provider Review Nursing Documentation Reviewed: Yes - Infectious Disease Hx of Infectious Diseases: None - Cardiac Hx Cardiac Disorders: No Hx Pacemaker: No - Pulmonary Hx Respiratory Disorders: Yes (SMOKED CIGARETTES PPD QUIT) - Neurological Hx Neurological Disorder: No Hx Paralysis: No - HEENT Hx HEENT Disorder: No - Renal Hx Renal Disorder: Yes Hx Renal Failure: Yes - Endocrine/Metabolic Hx Endocrine Disorders: Yes Hx Diabetes Mellitus Type 2: Yes - Hematological/Oncological Hx Blood Disorders: No Hx Blood Transfusions: No - Integumentary Hx Dermatological Disorder: Yes (POST I AND D AND DEBRIDEMENT OF LEFT FOOT.) Other/Comment: amputation left great/2nd toe,L BKA. 08-15-16 IASD TO INBETWEEN GROIN EXTENDS TO IN BETWEEN BUTTOCKS AREA,FLUSHED RED SKIN. CELLULITIS OF RIGHT HAND. LEFT 3RD TOE WITH A 1 CM IN DM WOUND WITH ENCRUSTATION.SWELLING, BURGUNDY SKIN COLORE,DENIES PAIN. - Musculoskeletal/Rheumatological Hx Musculoskeletal Disorders: Yes (OSTEOMYELITIS) Hx Osteomyelitis: Yes - Gastrointestinal Hx Gastrointestinal Disorders: Yes Hx Gastritis: Yes - Genitourinary/Gynecological Hx Genitourinary Disorders: Yes Hx Incontinence: Yes - Psychiatric Hx Psychophysiologic Disorder: No Hx Emotional Abuse: No Hx Physical Abuse: No Hx Substance Use: No - Surgical History Hx Amputation: Yes (left bka) Other/Comment: amputation left 1/2/ toes bka 03/17/2016 - Anesthesia Hx Anesthesia: Yes Hx Anesthesia Reactions: No Hx Malignant Hyperthermia: No - Suicidal Assessment Feels Threatened In Home Enviroment: No Family/Social History - Physician Review Nursing Documentation Reviewed: Yes Family/Social History: No Known Family HX Smoking Status: Former Smoker Hx Alcohol Use: Yes (ETOH ABUSE H/O.DRINKS EVERY NOW AND THEN. LASD DRANK BEER 1.5 WEDNESDAY) Hx Substance Use: No Allergies/Home Meds Allergies/Adverse Reactions: Allergies No Known Allergies Allergy (Verified 08/20/16 02:41) Review of Systems - Physician Review All systems were reviewed & negative as marked: Yes - Review of Systems Constitutional: absent: Fevers, Night Sweats ENT: absent: Sore Throat Respiratory: absent: SOB, Cough Cardiovascular: absent: Chest Pain, GERMAIN Gastrointestinal: absent: Abdominal Pain, Stool Changes, Diarrhea, Nausea, Vomiting Genitourinary Male: absent: Urinary Output Changes Musculoskeletal: Other (right heel pain and pain to BKA on left leg.). absent: Back Pain, Neck Pain Neurological: absent: Headache, Dizziness Physical Exam Vital Signs Reviewed: Yes Vital Signs Temp Pulse Resp BP Pulse Ox 09/25/17 15:05 90 18 172/94 H 97 09/25/17 13:50 95 H 17 189/99 H 96 09/25/17 12:50 72 204/124 H 09/25/17 11:30 99 H 18 199/110 H 96 09/25/17 10:58 98 F 99 H 19 95 Temperature: Afebrile Blood Pressure: Normal Pulse: Tachycardic Respiratory Rate: Normal Appearance: Positive for: Well-Appearing, Non-Toxic, Comfortable Pain Distress: None Mental Status: Positive for: Alert and Oriented X 3 - Systems Exam Head: Present: Atraumatic, Normocephalic Pupils: Present: PERRL Extroacular Muscles: Present: EOMI Conjunctiva: Present: Normal Mouth: Present: Moist Mucous Membranes Neck: Present: Normal Range of Motion Respiratory/Chest: Present: Clear to Auscultation, Good Air Exchange. No: Respiratory Distress, Accessory Muscle Use Cardiovascular: Present: Regular Rate and Rhythm, Normal S1, S2. No: Murmurs Abdomen: No: Tenderness, Distention, Peritoneal Signs Back: Present: Normal Inspection Upper Extremity: Present: Normal Inspection. No: Cyanosis, Edema Lower Extremity: Present: Normal ROM (Full ROM left leg. ), Other (Left BKA ). No: Tenderness (No tenderness to left BKA ) Neurological: Present: GCS=15, CN II-XII Intact, Speech Normal Skin: Present: Warm, Dry, Normal Color. No: Rashes Psychiatric: Present: Alert, Oriented x 3, Normal Insight, Normal Concentration Medical Decision Making ED Course and Treatment: 09/25/17 12:02 Impression: A 72 year old male presents to the emergency room complaining of pain to left BKA and right heel. Plan: -- Catapres -- Ultram -- Reassess and disposition Prior Visits: Notes and results from previous visits were reviewed. Patient was seen in the emergency room on 09/20/17 for a complaint of bilateral leg pain. Progress Notes: 09/25/17 12:13: Dr. Patiño came to evaluate patient. Sates patient can be discharged. He will follow up with patient next week. Patient's blood pressure improved with catapress. He denies any chest pain, sob, headache, back pain, lightheadedness, nausea, dizziness or any other HTN related symptom. He feels better with tramadol. He states he can't find his prescription at home so another prescription was given by me. Dr. Patiño will f/u with him as as home visit. - Medication Orders Current Medication Orders: Discontinued Medications Clonidine HCl (Catapres) 0.2 mg PO STAT STA Stop: 09/25/17 11:41 Last Admin: 09/25/17 12:50 Dose: 0.2 mg MAR Pulse and Blood Pressure Document 09/25/17 12:50 SF (Rec: 09/25/17 12:50 SF [id number] Pulse Pulse Rate (60-90) 72 Blood Pressure Blood Pressure (100/60-150/90) 204/124 Tramadol HCl (Ultram) 50 mg PO STAT STA Stop: 09/25/17 11:28 Last Admin: 09/25/17 11:41 Dose: 50 mg MAR Pain Assessment Document 09/25/17 11:41 SF (Rec: 09/25/17 11:41 SF [id number] Pain Reassessment Is this a pain reassessment? Yes Sleep Is patient sleeping during reassessment? No Presence of Pain Presence of Pain Yes - Scribe Statement The provider has reviewed the documentation as recorded by the Sharon Ireland Provider Rozinaibe Attestation: All medical record entries made by the Scribe were at my direction and personally dictated by me. I have reviewed the chart and agree that the record accurately reflects my personal performance of the history, physical exam, medical decision making, and the department course for this patient. I have also personally directed, reviewed, and agree with the discharge instructions and disposition. Disposition/Present on Arrival - Present on Arrival Any Indicators Present on Arrival: No History of DVT/PE: No History of Uncontrolled Diabetes: No Urinary Catheter: No History of Decub. Ulcer: No History Surgical Site Infection Following: None - Disposition Have Diagnosis and Disposition been Completed?: Yes Diagnosis: Leg pain, Hypertension Disposition: HOME/ ROUTINE Disposition Time: 14:45 Patient Plan: Discharge Condition: IMPROVED Discharge Instructions (ExitCare): High Blood Pressure in Adults Additional Instructions: Nettie, thank you for letting us take care of you today. Your provider was Dr. Kemp. You were treated for Leg Pain, Hypertension. The emergency medical care you received today was directed at your acute symptoms. If you were prescribed any medication, please fill it and take as directed. It may take several days for your symptoms to resolve. Return to the Emergency Department if your symptoms worsen, do not improve, or if you have any other problems. Please contact your doctor or call one of the physicians/clinics you have been referred to that are listed on the Patient Visit Information form that is included in your discharge packet. Bring any paperwork you were given at discharge with you along with any medications you are taking to your follow up visit. Our treatment cannot replace ongoing medical care by a primary care provider (PCP) outside of the emergency department. Thank you for allowing the [facility] team to be part of your care today. If you had an X-Ray or CT scan: A Radiologist will review the ED reading if any change in treatment is needed we will contact you. If you had a blood, urine, or wound culture: It will take several days for the results, if any change in treatment is needed we will contact you. If you had an STI test: It will take 48 hours for the results. Please call after 1 week if you have not heard back. Prescriptions: traMADol [Ultram] 50 mg PO Q6H PRN #10 tab PRN Reason: Pain, Moderate (4-7) Referrals: Kavon Patiño DO [Staff Provider] - Follow up with primary Forms: [employer] ([place] (Bengali)
[2017-09-25 15:06] VITALS: BP 172/94; PULSE 90; RESP 18; O2SAT 97
== END 2017-09-25 15:08 | disposition home or self-care (01) ==
LOC: ED 10:54
DX: I10 Essential (primary) hypertension (principal); M79.605 Pain in left leg; M79.604 Pain in right leg; E11.9 Type 2 diabetes mellitus without complications; Z87.891 Personal history of nicotine dependence

== ENCOUNTER 2017-09-30 17:05 | Emergency (ER) | payer MEDICARE ==
[2017-09-30 17:05] VITALS: BMI 21.9
[2017-09-30 17:30] VITALS: TEMP 99.1
--- NOTE | 2017-09-30 17:42 | ED PDOC ---
Arrival/HPI - General Historian: Patient - History of Present Illness Time/Duration: Other (see hpi) Context: Home <Robert Jaime P - Last Filed: 09/30/17 18:51> <SuleimanSuraj Regla - Last Filed: 09/30/17 22:41> - General Chief Complaint: Lower Extremity Problem/Injury Time Seen by Provider: 09/30/17 17:12 - History of Present Illness Narrative History of Present Illness (Text): 09/30/17 17:42 This 72 yo male with PMhx of Diabetes, BKA of the left leg BIB the EMS for left leg pain. Patient admits similar visit to this ED for same pain. Pain is located at the tip of left stump. Patient stated Tramadol works for his pain. Patient stated he lives alone. Patient denies fever, sob, cp, abdominal pain, DONATO, or recent illness. (Robert Jaime) Past Medical History - Provider Review Nursing Documentation Reviewed: Yes - Infectious Disease Hx of Infectious Diseases: None - Cardiac Hx Cardiac Disorders: No Hx Pacemaker: No - Pulmonary Hx Respiratory Disorders: Yes (SMOKED CIGARETTES PPD QUIT) - Neurological Hx Neurological Disorder: No Hx Paralysis: No - HEENT Hx HEENT Disorder: No - Renal Hx Renal Disorder: Yes Hx Renal Failure: Yes - Endocrine/Metabolic Hx Endocrine Disorders: Yes Hx Diabetes Mellitus Type 2: Yes - Hematological/Oncological Hx Blood Disorders: No Hx Blood Transfusions: No - Integumentary Hx Dermatological Disorder: Yes (POST I AND D AND DEBRIDEMENT OF LEFT FOOT.) Other/Comment: amputation left great/2nd toe,L BKA. 08-15-16 IASD TO INBETWEEN GROIN EXTENDS TO IN BETWEEN BUTTOCKS AREA,FLUSHED RED SKIN. CELLULITIS OF RIGHT HAND. LEFT 3RD TOE WITH A 1 CM IN DM WOUND WITH ENCRUSTATION.SWELLING, BURGUNDY SKIN COLORE,DENIES PAIN. - Musculoskeletal/Rheumatological Hx Musculoskeletal Disorders: Yes (OSTEOMYELITIS) Hx Osteomyelitis: Yes - Gastrointestinal Hx Gastrointestinal Disorders: Yes Hx Gastritis: Yes - Genitourinary/Gynecological Hx Genitourinary Disorders: Yes Hx Incontinence: Yes - Psychiatric Hx Psychophysiologic Disorder: No Hx Emotional Abuse: No Hx Physical Abuse: No Hx Substance Use: No - Surgical History Hx Amputation: Yes (left bka) Other/Comment: amputation left 1/2/ toes bka 03/17/2016 - Anesthesia Hx Anesthesia: Yes Hx Anesthesia Reactions: No Hx Malignant Hyperthermia: No - Suicidal Assessment Feels Threatened In Home Enviroment: No <Robert Jaime - Last Filed: 09/30/17 18:51> Family/Social History - Physician Review Nursing Documentation Reviewed: Yes Family/Social History: Other (noncontributory) Smoking Status: Former Smoker Hx Alcohol Use: Yes (ETOH ABUSE H/O.DRINKS EVERY NOW AND THEN. LASD DRANK BEER 1.5 WEDNESDAY) Hx Substance Use: No <Robert Jaime P - Last Filed: 09/30/17 18:51> Allergies/Home Meds <Robert Jaime P - Last Filed: 09/30/17 18:51> <Suraj Bearden T - Last Filed: 09/30/17 22:41> Allergies/Adverse Reactions: Allergies No Known Allergies Allergy (Verified 08/20/16 02:41) Review of Systems - Review of Systems Constitutional: Normal. absent: Fatigue, Weight Change, Fevers Eyes: Normal ENT: Normal Respiratory: Normal Cardiovascular: Normal Gastrointestinal: Normal Genitourinary Male: Normal Musculoskeletal: Other (left amputation tip of stump pain. Amputation below left knee.) Skin: Normal. absent: Rash, Cellulitis Neurological: Normal Endocrine: Normal Hemo/Lymphatic: Normal Psychiatric: Normal <Robert Jaime P - Last Filed: 09/30/17 18:51> Physical Exam Temperature: Afebrile Blood Pressure: Hypertensive Pulse: Tachycardic Respiratory Rate: Normal Appearance: Positive for: Well-Appearing, Non-Toxic, Comfortable, Unkept Pain Distress: None Mental Status: Positive for: Alert and Oriented X 3 - Systems Exam Head: Present: Atraumatic, Normocephalic Pupils: Present: PERRL Extroacular Muscles: Present: EOMI Conjunctiva: Present: Normal Mouth: Present: Moist Mucous Membranes Neck: Present: Normal Range of Motion Respiratory/Chest: Present: Clear to Auscultation, Good Air Exchange. No: Respiratory Distress, Accessory Muscle Use Cardiovascular: Present: Regular Rate and Rhythm, Normal S1, S2. No: Murmurs Abdomen: No: Tenderness, Distention, Peritoneal Signs Back: Present: Normal Inspection Upper Extremity: Present: Normal Inspection, Normal ROM, NORMAL PULSES, Neurovascularly Intact, Capillary Refill < 2s. No: Cyanosis, Edema, Swelling, Erythema Lower Extremity: Present: Normal ROM, Neurovascularly Intact, Capillary Refill < 2 s, Other (Left lower leg stump has not skin lesion, erythema, abscess, or FB ). No: Edema Neurological: Present: GCS=15, CN II-XII Intact, Speech Normal, Motor Func Grossly Intact, Normal Sensory Function Skin: Present: Warm, Dry, Normal Color. No: Rashes Psychiatric: Present: Alert, Oriented x 3, Other ((+) Poor hygiene, poor grooming) <Robert Jaime P - Last Filed: 09/30/17 18:51> Vital Signs Temp Pulse Resp BP Pulse Ox 09/30/17 17:20 99.1 F 76 24 160/90 H 90 L 09/30/17 17:17 98.1 F 106 H 160/90 H Medical Decision Making <Robert Jaime - Last Filed: 09/30/17 18:51> <Suraj Bearden - Last Filed: 09/30/17 22:41> ED Course and Treatment: Signed out to me by ISHMAEL Jaime pending PES eval. Patient offered admission due to disheveled appearance but no acute psychosis and does not meet criteria for involuntary admission. Patient refused admission, Dr. Farmer therefore recommends signing out AMA. Pain improved after tramadol, unable to prescribe, will require from PMD. (Suraj Bearden) - Lab Interpretations Lab Results: 09/30/17 18:25 09/30/17 18:25 Lab Results 09/30/17 21:15: Urine Opiates Screen Negative, Urine Methadone Screen Negative, Ur Barbiturates Screen Negative, Ur Phencyclidine Scrn Negative, Ur Amphetamines Screen Negative, U Benzodiazepines Scrn Negative, U Oth Cocaine Metabols Negative, U Cannabinoids Screen Negative 09/30/17 21:15: Urine Color Yellow, Urine Appearance Clear, Urine pH 6.0, Ur Specific [place] >= 1.030, Urine Protein 100 H, Urine Glucose (UA) Negative, Urine Ketones Negative, Urine Blood Trace-intact H, Urine Nitrate Negative, Urine Bilirubin Negative, Urine Urobilinogen 0.2, Ur Leukocyte Esterase Negative , Urine RBC 0 - 2, Urine WBC 1 - 3, Ur Epithelial Cells 0 - 2, Urine Bacteria Few 09/30/17 18:25: Alcohol, Quantitative < 10 09/30/17 18:25: Salicylates < 1 L, Acetaminophen < 10.0 L 09/30/17 18:25: Sodium 145, Potassium 4.0, Chloride 112 H, Carbon Dioxide 17 L, Anion Gap 20, BUN 43 H, Creatinine 3.3 H, Est GFR ( Amer) 22, Est GFR ( Non-Af Amer) 18, Random Glucose 202 H, Calcium 8.8, Magnesium 1.8, Total Bilirubin 0.3, AST 22, ALT 19, Alkaline Phosphatase 92, Lactate Dehydrogenase 397, Total Creatine Kinase 44, Troponin I 0.02 D, Total Protein 6.7, Albumin 3.8, Globulin 2.9, Albumin/Globulin Ratio 1.3 09/30/17 18:25: WBC 7.4, RBC 4.16, Hgb 12.2 L, Hct 36.4 L, MCV 87.5, MCH 29.3, MCHC 33.5, RDW 13.4, Plt Count 211, MPV 11.1 H, Gran % 63.4, Lymph % (Auto) 26.5 , [place] % (Auto) 7.4 H, Eos % (Auto) 2.3, Baso % (Auto) 0.4, Gran # 4.70, Lymph # (Auto) 2.0, [place] # (Auto) 0.6, Eos # (Auto) 0.2, Baso # (Auto) 0.03 - RAD Interpretation Radiology Orders: 09/30/17 18:28 CHEST PORTABLE [RAD] Stat - Medication Orders Current Medication Orders: Discontinued Medications Tramadol HCl (Ultram) 50 mg PO STAT STA Stop: 09/30/17 19:57 Last Admin: 09/30/17 20:14 Dose: 50 mg [facility] Pain Assessment Document 09/30/17 20:14 AD (Rec: 09/30/17 20:15 AD [id number]) Pain Reassessment Is this a pain reassessment? No Presence of Pain Presence of Pain Yes Pain Scale Used Pain Scale Used Numeric Location Left, Right or Bilateral Left Pain Location Body Site Leg Description Intensity of Pain at present 8 Pain Behavior Facial Grimacing Disposition/Present on Arrival - Present on Arrival History of DVT/PE: No History of Uncontrolled Diabetes: No Urinary Catheter: No History of Decub. Ulcer: No History Surgical Site Infection Following: None <Jaime,Nahim P - Last Filed: 09/30/17 18:51> - Present on Arrival Any Indicators Present on Arrival: No - Disposition Have Diagnosis and Disposition been Completed?: Yes Disposition Time: 22:41 Patient Plan: Discharge <Suraj Bearden - Last Filed: 09/30/17 22:41> - Disposition Diagnosis: Pain Disposition: AGAINST MEDICAL ADVICE Condition: STABLE Discharge Instructions (ExitCare): Acute Pain, Adult Referrals: Kavon Patiño DO [Primary Care Provider] - Follow up with primary Forms: [employer] ([place]inian)
[2017-09-30 18:38] LABS: BASO # 0.03 K/mm3 (0.0-2.0); BASO % 0.4 % (0.0-3.0); EOS # 0.2 (0.0-0.7); EOS % 2.3 % (1.5-5.0); GRAN # 4.7 (1.4-6.5); GRAN % 63.4 % (50.0-68.0); HEMOGLOBIN 12.2 g/dL (14.0-18.0); LYMPH % 26.5 % (22.0-35.0); MEAN CELL VOLUME 87.5 fl (80.0-105.0); MEAN CORPUSCULAR HEMOGLOBIN 29.3 pg (25.0-35.0); MEAN CORPUSCULAR HGB CONC 33.5 g/dl (31.0-37.0); MEAN PLATELET VOLUME 11.1 fl (7.0-11.0); MONO # 0.6 (0.1-0.6); MONO % 7.4 % (1.0-6.0); RBC 4.16 10^6/uL (3.5-6.1); RED CELL DISTRIBUTION WIDTH 13.4 % (11.5-14.5); WHITE BLOOD COUNT 7.4 10^3/ul (4.5-11.0)
--- NOTE | 2017-09-30 18:40 | RAD ---
HISTORY: PES eval COMPARISON: No prior. FINDINGS: LUNGS: No active pulmonary disease. PLEURA: No significant pleural effusion identified, no pneumothorax apparent. CARDIOVASCULAR: No radiographic findings to suggest acute or significant cardiovascular disease. OSSEOUS STRUCTURES: No significant abnormalities. VISUALIZED UPPER ABDOMEN: Normal. OTHER FINDINGS: None. IMPRESSION: No active disease. Concordant results with the preliminary interpretation rendered by the emergency department physician procedure.
[2017-09-30 19:04] LABS: ALB/GLOB RATIO 1.3 (1.1-1.8); ALBUMIN 3.8 g/dL (3.0-4.8); CALCIUM 8.8 mg/dL (8.4-10.5)
[2017-09-30 19:05] LABS: TROPONIN I 0.02 ng/mL
[2017-09-30 19:06] LABS: ACETAMINOPHEN < 10.0 ug/ml (10.0-20.0); SALICYLATE < 1 mg/dL (2.0-20.0)
[2017-09-30 21:31] LABS: URINE APPEARANCE CLEAR (CLEAR); URINE BILIRUBIN NEGATIVE (NEGATIVE); URINE BLOOD TRACE-INTACT (NEGATIVE); URINE COLOR YELLOW (YELLOW); URINE GLUCOSE (UA) NEGATIVE (NEGATIVE); URINE LEUKOCYTE ESTERASE NEGATIVE Leu/uL (NEGATIVE); URINE PROTEIN 100 mg/dL (<30 mg/dL); URINE UROBILINOGEN 0.2 E.U./dL (<1 E.U./dL)
[2017-09-30 21:42] LABS: URINE BACTERIA FEW (NEG); URINE EPITHELIAL CELLS 0 - 2 /hpf (0-5); URINE RBC 0 - 2 /hpf (0-2)
[2017-09-30 21:56] LABS: BARBITURATES, UR NEGATIVE (NEGATIVE); BENZODIAZEPINES, UR NEGATIVE (NEGATIVE); OPIATES, UR NEGATIVE (NEGATIVE); PHENCYCLIDINE, UR NEGATIVE (NEGATIVE)
[2017-09-30 23:08] VITALS: RESP 18; O2SAT 100
[2017-10-01 06:04] VITALS: BP 140/89; PULSE 85
== END 2017-10-01 05:30 | disposition left against medical advice (07) ==
LOC: ED 17:05
DX: M79.605 Pain in left leg (principal); E11.9 Type 2 diabetes mellitus without complications; Z89.512 Acquired absence of left leg below knee
CPT/HCPCS: 71045; 80053; 81001; 82550; 83615; 83735; 84484; 85025; 99282; G0480

== ENCOUNTER 2018-03-22 13:32 | Inpatient (IN) | payer MEDICARE ==
[2018-03-22 13:35] VITALS: BMI 21.1
--- NOTE | 2018-03-22 14:24 | ED PDOC ---
Arrival/HPI - General Chief Complaint: Lower Extremity Problem/Injury Time Seen by Provider: 03/22/18 14:09 Historian: Patient - History of Present Illness Narrative History of Present Illness (Text): 03/22/18 14:18 Patient is a 73 year old male, with past medical history of diabetes and BKA of the left knee, presents to the Emergency Department via EMS complaining of bilateral leg discomfort since several months. Patient informs right heel pain and left stump discomfort similar to "nerve" pain. Patient denies any recent trauma or injury. Patient reports ambulation without any difficulty with his prosthesis. Patient informs mild cough since yesterday and believes he "has a cold" as he has been fatigued and short of breath at times. He denies chest pain or pleuritic discomfort. Denies fevers or chills currently. Denies hemoptysis. Denies right leg swelling or redness. Denies recent trauma. PMD: Dr. Kavon Patiño 03/22/18 20:14 Time/Duration: > month Symptom Onset: Gradual Symptom Course: Unchanged Quality: Aching Activities at Onset: Light Context: Home Past Medical History - Provider Review Nursing Documentation Reviewed: Yes - Infectious Disease Hx of Infectious Diseases: None - Cardiac Hx Cardiac Disorders: No Hx Hypertension: No - Pulmonary Hx Tuberculosis: No - Neurological HX Cerebrovascular Accident: No Hx Seizures: No - HEENT Hx HEENT Disorder: No - Renal Hx Renal Disorder: Yes Hx Renal Failure: Yes - Endocrine/Metabolic Hx Endocrine Disorders: Yes Hx Diabetes Mellitus Type 2: Yes - Hematological/Oncological Hx Cancer: No - Integumentary Hx Dermatological Disorder: Yes (POST I AND D AND DEBRIDEMENT OF LEFT FOOT.11-11-15) Other/Comment: amputation left great/2nd toe,L BKA. 08-15-16 IASD TO INBETWEEN G ROIN EXTENDS TO IN BETWEEN BUTTOCKS AREA,FLUSHED RED SKIN. CELLULITIS OF RIGHT HAND. LEFT 3RD TOE WITH A 1 CM IN DM WOUND WITH ENCRUSTATION.SWELLING,BURGUNDY SKIN COLORE,DENIES PAIN. - Musculoskeletal/Rheumatological Hx Musculoskeletal Disorders: Yes (OSTEOMYELITIS) Hx Osteomyelitis: Yes Other/Comment: L BKA - Gastrointestinal Hx Gastrointestinal Disorders: Yes Hx Gastritis: Yes - Genitourinary/Gynecological Hx Sexually Transmitted Diseases: No - Psychiatric Hx Psychophysiologic Disorder: No Hx Emotional Abuse: No Hx Physical Abuse: No Hx Substance Use: No - Surgical History Hx Amputation: Yes (left bka) Other/Comment: amputation left 1/2/ toes bka 03/17/2016 - Anesthesia Hx Anesthesia: Yes Hx Anesthesia Reactions: No Hx Malignant Hyperthermia: No - Suicidal Assessment Feels Threatened In Home Enviroment: No Family/Social History - Physician Review Nursing Documentation Reviewed: Yes Family/Social History: No Known Family HX Smoking Status: Former Smoker Hx Alcohol Use: Yes (ETOH ABUSE H/O.DRINKS EVERY NOW AND THEN. LASD DRANK BEER 1.5 WEDNESDAY) Hx Substance Use: No Allergies/Home Meds Allergies/Adverse Reactions: Allergies No Known Allergies Allergy (Verified 08/20/16 02:41) Review of Systems - Review of Systems Constitutional: Fatigue. absent: Fevers Eyes: absent: Vision Changes ENT: absent: Sore Throat, Rhinorrhea Respiratory: SOB, Cough. absent: Sputum Cardiovascular: absent: Chest Pain, GERMAIN Gastrointestinal: absent: Abdominal Pain, Diarrhea, Nausea, Vomiting Genitourinary Male: absent: Dysuria, Hematuria Musculoskeletal: Other (right foot and left stump discomfort). absent: Back Pain, Neck Pain Skin: absent: Rash Neurological: absent: Headache, Dizziness, Focal Weakness Hemo/Lymphatic: absent: Easy Bleeding Psychiatric: absent: Anxiety, Depression Physical Exam - Physical Exam Narrative Physical Exam (Text): 03/22/18 14:25 Head: Atraumatic. Normocephalic. Poor hygeine. Scaly scalp skin. Eyes: PERRL. EOMI. Conjunctivae are not pale. ENT: Mucous membranes are dry. Oropharynx is clear and symmetric. No facial edema. No stridor. Neck: Supple. Full ROM. No JVD. No lymphadenopathy. No meningeal signs. Cardiovascular: Regular rate. Regular rhythm. Systolic murmur. Pulmonary/Chest: No evidence of respiratory distress. Mild rhonchi. No accessory muscle usage. Abdominal: Soft and non-distended. There is no tenderness. No rebound, guarding, or rigidity. No organomegaly. Good bowel sounds. Back: No CVA tenderness. No midline pain. NO upper back lesions noted. Extremities: History of left leg amputation. There is no edema, erythema or ulcerations noted. Right lower extremity with intact distal pulse with no eryth mira or edema. Skin: No foot ulcerations, no lower extremity erythema or cellulitis noted. Neurological: Alert, awake, and oriented. Motor and sensory exam intact. Psychiatric: Good eye contact. Normal interaction, affect, and behavior. Vital Signs Reviewed: Yes Vital Signs Temp Pulse Resp BP Pulse Ox 03/22/18 13:47 98.4 F 82 18 160/60 H 98 Temperature: Afebrile Blood Pressure: Hypertensive Pulse: Regular Respiratory Rate: Normal Appearance: Positive for: Well-Appearing, Non-Toxic, Comfortable, Unkept Pain Distress: Mild Mental Status: Positive for: Alert and Oriented X 3 Medical Decision Making ED Course and Treatment: 03/22/18 14:26 Impression: 73 year old male presents to the Emergency Department complaining of right foot and left stump discomfort. Plan: -- EKG -- Labs -- Chest X-ray -- Tramadol -- Influenza AB -- UA -- Reassess and disposition Prior Visits: Notes and results from previous visits were reviewed. Progress Notes: Patient's prior notes and visits reviewed. He has had history of left stump pain, right heel pain intermittently for several months. NO calf pain noted. There are toe amputations noted to right foot from prior surgery, but no acute erythema or edema noted. No ulcerations noted in the left stump or right foot. No acute bony trauma noted. Pain improved with Tramadol. Patient is extremely disheveled. Lives by himself. Troponin is 0.11. He denies chest pain or pleuritic discomfort. Will admit for monitoring as he has complained of some cough and dyspnea with exertion recently, although currently no wheezing or hypoxia noted. No pain noted. Case d/w Dr. Grabiel Patiño. Cr elevated although similar to past visit. K is unremarkable at this time. - RAD Interpretation Narrative RAD Interpretations (Text): 03/22/18 15:48 Chest X-ray reviewed by radiologist, shows: FINDINGS: LUNGS: No active pulmonary disease. PLEURA: No significant pleural effusion identified, no pneumothorax apparent. CARDIOVASCULAR: No atherosclerotic calcification present No radiographic findings to suggest acute or significant cardiovascular disease. OSSEOUS STRUCTURES: No significant abnormalities. VISUALIZED UPPER ABDOMEN: Normal. OTHER FINDINGS: None. IMPRESSION: No active disease. No significant interval change compared to the prior examination(s). Box Person: Radiologist - EKG Interpretation EKG Interpretation (Text): EKG at 1349 normal sinus rhythm rate of 85 with left ventricular hypertrophy, inferior infarct age undetermined Interpreted by ED Physician: Yes Type: 12 lead EKG - Scribe Statement The provider has reviewed the documentation as recorded by the Rozinaibe Jordan Jasso. All medical record entries made by the Rozinaibe were at my direction and personally dictated by me. I have reviewed the chart and agree that the record accurately reflects my personal performance of the history, physical exam, medical decision making, and the department course for this patient. I have also personally directed, reviewed, and agree with the discharge instructions and disposition. Disposition/Present on Arrival - Present on Arrival Any Indicators Present on Arrival: No History of DVT/PE: No History of Uncontrolled Diabetes: No Urinary Catheter: No History of Decub. Ulcer: No History Surgical Site Infection Following: None - Disposition Have Diagnosis and Disposition been Completed?: Yes Diagnosis: Leg pain, UTI (urinary tract infection), Renal insufficiency, Elevated troponin Disposition: HOSPITALIZED Disposition Time: 15:15 Patient Plan: Admission, Telemetry Patient Problems: Current Active Problems Problem Status Onset Elevated troponin Acute Leg pain Acute Renal insufficiency Acute UTI (urinary tract infection) Acute Condition: FAIR
--- NOTE | 2018-03-22 15:41 | RAD ---
Date of service: 03/22/2018 HISTORY: weakness COMPARISON: 09/30/2017 FINDINGS: LUNGS: No active pulmonary disease. PLEURA: No significant pleural effusion identified, no pneumothorax apparent. CARDIOVASCULAR: No atherosclerotic calcification present No radiographic findings to suggest acute or significant cardiovascular disease. OSSEOUS STRUCTURES: No significant abnormalities. VISUALIZED UPPER ABDOMEN: Normal. OTHER FINDINGS: None. IMPRESSION: No active disease. No significant interval change compared to the prior examination(s).
[2018-03-22 16:04] LABS: BASO # 0.02 K/mm3 (0.0-2.0); BASO % 0.3 % (0.0-3.0); EOS # 0.2 (0.0-0.7); EOS % 2.5 % (1.5-5.0); GRAN # 5.53 (1.4-6.5); LYMPH # 1.2 (1.2-3.4); LYMPH % 15.6 % (22.0-35.0); MEAN CELL VOLUME 89.8 fl (80.0-105.0); MEAN CORPUSCULAR HEMOGLOBIN 29.4 pg (25.0-35.0); MEAN CORPUSCULAR HGB CONC 32.7 g/dl (31.0-37.0); MEAN PLATELET VOLUME 10.9 fl (7.0-11.0); MONO # 0.7 (0.1-0.6); MONO % 9.6 % (1.0-6.0); RBC 5.11 10^6/uL (3.5-6.1); RED CELL DISTRIBUTION WIDTH 13.9 % (11.5-14.5); WHITE BLOOD COUNT 7.7 10^3/ul (4.5-11.0)
[2018-03-22 16:14] LABS: ALB/GLOB RATIO 1.1 (1.1-1.8); ALBUMIN 3.7 g/dL (3.0-4.8); CALCIUM 8.5 mg/dL (8.4-10.5)
[2018-03-22 16:25] LABS: TROPONIN I 0.11 ng/mL
[2018-03-22] MEDS: Sodium Chloride 0.45% 1,000 ML IV SCH (17:52)
[2018-03-22 18:04] LABS: URINE BILIRUBIN NEGATIVE (NEGATIVE); URINE BLOOD SMALL (NEGATIVE); URINE GLUCOSE (UA) 100 mg/dL (NEGATIVE); URINE LEUKOCYTE ESTERASE LARGE Leu/uL (NEGATIVE); URINE PROTEIN 100 mg/dL (<30 mg/dL); URINE UROBILINOGEN 0.2 E.U./dL (<1 E.U./dL)
[2018-03-22 18:05] LABS: URINE APPEARANCE SLIGHT-CLOUDY (CLEAR); URINE COLOR YELLOW (YELLOW)
[2018-03-22 18:07] LABS: URINE BACTERIA NEG (NEG)
[2018-03-22] MEDS ORDERED: cefTRIAXone 1 gm 1 GM/100 ML BAG IVPB STA (20:18)
[2018-03-22 22:25] LABS: TROPONIN I 0.1 ng/mL
[2018-03-22] MEDS: Insulin Reg-LOW-Coverage SC SCH (23:34)
[2018-03-22] MEDS: Insulin Detemir 100 units/ml Vial (Levemir) SC SCH (23:34)
--- NOTE | 2018-03-23 01:57 | HP ---
HISTORY OF PRESENT ILLNESS: I know Margarito for a few years now. I do house calls on him. He is a 73-year-old white male who is complaining to me on the phone that he just cannot move any more. He feels very weak. He is just not right, he is having pains, he is having a cough, overall just feels bad, and he did not know what to do, so I sent him to the emergency room. PAST MEDICAL HISTORY: He has a past medical history of diabetes, left knee BKA. He has renal failure, acute renal infections in the past. He has diabetes. He has had debridement of the left foot. He has had amputation of the left great and second toes, left BKA. He has had between the groin, extends to between buttocks. He has red skin cellulitis of the hand, left third toe 1 cm wound and numerous skin issues. He had osteomyelitis in the past. He had a left BKA. He had gastritis. Amputation of left two toes, he had a BKA on the left. FAMILY HISTORY: Hypertension and diabetes in the family. SOCIAL HISTORY: Former smoker. He drinks daily lots of beer. No drugs. ALLERGIES: NO KNOWN DRUG ALLERGIES. MEDICATIONS: He takes Abilify, Catapres, Ecotrin, Levemir, Lexapro, Lipitor, Protonix, Tylenol, Ultram, which he do not want to have at this time. REVIEW OF SYSTEMS: No acute vision or hearing changes. He has a cough. No sore throat. Some chest discomfort, but none now. No dyspnea on exertion. He is very weak. No abdominal pain, nausea, vomiting, constipation, diarrhea. No problems urinating. He has right foot and left stump discomfort. No headache or dizziness. No anxiety or depression. No rash. PHYSICAL EXAMINATION: VITAL SIGNS: He has a 98.4 temp, 82 pulse, 18 respiratory rate, 116/60 blood pressure, 98% O2 sat on room air. GENERAL: He is very disheveled, unkempt, not clean. HEENT: Head atraumatic, normocephalic. Poor hygiene. Scaly scalp skin. Extraocular muscles are intact. Pupils equal, reactive to light. Mucous membranes are moist. NECK: Supple. No JVD. HEART: Regular rate. There is a systolic murmur. LUNGS: Decreased breath sounds, clear to auscultation, poor inspiration. ABDOMEN: Soft, nontender. Positive bowel sounds. No guarding, no rebound, no CVA tenderness. EXTREMITIES: He has a left leg amputation, BKA in the left. He has right foot deformity with toes missing. NEUROLOGIC: Alert and oriented x3. Good eye contact. He is very disheveled and unkempt and not doing well. LYMPHS: Thyroid midline. No palpable appreciable lymphadenopathy. LABORATORY DATA: He had multiple tests done. He is negative for flu. He has 140 sodium, potassium 4.3, BUN 36, creatinine 3.0, he has a little bit of acute kidney injury. Sugar is 127, calcium is 8.5, total bili is 0.6. AST is 23, ALT is 19, alk phos is 136. Lactate dehydrogenase is 449. Troponin I is 0.11, elevated. BNP is 8810, elevated. Total protein 7.1. White count 7.7, hemoglobin 15, hematocrit 45.9, platelets 154. Chest x-ray was clear. ASSESSMENT AND PLAN: Margarito Sheffield has an elevated troponin and elevated renal issues with acute kidney injury and just not feeling well. He is going to have consults with Renal and Cardiology. He will be on IV fluids low at 30 mL an hour, Lasix 20 IV Lasix. He will be on insulin coverage, low dose. He will have a diet and physical therapy and will be on observation level of care. Kavon Patiño DO MTD[facility]
[2018-03-23 06:31] LABS: HEMOGLOBIN 13.8 g/dL (14.0-18.0); MEAN CELL VOLUME 90.4 fl (80.0-105.0); MEAN CORPUSCULAR HEMOGLOBIN 29.4 pg (25.0-35.0); MEAN CORPUSCULAR HGB CONC 32.5 g/dl (31.0-37.0); MEAN PLATELET VOLUME 11.1 fl (7.0-11.0); RBC 4.69 10^6/uL (3.5-6.1); RED CELL DISTRIBUTION WIDTH 14.2 % (11.5-14.5); WHITE BLOOD COUNT 6.6 10^3/ul (4.5-11.0)
[2018-03-23 06:55] LABS: TROPONIN I 0.09 ng/mL
[2018-03-23 07:24] LABS: ALB/GLOB RATIO 1.1 (1.1-1.8); ALBUMIN 3.4 g/dL (3.0-4.8); CALCIUM 8.3 mg/dL (8.4-10.5)
--- NOTE | 2018-03-23 07:44 | CARD ---
APPROVED REPORT Date of service: 03/22/2018 EKG Measurement Heart [id number] <Conclusion> Normal sinus rhythm Left ventricular hypertrophy with repolarization abnormality Inferior infarct, age undetermined, new since 08/15/16 PRWP STTW changes, new
[2018-03-23] MEDS: Insulin Reg-LOW-Coverage SC SCH ×4 (08:18→22:30)
[2018-03-23 08:26] LABS: BARBITURATES, UR NEGATIVE (NEGATIVE); BENZODIAZEPINES, UR NEGATIVE (NEGATIVE); OPIATES, UR NEGATIVE (NEGATIVE); PHENCYCLIDINE, UR NEGATIVE (NEGATIVE)
[2018-03-23] MEDS: Pantoprazole 40 mg EC Tab PO SCH (08:34)
[2018-03-23] MEDS: cefTRIAXone 1 gm 1 GM/100 ML BAG IVPB SCH (10:25)
--- NOTE | 2018-03-23 14:15 | PN ---
DATE: 03/23/2018 SUBJECTIVE: I saw him resting comfortably in bed. He is still not feeling well. He is uncomfortable, he feels weak. He wants to go to [facility] for physical therapy before he goes home. He is on Abilify, Catapres, Coreg, Ecotrin, Lasix, Levemir, Lexapro, Lipitor, Protonix, Rocephin, IV fluids and Tylenol. He was originally walking with his prosthesis and a walker and then he got very weak and finally ended up in the ER. He is eating a little bit, he is not feeling well overall. PHYSICAL EXAMINATION: VITAL SIGNS: 98.2 temp, 78 pulse, 170/94 blood pressure, 20 respiratory rate, 96% O2 sat on room air. I have to adjust his medications. HEENT: His head is atraumatic, normocephalic. HEART: Regular rate. LUNGS: Decreased breath sounds. ABDOMEN: Soft, nontender. Positive bowel sounds. EXTREMITIES: He has a BKA on the left. LABORATORY DATA: He has 6.6 white count, 13.8 hemoglobin, 42.4 hematocrit with 141 platelets. 138 sodium, potassium 4.2, BUN 36, creatinine 3, GFR is 21, sugar is 116, calcium is 8.3, total bili is 0.4, AST is 20, ALT is 23, alk phos 116, troponin I is now down to 0.09, BNP is down to 7850. PLAN: I have called in Dr. Whitley, Podiatry. He will continue with Rocephin for UTI, which showed in the urine. Waiting for Cardiology to see him. Podiatry to see him and Renal to see him and hope he will go to [facility]. Kavon Patiño DO
--- NOTE | 2018-03-23 14:55 | US ---
Date of service: 03/23/2018 PROCEDURE: Ultrasound of urinary bladder HISTORY: bladder stone follow up, hematuria COMPARISON: Not available TECHNIQUE: Transabdominal FINDINGS: The distended urinary bladder measures 226 cc volume. Suboptimally distended. Smooth wall. No intraluminal mass. Bilateral ureteral jets are demonstrated. Postvoid residual in the urinary bladder is 53.6 cc. IMPRESSION: 53.6 cc postvoid residual.
--- NOTE | 2018-03-23 15:12 | CP.PCM.CON ---
History of Present Illness - History of Present Illness History of Present Illness: Nephrology Consultation Note: Assessment: Stable ? UTI Hypertensive Chronic Kidney Disease (I12.9) Diabetes mellitus Chronic Kidney Disease (N18.3) Stage 4 with ? proteinuria HTN (I12.9) CHF, chronic alcohol abuse bladder calculus, left BKA and RT foot toe amputations Plan No acute need for renal replacement therapy at this time Hypertension uncontrolled with meds as ordered. Patient not on ACEI/ARB, will add losartan 50 mg/day. Monitor Input/Output, daily weights and renal function with basic metabolic panel continue with IVF podiatry cardiology eval thimaine, FA and MVI added watch for alcohol withdrawal work up as ordered Dose meds/antibiotics for reduced GFR. Avoid fleets enema/magnesium based laxatives. Avoid nephrotoxins/NSAIDs/ iodinated contrast (unless needed emergently) Glycemic control Further work up for as per primary team pt will likely need supervisor/port director care. SW/CM input. Thanks for allowing me to participate in care of your patient. Will follow with you. Please call if any Qs. had d/w team Dr Jose A Burks Office: [phone] Chief Complaint; fatigue reason for consult: DESTIN, CKD 4 HPI: Pt is a 73 y/o M with hx of diabetes Mellitus hypertension, CKD 3 since 2010 now with CKD 4 with baseline cr 2.5-3.0, chronic alcohol abuse, chronic sys CHF with LVEf 402%, bladder calculus, left BKA and RT foot toe amputations came as he was unable to take care of himself further at home and seen in renal consult for DESTIN and CKD management. pt not aware about kidney disease in past. lives alone. admits to daily beer intake. Denies chest pain, shortness of breath. his hx limited and not much reliable ROS: unable to obtain much from pt but he denies SOB/CP/nausea/vomitting. has fatigue and tiredness. also reports difficulty urination with hesitancy. rest all other neg Physical Examination: General Appearance: Comfortable, in no acute respiratory distress, irritable, poor local hygiene and unkempt appearance . Vitals reviewed and noted as below Head; Atraumatic, normocephalic ENT: no ulcers no thrush. Tongue is midline. Oropharynx: no rash or ulcers. EYES: Pupils are equal, round and reactive to light accommodation. Eye muscles and extraocular movement intact. Sclera is anicteric. Neck; supple no lymphadenopathy, no thyromegaly or bruit Lungs: Normal respiratory rate/effort. Breath sounds bilateral equal and wit bibasal crackles Heart: Normal rate. s1s2 normal. No rub or gallop. SM at aortic area + Extremities: no edema. No varicose veins. hands muscle atrophy and arthritic changes noted. left BKA and Rt foot toe amputations Neurological: Patient is alert, awake and oriented. No focal deficit. Strength bilateral appropriate and equal Skin: Warm and dry. Normal turgor. No rash. Palpitation: Normal elasticity for age Abdomen: Abdomen is soft. Bowel sounds +. There is no abdominal tenderness, no guarding/rigidity no organomegaly Psych: lack and normal affect MSK: no joint tenderness or swelling. nails overgrown. : kidney or bladder not palpable Labs/imaging reviewed. Past medical history, past surgical history, family history, social history, allergy reviewed and noted as below Family hx: no hx of CKD. Rest non-contributory UA SG >1.030 100 protein BNP elevated Past Patient History - Infectious Disease Hx of Infectious Diseases: None - Past Social History Smoking Status: Current Some Days Smoker - CARDIAC Hx Cardiac Disorders: Yes Hx Congestive Heart Failure: Yes Hx Hypercholesterolemia: Yes - PULMONARY Hx Respiratory Disorders: No - NEUROLOGICAL Hx Neurological Disorder: No - HEENT Hx HEENT Problems: No - RENAL Hx Chronic Kidney Disease: Yes Hx Renal Failure: Yes - ENDOCRINE/METABOLIC Hx Endocrine Disorders: Yes Hx Diabetes Mellitus Type 2: Yes - HEMATOLOGICAL/ONCOLOGICAL Hx Blood Disorders: No - INTEGUMENTARY Hx Dermatological Problems: Yes (POST I AND D AND DEBRIDEMENT OF LEFT FOOT.11-11-15) Other/Comment: amputation left great/2nd toe,L BKA. 08-15-16 IASD TO INBETWEEN G ROIN EXTENDS TO IN BETWEEN BUTTOCKS AREA,FLUSHED RED SKIN. CELLULITIS OF RIGHT HAND. LEFT 3RD TOE WITH A 1 CM IN DM WOUND WITH ENCRUSTATION.SWELLING,BURGUNDY SKIN COLORE,DENIES PAIN. - MUSCULOSKELETAL/RHEUMATOLOGICAL Hx Musculoskeletal Disorders: Yes (OSTEOMYELITIS) Hx Falls: Yes Hx Osteomyelitis: Yes Other/Comment: L BKA - GASTROINTESTINAL Hx Gastrointestinal Disorders: Yes Hx Gastroesophageal Reflux: Yes - GENITOURINARY/GYNECOLOGICAL Hx Genitourinary Disorders: No - PSYCHIATRIC Hx Psychophysiologic Disorder: Yes Hx Depression: Yes - SURGICAL HISTORY Hx Surgeries: Yes Hx Amputation: Yes (left bka) Other/Comment: amputation left 1/2/ toes bka 03/17/2016 - ANESTHESIA Hx Anesthesia: Yes Hx Anesthesia Reactions: No Hx Malignant Hyperthermia: No Meds Allergies/Adverse Reactions: Allergies Allergy/AdvReac Type Severity Reaction Status Date / Time No Known Allergies Allergy Verified 08/20/16 02:41 - Medications Medications: Current Medications Acetaminophen (Tylenol 325mg Tab) 650 mg PO Q6H PRN PRN Reason: Pain, Mild (1-3) Amlodipine Besylate (Norvasc) 5 mg PO DAILY [facility] Last Admin: 03/23/18 10:06 Dose: Not Given Aripiprazole (Abilify) 5 mg PO HS [facility] Last Admin: 03/22/18 23:33 Dose: 5 mg Aspirin (Ecotrin) 81 mg PO 0800 [facility] Last Admin: 03/23/18 08:35 Dose: Not Given Atorvastatin Calcium (Lipitor) 40 mg PO DIN [facility] Carvedilol (Coreg) 3.125 mg PO BID [facility] Last Admin: 03/23/18 10:05 Dose: Not Given Clonidine HCl (Catapres) 0.2 mg PO BID [facility] Clopidogrel Bisulfate (Plavix) 75 mg PO DAILY [facility] Escitalopram Oxalate (Lexapro) 5 mg PO QAM [facility] Last Admin: 03/23/18 10:06 Dose: Not Given Furosemide (Lasix) 20 mg IVP DAILY [facility] Last Admin: 03/23/18 10:06 Dose: Not Given Sodium Chloride (Sodium Chloride 0.45%) 1,000 mls @ 30 mls/hr IV .Q24H [facility] Last Admin: 03/22/18 17:52 Dose: 30 mls/hr Ceftriaxone Sodium (Rocephin 1 Gram Ivpb) 1 gm in 100 mls @ 100 mls/hr IVPB DAILY [facility]; Protocol Last Admin: 03/23/18 10:25 Dose: 100 mls/hr Insulin Detemir (Levemir) 12 unit SC [facility] Last Admin: 03/22/18 23:34 Dose: 12 unit Insulin Human Regular (Humulin R Low) 0 units SC [facility]; Protocol Last Admin: 03/23/18 13:19 Dose: Not Given Pantoprazole Sodium (Protonix Ec Tab) 40 mg PO ACB [facility] Last Admin: 03/23/18 08:34 Dose: Not Given Tramadol HCl (Ultram) 50 mg PO QID PRN PRN Reason: Pain, moderate (4-7) Last Admin: 03/23/18 10:01 Dose: 50 mg Results - Vital Signs Recent Vital Signs: Last Vital Signs Temp 98.1 F 03/23/18 12:00 Pulse 101 H 03/23/18 12:00 Resp 20 03/23/18 12:00 BP 163/100 H 03/23/18 12:00 Pulse Ox 96 03/23/18 06:00 - Labs Result Diagrams: 03/23/18 06:00 03/23/18 06:00 Labs: Laboratory Results - last 24 hr 03/22/18 03/22/18 03/22/18 15:45 15:45 15:45 WBC 7.7 RBC 5.11 Hgb 15.0 D Hct 45.9 MCV 89.8 MCH 29.4 MCHC 32.7 RDW 13.9 Plt Count 154 MPV 10.9 Gran % 72.0 H Lymph % (Auto) 15.6 L [place] % (Auto) 9.6 H Eos % (Auto) 2.5 Baso % (Auto) 0.3 Gran # 5.53 Lymph # (Auto) 1.2 [place] # (Auto) 0.7 H Eos # (Auto) 0.2 Baso # (Auto) 0.02 Sodium 140 Potassium 4.3 Chloride 110 H Carbon Dioxide 21 Anion Gap 14 BUN 36 H Creatinine 3.0 H Est GFR ( Amer) 25 Est GFR (Non-Af Amer) 21 POC Glucose (mg/dL) Random Glucose 127 H Calcium 8.5 Total Bilirubin 0.6 AST 23 ALT 19 Alkaline Phosphatase 136 H D Lactate Dehydrogenase 449 Total Creatine Kinase 31 L Troponin I 0.11 D NT-Pro-B Natriuret Pep 8810 H Total Protein 7.1 Albumin 3.7 Globulin 3.3 Albumin/Globulin Ratio 1.1 Urine Color Urine Appearance Urine pH Ur Specific [place] Urine Protein Urine Glucose (UA) Urine Ketones Urine Blood Urine Nitrate Urine Bilirubin Urine Urobilinogen Ur Leukocyte Esterase Urine RBC Urine WBC Ur Epithelial Cells Urine Bacteria Urine Opiates Screen Urine Methadone Screen Ur Barbiturates Screen Ur Phencyclidine Scrn Ur Amphetamines Screen U Benzodiazepines Scrn U Oth Cocaine Metabols U Cannabinoids Screen Influenza Typ A,B (EIA) Negative for flu a/b 03/22/18 03/22/18 03/22/18 17:45 20:25 21:55 WBC RBC Hgb Hct MCV MCH MCHC RDW Plt Count MPV Gran % Lymph % (Auto) [place] % (Auto) Eos % (Auto) Baso % (Auto) Gran # Lymph # (Auto) [place] # (Auto) Eos # (Auto) Baso # (Auto) Sodium Potassium Chloride Carbon Dioxide Anion Gap BUN Creatinine Est GFR ( Amer) Est GFR (Non-Af Amer) POC Glucose (mg/dL) 140 H Random Glucose Calcium Total Bilirubin AST ALT Alkaline Phosphatase Lactate Dehydrogenase Total Creatine Kinase Troponin I 0.10 NT-Pro-B Natriuret Pep 7850 H Total Protein Albumin Globulin Albumin/Globulin Ratio Urine Color Yellow Urine Appearance Slight-cloudy Urine pH 6.0 Ur Specific [place] >= 1.030 Urine Protein 100 H Urine Glucose (UA) 100 H Urine Ketones Negative Urine Blood Small H Urine Nitrate Negative Urine Bilirubin Negative Urine Urobilinogen 0.2 Ur Leukocyte Esterase Large H Urine RBC 1 - 3 Urine WBC 2 - 5 Ur Epithelial Cells None Urine Bacteria Neg Urine Opiates Screen Urine Methadone Screen Ur Barbiturates Screen Ur Phencyclidine Scrn Ur Amphetamines Screen U Benzodiazepines Scrn U Oth Cocaine Metabols U Cannabinoids Screen Influenza Typ A,B (EIA) 03/22/18 03/23/18 03/23/18 23:22 06:00 06:00 WBC 6.6 RBC 4.69 Hgb 13.8 L Hct 42.4 MCV 90.4 MCH 29.4 MCHC 32.5 RDW 14.2 Plt Count 141 MPV 11.1 H Gran % Lymph % (Auto) [place] % (Auto) Eos % (Auto) Baso % (Auto) Gran # Lymph # (Auto) [place] # (Auto) Eos # (Auto) Baso # (Auto) Sodium 138 Potassium 4.2 Chloride 108 H Carbon Dioxide 23 Anion Gap 12 BUN 36 H Creatinine 3.0 H Est GFR ( Amer) 25 Est GFR (Non-Af Amer) 21 POC Glucose (mg/dL) 155 H Random Glucose 116 H Calcium 8.3 L Total Bilirubin 0.4 AST 20 ALT 23 Alkaline Phosphatase 116 Lactate Dehydrogenase Total Creatine Kinase Troponin I 0.09 NT-Pro-B Natriuret Pep Total Protein 6.5 Albumin 3.4 Globulin 3.1 Albumin/Globulin Ratio 1.1 Urine Color Urine Appearance Urine pH Ur Specific [place] Urine Protein Urine Glucose (UA) Urine Ketones Urine Blood Urine Nitrate Urine Bilirubin Urine Urobilinogen Ur Leukocyte Esterase Urine RBC Urine WBC Ur Epithelial Cells Urine Bacteria Urine Opiates Screen Urine Methadone Screen Ur Barbiturates Screen Ur Phencyclidine Scrn Ur Amphetamines Screen U Benzodiazepines Scrn U Oth Cocaine Metabols U Cannabinoids Screen Influenza Typ A,B (EIA) 03/23/18 07:41 WBC RBC Hgb Hct MCV MCH MCHC RDW Plt Count MPV Gran % Lymph % (Auto) [place] % (Auto) Eos % (Auto) Baso % (Auto) Gran # Lymph # (Auto) [place] # (Auto) Eos # (Auto) Baso # (Auto) Sodium Potassium Chloride Carbon Dioxide Anion Gap BUN Creatinine Est GFR ( Amer) Est GFR (Non-Af Amer) POC Glucose (mg/dL) Random Glucose Calcium Total Bilirubin AST ALT Alkaline Phosphatase Lactate Dehydrogenase Total Creatine Kinase Troponin I NT-Pro-B Natriuret Pep Total Protein Albumin Globulin Albumin/Globulin Ratio Urine Color Urine Appearance Urine pH Ur Specific [place] Urine Protein Urine Glucose (UA) Urine Ketones Urine Blood Urine Nitrate Urine Bilirubin Urine Urobilinogen Ur Leukocyte Esterase Urine RBC Urine WBC Ur Epithelial Cells Urine Bacteria Urine Opiates Screen Negative Urine Methadone Screen Negative Ur Barbiturates Screen Negative Ur Phencyclidine Scrn Negative Ur Amphetamines Screen Negative U Benzodiazepines Scrn Negative U Oth Cocaine Metabols Negative U Cannabinoids Screen Negative Influenza Typ A,B (EIA)
--- NOTE | 2018-03-23 15:54 | US ---
Date of service: 03/23/2018 PROCEDURE: Ultrasound of the Kidneys HISTORY: DESTIN COMPARISON: None available. TECHNIQUE: Sonogram of the kidneys. FINDINGS: RIGHT KIDNEY: Measures: 8.6 cm. Normal in size, contour and echogenicity. No stone, solid mass lesion or hydronephrosis visualized. LEFT KIDNEY: Measures: 9.4 cm. Normal in size, contour and echogenicity. Mid renal cortical cyst, 1.6 cm. No solid mass. There is a nodular calcification along the wall of this cyst. 6 mm nodular calcification lower pole left kidney, nonobstructing. No hydronephrosis. OTHER FINDINGS: None. IMPRESSION: Simple left renal cortical cyst. Nonobstructing small left lower pole renal calcification. Otherwise unremarkable.
--- NOTE | 2018-03-23 16:11 | CP.PCM.CON ---
History of Present Illness - History of Present Illness History of Present Illness: Podiatry consult note for Dr. Whitley/Dr. Hernandez, Patient is a 73 year old male, with past medical history of diabetes and BKA of the left knee, seen at bedside for bilateral leg pain. Patient states he has had heel pain that has been really painful. Left BKA has been painful as well. Staes dr. Patiño had initially given him tramadol which helped with the pain, however after he ran out of the medications he has been in severe pain and presented to the ED for that reason. States he is able to ambulate without any difficulty with his prosthesis and pain is noted mainly while laying in bed. Denies fevers or chills currently. Denies right leg swelling or redness. Denies recent trauma. PMD: Dr. Kavon Patiño Past Patient History - Infectious Disease Hx of Infectious Diseases: None - Past Social History Smoking Status: Current Some Days Smoker - CARDIAC Hx Cardiac Disorders: Yes Hx Congestive Heart Failure: Yes Hx Hypercholesterolemia: Yes - PULMONARY Hx Respiratory Disorders: No - NEUROLOGICAL Hx Neurological Disorder: No - HEENT Hx HEENT Problems: No - RENAL Hx Chronic Kidney Disease: Yes Hx Renal Failure: Yes - ENDOCRINE/METABOLIC Hx Endocrine Disorders: Yes Hx Diabetes Mellitus Type 2: Yes - HEMATOLOGICAL/ONCOLOGICAL Hx Blood Disorders: No - INTEGUMENTARY Hx Dermatological Problems: Yes (POST I AND D AND DEBRIDEMENT OF LEFT FOOT.11-11-15) Other/Comment: amputation left great/2nd toe,L BKA. 08-15-16 IASD TO INBETWEEN GROIN EXTENDS TO IN BETWEEN BUTTOCKS AREA,FLUSHED RED SKIN. CELLULITIS OF RIGHT HAND. LEFT 3RD TOE WITH A 1 CM IN DM WOUND WITH ENCRUSTATION.SWELLING,BURGUNDY SKIN COLORE,DENIES PAIN. - MUSCULOSKELETAL/RHEUMATOLOGICAL Hx Musculoskeletal Disorders: Yes (OSTEOMYELITIS) Hx Falls: Yes Hx Osteomyelitis: Yes Other/Comment: L BKA - GASTROINTESTINAL Hx Gastrointestinal Disorders: Yes Hx Gastroesophageal Reflux: Yes - GENITOURINARY/GYNECOLOGICAL Hx Genitourinary Disorders: No - PSYCHIATRIC Hx Psychophysiologic Disorder: Yes Hx Depression: Yes - SURGICAL HISTORY Hx Surgeries: Yes Hx Amputation: Yes (left bka) Other/Comment: amputation left 1/2/ toes bka 03/17/2016 - ANESTHESIA Hx Anesthesia: Yes Hx Anesthesia Reactions: No Hx Malignant Hyperthermia: No Meds Allergies/Adverse Reactions: Allergies Allergy/AdvReac Type Severity Reaction Status Date / Time No Known Allergies Allergy Verified 08/20/16 02:41 - Medications Medications: Current Medications Acetaminophen (Tylenol 325mg Tab) 650 mg PO Q6H PRN PRN Reason: Pain, Mild (1-3) Amlodipine Besylate (Norvasc) 10 mg PO DAILY [facility] Aripiprazole (Abilify) 5 mg PO HS [facility] Last Admin: 03/22/18 23:33 Dose: 5 mg Aspirin (Ecotrin) 81 mg PO 0800 [facility] Last Admin: 03/23/18 08:35 Dose: Not Given Atorvastatin Calcium (Lipitor) 40 mg PO DIN [facility] Carvedilol (Coreg) 3.125 mg PO BID [facility] Last Admin: 03/23/18 10:05 Dose: Not Given Clonidine HCl (Catapres) 0.2 mg PO BID [facility] Clopidogrel Bisulfate (Plavix) 75 mg PO DAILY [facility] Last Admin: 03/23/18 15:41 Dose: Not Given Escitalopram Oxalate (Lexapro) 5 mg PO QAM [facility] Last Admin: 03/23/18 10:06 Dose: Not Given Folic Acid (Folic Acid) 1 mg PO DAILY [facility] Last Admin: 03/23/18 15:56 Dose: Not Given Furosemide (Lasix) 20 mg IVP DAILY [facility] Last Admin: 03/23/18 10:06 Dose: Not Given Sodium Chloride (Sodium Chloride 0.45%) 1,000 mls @ 30 mls/hr IV .Q24H [facility] Last Admin: 03/22/18 17:52 Dose: 30 mls/hr Ceftriaxone Sodium (Rocephin 1 Gram Ivpb) 1 gm in 100 mls @ 100 mls/hr IVPB DAILY [facility]; Protocol Last Admin: 03/23/18 10:25 Dose: 100 mls/hr Insulin Detemir (Levemir) 12 unit SC HS [facility] Last Admin: 03/22/18 23:34 Dose: 12 unit Insulin Human Regular (Humulin R Low) 0 units SC [facility]; Protocol Last Admin: 03/23/18 13:19 Dose: Not Given Losartan Potassium (Cozaar) 50 mg PO DAILY [facility] Last Admin: 03/23/18 15:55 Dose: Not Given Pantoprazole Sodium (Protonix Ec Tab) 40 mg PO ACB [facility] Last Admin: 03/23/18 08:34 Dose: Not Given Thiamine HCl (Vitamin B1 Tab) 100 mg PO DAILY [facility] Last Admin: 03/23/18 15:56 Dose: Not Given Tramadol HCl (Ultram) 50 mg PO QID PRN PRN Reason: Pain, moderate (4-7) Last Admin: 03/23/18 10:01 Dose: 50 mg Vitamin B Complex/Vit C/Folic Acid (Nephro-Leo) 1 tab PO 0800 [facility] Physical Exam - Constitutional Appears: Well, Non-toxic, No Acute Distress - Extremities Exam Additional comments: Right lower extremity exam: Vascular: pulses faintly palpable, CFT <3 secs x2, TG warm to cool, no edema or erythema noted in the foot neuro: protective sensation grossly intact derm: no open lesions, xerosis of dorsal and plantar skin noted, no ecchymosis, no clinical signs of infection ortho: no pain on palpation to the heel or the foot. No pain with ROM of the ankle or foot joints. - Neurological Exam Neurological exam: Alert, Oriented x3 - Psychiatric Exam Psychiatric exam: Normal Affect Results - Vital Signs Recent Vital Signs: Last Vital Signs Temp 98.1 F 03/23/18 12:00 Pulse 82 03/23/18 15:55 Resp 20 03/23/18 12:00 BP 188/112 H 03/23/18 15:55 Pulse Ox 96 03/23/18 06:00 - Labs Result Diagrams: 03/23/18 06:00 03/23/18 06:00 Labs: Laboratory Results - last 24 hr 03/22/18 03/22/18 03/22/18 15:45 15:45 15:45 WBC 7.7 RBC 5.11 Hgb 15.0 D Hct 45.9 MCV 89.8 MCH 29.4 MCHC 32.7 RDW 13.9 Plt Count 154 MPV 10.9 Gran % 72.0 H Lymph % (Auto) 15.6 L [place] % (Auto) 9.6 H Eos % (Auto) 2.5 Baso % (Auto) 0.3 Gran # 5.53 Lymph # (Auto) 1.2 [place] # (Auto) 0.7 H Eos # (Auto) 0.2 Baso # (Auto) 0.02 Sodium 140 Potassium 4.3 Chloride 110 H Carbon Dioxide 21 Anion Gap 14 BUN 36 H Creatinine 3.0 H Est GFR ( Amer) 25 Est GFR (Non-Af Amer) 21 POC Glucose (mg/dL) Random Glucose 127 H Calcium 8.5 Total Bilirubin 0.6 AST 23 ALT 19 Alkaline Phosphatase 136 H D Lactate Dehydrogenase 449 Total Creatine Kinase 31 L Troponin I 0.11 D NT-Pro-B Natriuret Pep 8810 H Total Protein 7.1 Albumin 3.7 Globulin 3.3 Albumin/Globulin Ratio 1.1 Urine Color Urine Appearance Urine pH Ur Specific [place] Urine Protein Urine Glucose (UA) Urine Ketones Urine Blood Urine Nitrate Urine Bilirubin Urine Urobilinogen Ur Leukocyte Esterase Urine RBC Urine WBC Ur Epithelial Cells Urine Bacteria Urine Opiates Screen Urine Methadone Screen Ur Barbiturates Screen Ur Phencyclidine Scrn Ur Amphetamines Screen U Benzodiazepines Scrn U Oth Cocaine Metabols U Cannabinoids Screen Influenza Typ A,B (EIA) Negative for flu a/b 03/22/18 03/22/18 03/22/18 17:45 20:25 21:55 WBC RBC Hgb Hct MCV MCH MCHC RDW Plt Count MPV Gran % Lymph % (Auto) [place] % (Auto) Eos % (Auto) Baso % (Auto) Gran # Lymph # (Auto) [place] # (Auto) Eos # (Auto) Baso # (Auto) Sodium Potassium Chloride Carbon Dioxide Anion Gap BUN Creatinine Est GFR ( Amer) Est GFR (Non-Af Amer) POC Glucose (mg/dL) 140 H Random Glucose Calcium Total Bilirubin AST ALT Alkaline Phosphatase Lactate Dehydrogenase Total Creatine Kinase Troponin I 0.10 NT-Pro-B Natriuret Pep 7850 H Total Protein Albumin Globulin Albumin/Globulin Ratio Urine Color Yellow Urine Appearance Slight-cloudy Urine pH 6.0 Ur Specific [place] >= 1.030 Urine Protein 100 H Urine Glucose (UA) 100 H Urine Ketones Negative Urine Blood Small H Urine Nitrate Negative Urine Bilirubin Negative Urine Urobilinogen 0.2 Ur Leukocyte Esterase Large H Urine RBC 1 - 3 Urine WBC 2 - 5 Ur Epithelial Cells None Urine Bacteria Neg Urine Opiates Screen Urine Methadone Screen Ur Barbiturates Screen Ur Phencyclidine Scrn Ur Amphetamines Screen U Benzodiazepines Scrn U Oth Cocaine Metabols U Cannabinoids Screen Influenza Typ A,B (EIA) 03/22/18 03/23/18 03/23/18 23:22 06:00 06:00 WBC 6.6 RBC 4.69 Hgb 13.8 L Hct 42.4 MCV 90.4 MCH 29.4 MCHC 32.5 RDW 14.2 Plt Count 141 MPV 11.1 H Gran % Lymph % (Auto) [place] % (Auto) Eos % (Auto) Baso % (Auto) Gran # Lymph # (Auto) [place] # (Auto) Eos # (Auto) Baso # (Auto) Sodium 138 Potassium 4.2 Chloride 108 H Carbon Dioxide 23 Anion Gap 12 BUN 36 H Creatinine 3.0 H Est GFR ( Amer) 25 Est GFR (Non-Af Amer) 21 POC Glucose (mg/dL) 155 H Random Glucose 116 H Calcium 8.3 L Total Bilirubin 0.4 AST 20 ALT 23 Alkaline Phosphatase 116 Lactate Dehydrogenase Total Creatine Kinase Troponin I 0.09 NT-Pro-B Natriuret Pep Total Protein 6.5 Albumin 3.4 Globulin 3.1 Albumin/Globulin Ratio 1.1 Urine Color Urine Appearance Urine pH Ur Specific [place] Urine Protein Urine Glucose (UA) Urine Ketones Urine Blood Urine Nitrate Urine Bilirubin Urine Urobilinogen Ur Leukocyte Esterase Urine RBC Urine WBC Ur Epithelial Cells Urine Bacteria Urine Opiates Screen Urine Methadone Screen Ur Barbiturates Screen Ur Phencyclidine Scrn Ur Amphetamines Screen U Benzodiazepines Scrn U Oth Cocaine Metabols U Cannabinoids Screen Influenza Typ A,B (EIA) 03/23/18 07:41 WBC RBC Hgb Hct MCV MCH MCHC RDW Plt Count MPV Gran % Lymph % (Auto) [place] % (Auto) Eos % (Auto) Baso % (Auto) Gran # Lymph # (Auto) [place] # (Auto) Eos # (Auto) Baso # (Auto) Sodium Potassium Chloride Carbon Dioxide Anion Gap BUN Creatinine Est GFR ( Amer) Est GFR (Non-Af Amer) POC Glucose (mg/dL) Random Glucose Calcium Total Bilirubin AST ALT Alkaline Phosphatase Lactate Dehydrogenase Total Creatine Kinase Troponin I NT-Pro-B Natriuret Pep Total Protein Albumin Globulin Albumin/Globulin Ratio Urine Color Urine Appearance Urine pH Ur Specific [place] Urine Protein Urine Glucose (UA) Urine Ketones Urine Blood Urine Nitrate Urine Bilirubin Urine Urobilinogen Ur Leukocyte Esterase Urine RBC Urine WBC Ur Epithelial Cells Urine Bacteria Urine Opiates Screen Negative Urine Methadone Screen Negative Ur Barbiturates Screen Negative Ur Phencyclidine Scrn Negative Ur Amphetamines Screen Negative U Benzodiazepines Scrn Negative U Oth Cocaine Metabols Negative U Cannabinoids Screen Negative Influenza Typ A,B (EIA) Assessment & Plan - Assessment and Plan (Free Text) Assessment: 73 yo male seen at bedside for right heel pain. Plan: Patient seen and evaluated charts, labs and vitals reviewed; afebrile 6.6 WBC Multipodus boots ordered for the patient, to be kept on at all times while laying in bed Patient advised to follow up with a customer service attendant once discharged Patient showed verbal understnading All questions were answered Podiatry will sign off; please reconsult if needed Thank you for the consult.
[2018-03-23] MEDS: Sodium Chloride 0.45% 1,000 ML IV SCH (17:19)
[2018-03-23] MEDS: Insulin Detemir 100 units/ml Vial (Levemir) SC SCH (22:31)
--- NOTE | 2018-03-24 00:46 | CON ---
DATE: 03/23/2018 HISTORY: The patient is a 73-year-old male who presents with complaints of lower leg discomfort. The patient's past medical history includes a history of diabetes mellitus as well as BKA in the lower extremities. He denies previous cardiac issues. He denies chest pain, denies shortness of breath. SOCIAL HISTORY: The patient is a former smoker, which he states he stopped many years ago. He has documented peripheral vascular disease. His last workup was last year, which included an echocardiogram which showed an ejection fraction of 42%. History of mild pulmonary hypertension. Currently, the patient is in bed. REVIEW OF SYSTEMS: A 14-point review of systems is reviewed in detail. No cardiac symptomatology is noted. PHYSICAL EXAMINATION: VITAL SIGNS: Blood pressure is 163/100, the heart rate is 100. NECK: Negative JVD. LUNGS: Decreased breath sounds. HEART: Reveals S1, S2. EXTREMITIES: Status post BKA. EKG shows normal sinus rhythm with abnormal ST-T changes. LABORATORY DATA: Hemoglobin is 13.9, white count is 6.6, BUN and creatinine 36 and 3 with a glucose of 116. Troponin is 0.09. IMPRESSION: 1. [id number]-[id number] myocardial infarction. 2. Chronic renal insufficiency with troponins that were elevated from his baseline troponin of 0.02. 3. Status post below-knee amputations of both lower extremities. 4. Documented peripheral vascular disease. 5. High probability for coronary artery disease. 6. Hypercholesterolemia. 7. Hypertension. Given these findings, we will increase his clonidine to 0.2 mg b.i.d. The patient is already on beta-blockers and aspirin. We will start the patient on anticoagulation. Sanju Cobos MD
[2018-03-24 06:34] LABS: ALB/GLOB RATIO 1.1 (1.1-1.8); ALBUMIN 3.5 g/dL (3.0-4.8); CALCIUM 8.5 mg/dL (8.4-10.5)
[2018-03-24 06:38] LABS: HEMOGLOBIN 13.7 g/dL (14.0-18.0); MEAN CELL VOLUME 89.7 fl (80.0-105.0); MEAN CORPUSCULAR HEMOGLOBIN 29.5 pg (25.0-35.0); MEAN CORPUSCULAR HGB CONC 32.9 g/dl (31.0-37.0); MEAN PLATELET VOLUME 10.9 fl (7.0-11.0); RBC 4.64 10^6/uL (3.5-6.1); WHITE BLOOD COUNT 6.9 10^3/ul (4.5-11.0)
[2018-03-24] MEDS: Insulin Reg-LOW-Coverage SC SCH ×4 (08:21→21:52)
--- NOTE | 2018-03-24 08:22 | PN ---
DATE: 03/24/2018 SUBJECTIVE: He is resting comfortably in bed. May be a little bit better today than yesterday. He is refusing his medications. I tried to talk to him about that. He just tells me he do not want to take them, but I discussed his blood pressure is being elevated. I will put him on a Catapres patch. I am going to increase it to 0.2 because the 0.1 are not working. He will continue with his other medications. He has IV fluids running. He does not have much of an appetite, he tells me. He has a 98.7 temp, 85 pulse, 174/94 blood pressure that is why I increased the Catapres patch from 0.1 to 0.2, 18 respiratory rate, 95% O2 sat on room air. There are consults for GI for poor appetite, Renal for his elevated BUN and creatinine, Podiatry for his bad feet and Dr. Cobos for his elevated troponin. He was seen by Dr. Cobos. He called it a non-STEMI. He just wants him to have more clonidine. I increased his clonidine to 0.2 patch, he refuses the pills. He is already on the beta blockers and the aspirin. The resident, I believe from Podiatry, saw the patient. He has got Multi Podus boots on. Renal saw the patient. He has an ultrasound of the bladder and the kidney. He has a kidney stone, nonobstructing the bladder. Just 53.6 mL postvoid residual. I am hoping that Renal could help me with his elevated BUN and creatinine. This might just be his end-staged renal disease. He used to walk around with a prosthesis because of his left BKA and a walker. Now, he cannot do that. He got quite weak. I am waiting for Physical Therapy to see him. I think he needs [facility], may be [facility] could be the place for him to go. Tomorrow, we will give the date to discharge him. LABORATORY DATA: He has a 138 sodium, potassium 4.7, BUN 36, creatinine 3, which is basically the same thing he has had 3 days in a row. GFR is 21, calcium is 81, sugar is 89, phosphorus is 4.3, total bili is 0.8, AST is 23, ALT is 20, alk phos 118, total protein 6.8, TSH is 4.49. White count 6.9, hemoglobin 13.7, hematocrit 41.6, platelets of 148. Urine had large leukocytes. Negative for urine bacteria. MEDICATIONS: He is currently on Abilify, Catapres patch, Coreg, Cozaar, Ecotrin, folic acid, Lasix IV, Levemir, Lexapro, Lipitor, Nephro-Leo, Norvasc, Plavix, Protonix, Rocephin, IV fluids, Tylenol, Ultram and vitamin B1. ASSESSMENT AND PLAN: I am not sure if he is taking all these medications. I think he takes and chews what he wants to take. He had an [id number] myocardial infarction, urinary tract infection, left below-knee amputation. He is weak. Renal, acute kidney injury, acute kidney disease. I think he needs to go to subacute rehabilitation tomorrow to get him stronger before he goes home. Kavon Patiño DO
[2018-03-24] MEDS: Pantoprazole 40 mg EC Tab PO SCH (08:30)
[2018-03-24] MEDS: Multivitamin Vitamin B Complex (Nephro-Vite) Tab PO SCH (08:30)
--- NOTE | 2018-03-24 09:06 | CP.PCM.CON ---
<Wu Roper - Last Filed: 03/24/18 15:43> History of Present Illness - History of Present Illness History of Present Illness: PGY-4 GI Fellow Consult Note Pt is 73 yo WM with h/o CHF (EF 42% July 2016), DM (complicated by CKD, skin infections and osteomyelitis s/p toe amps and L BKA) who was admitted on 03/22 for generalized pain and weakness complaint with subsequently had treatment for CKD, NSTEMI with diuresis and possible UTI treatment. GI later consulted for decreased appetite. Pt states that he has not had appetite for some 20+ years. He denies that symptoms are acutely worse. He states that he normally eats about 2 meals per day "only in order to survive." He also thinks that some of his medications may be contributing but he again reports that it's not atypical for him to not eat much. He denies any dysphagia, n/v, weight loss, odynophagia, abd pain. He states that he moves his bowels daily without difficulty and had not noticed any black or red stools, though he states that he doesn't look much. Never had any prior endoscopic evaluations. 12 point ROS negative other than stated above MHx: See above SurgHx: L BKA, toe amps, skin debridements Meds: Reviewed in MAR FamHx: Denied any GI problems SocHx: Former smoker, daily "several" beer drinker. Denied illicits. All: NKDA Past Patient History - Infectious Disease Hx of Infectious Diseases: None - Past Social History Smoking Status: Current Some Days Smoker - CARDIAC Hx Cardiac Disorders: Yes Hx Congestive Heart Failure: Yes Hx Hypercholesterolemia: Yes - PULMONARY Hx Respiratory Disorders: No - NEUROLOGICAL Hx Neurological Disorder: No - HEENT Hx HEENT Problems: No - RENAL Hx Chronic Kidney Disease: Yes Hx Renal Failure: Yes - ENDOCRINE/METABOLIC Hx Endocrine Disorders: Yes Hx Diabetes Mellitus Type 2: Yes - HEMATOLOGICAL/ONCOLOGICAL Hx Blood Disorders: No - INTEGUMENTARY Hx Dermatological Problems: Yes (POST I AND D AND DEBRIDEMENT OF LEFT FOOT.11-11-15) Other/Comment: amputation left great/2nd toe,L BKA. 08-15-16 IASD TO INBETWEEN GROIN EXTENDS TO IN BETWEEN BUTTOCKS AREA,FLUSHED RED SKIN. CELLULITIS OF RIGHT HAND. LEFT 3RD TOE WITH A 1 CM IN DM WOUND WITH ENCRUSTATION.SWELLING,BURGUNDY SKIN COLORE,DENIES PAIN. - MUSCULOSKELETAL/RHEUMATOLOGICAL Hx Musculoskeletal Disorders: Yes (OSTEOMYELITIS) Hx Falls: Yes Hx Osteomyelitis: Yes Other/Comment: L BKA - GASTROINTESTINAL Hx Gastrointestinal Disorders: Yes Hx Gastroesophageal Reflux: Yes - GENITOURINARY/GYNECOLOGICAL Hx Genitourinary Disorders: No - PSYCHIATRIC Hx Psychophysiologic Disorder: Yes Hx Depression: Yes - SURGICAL HISTORY Hx Surgeries: Yes Hx Amputation: Yes (left bka) Other/Comment: amputation left 1/2/ toes bka 03/17/2016 - ANESTHESIA Hx Anesthesia: Yes Hx Anesthesia Reactions: No Hx Malignant Hyperthermia: No Meds Allergies/Adverse Reactions: Allergies Allergy/AdvReac Type Severity Reaction Status Date / Time No Known Allergies Allergy Verified 08/20/16 02:41 - Medications Medications: Current Medications Acetaminophen (Tylenol 325mg Tab) 650 mg PO Q6H PRN PRN Reason: Pain, Mild (1-3) Amlodipine Besylate (Norvasc) 10 mg PO DAILY [facility] Aripiprazole (Abilify) 5 mg PO HS [facility] Last Admin: 03/23/18 22:30 Dose: Not Given Aspirin (Ecotrin) 81 mg PO 0800 [facility] Last Admin: 03/24/18 08:30 Dose: Not Given Atorvastatin Calcium (Lipitor) 40 mg PO DIN [facility] Last Admin: 03/23/18 17:17 Dose: Not Given Carvedilol (Coreg) 3.125 mg PO BID [facility] Last Admin: 03/23/18 17:20 Dose: Not Given Clonidine HCl (Catapres-Tts2 0.2 Mg/24 Hr) 1 patch TD Q7D@1000 [facility] Last Admin: 03/24/18 08:31 Dose: 1 patch Clopidogrel Bisulfate (Plavix) 75 mg PO DAILY [facility] Last Admin: 03/23/18 15:41 Dose: Not Given Escitalopram Oxalate (Lexapro) 5 mg PO QAM [facility] Last Admin: 03/23/18 10:06 Dose: Not Given Folic Acid (Folic Acid) 1 mg PO DAILY [facility] Last Admin: 03/23/18 15:56 Dose: Not Given Furosemide (Lasix) 20 mg IVP DAILY [facility] Last Admin: 03/23/18 10:06 Dose: Not Given Sodium Chloride (Sodium Chloride 0.45%) 1,000 mls @ 30 mls/hr IV .Q24H [facility] Last Admin: 03/23/18 17:19 Dose: 30 mls/hr Ceftriaxone Sodium (Rocephin 1 Gram Ivpb) 1 gm in 100 mls @ 100 mls/hr IVPB DAILY [facility]; Protocol Last Admin: 03/23/18 10:25 Dose: 100 mls/hr Insulin Detemir (Levemir) 12 unit SC HS [facility] Last Admin: 03/23/18 22:31 Dose: Not Given Insulin Human Regular (Humulin R Low) 0 units SC ACHS [facility]; Protocol Last Admin: 03/24/18 08:21 Dose: Not Given Losartan Potassium (Cozaar) 50 mg PO DAILY [facility] Last Admin: 03/23/18 15:55 Dose: Not Given Pantoprazole Sodium (Protonix Ec Tab) 40 mg PO ACB [facility] Last Admin: 03/24/18 08:30 Dose: Not Given Thiamine HCl (Vitamin B1 Tab) 100 mg PO DAILY [facility] Last Admin: 03/23/18 15:56 Dose: Not Given Tramadol HCl (Ultram) 50 mg PO QID PRN PRN Reason: Pain, moderate (4-7) Last Admin: 03/24/18 05:01 Dose: 50 mg Vitamin B Complex/Vit C/Folic Acid (Nephro-Leo) 1 tab PO 0800 [facility] Last Admin: 03/24/18 08:30 Dose: Not Given Physical Exam - Constitutional Appears: No Acute Distress, Unkempt, Chronically Ill - Head Exam Head Exam: ATRAUMATIC Additional comments: dry, flaky skin - Eye Exam Eye Exam: EOMI. absent: Conjunctival injection, Scleral icterus - ENT Exam ENT Exam: Mucous Membranes Moist, Normal External Ear Exam. absent: Mucous Membranes Dry - Respiratory Exam Respiratory Exam: Clear to Auscultation Bilateral, NORMAL BREATHING PATTERN. absent: Accessory Muscle Use, Respiratory Distress - GI/Abdominal Exam GI & Abdominal Exam: Normal Bowel Sounds, Soft. absent: Bruit, Diminished Bowel Sounds, Distended, Firm, Guarding, Hernia, Mass, Organomegaly, Pulsatile Mass, Rebound, Rigid, Tenderness - Rectal Exam Rectal Exam: Deferred - Extremities Exam Additional comments: L BKA, toe amps on R - Neurological Exam Neurological exam: Alert, CN II-XII Intact - Psychiatric Exam Psychiatric exam: Normal Affect, Normal Mood - Skin Skin Exam: Normal Color, Warm Results - Vital Signs Recent Vital Signs: Last Vital Signs Temp 97.7 F 03/24/18 06:00 Pulse 80 03/24/18 08:31 Resp 18 03/24/18 06:00 BP 185/70 H 03/24/18 08:31 Pulse Ox 95 03/24/18 06:00 - Labs Result Diagrams: 03/24/18 05:45 03/24/18 05:45 Labs: Laboratory Results - last 24 hr 03/22/18 03/22/18 03/23/18 20:25 23:22 07:11 WBC RBC Hgb Hct MCV MCH MCHC RDW Plt Count MPV Sodium Potassium Chloride Carbon Dioxide Anion Gap BUN Creatinine Est GFR ( Amer) Est GFR (Non-Af Amer) POC Glucose (mg/dL) 140 H 155 H 109 Random Glucose Calcium Phosphorus Total Bilirubin AST ALT Alkaline Phosphatase Total Protein Albumin Globulin Albumin/Globulin Ratio [facility] 3rd Generation 03/23/18 03/23/18 03/23/18 11:02 16:40 21:39 WBC RBC Hgb Hct MCV MCH MCHC RDW Plt Count MPV Sodium Potassium Chloride Carbon Dioxide Anion Gap BUN Creatinine Est GFR ( Amer) Est GFR (Non-Af Amer) POC Glucose (mg/dL) 157 H 96 89 Random Glucose Calcium Phosphorus Total Bilirubin AST ALT Alkaline Phosphatase Total Protein Albumin Globulin Albumin/Globulin Ratio [facility] 3rd Generation 03/24/18 03/24/18 03/24/18 05:45 05:45 05:45 WBC 6.9 RBC 4.64 Hgb 13.7 L Hct 41.6 L MCV 89.7 MCH 29.5 MCHC 32.9 RDW 14.0 Plt Count 148 MPV 10.9 Sodium 138 Potassium 4.7 Chloride 108 H Carbon Dioxide 20 L Anion Gap 16 BUN 36 H Creatinine 3.0 H Est GFR ( Amer) 25 Est GFR (Non-Af Amer) 21 POC Glucose (mg/dL) Random Glucose 81 Calcium 8.5 Phosphorus 4.3 Total Bilirubin 0.8 AST 23 ALT 20 Alkaline Phosphatase 118 Total Protein 6.8 Albumin 3.5 Globulin 3.3 Albumin/Globulin Ratio 1.1 TSH 3rd Generation 4.49 03/24/18 07:25 WBC RBC Hgb Hct MCV MCH MCHC RDW Plt Count MPV Sodium Potassium Chloride Carbon Dioxide Anion Gap BUN Creatinine Est GFR ( Amer) Est GFR (Non-Af Amer) POC Glucose (mg/dL) 83 Random Glucose Calcium Phosphorus Total Bilirubin AST ALT Alkaline Phosphatase Total Protein Albumin Globulin Albumin/Globulin Ratio TSH 3rd Generation Assessment & Plan - Assessment and Plan (Free Text) Assessment: 73 yo WM with h/o DM, CKD, CHF presenting with generalized pain complaints. GI consulted for decreased appetite. # Decreased appetite: Chronic issue for patient x 20+ years. Pt reports eating 2 meals per day without any difficulty. Weight has been stable. No family h/o GI malignancy nor signs of anemia on labs. Pt is also on medications that could decreased appetite, like aripirazole or less commonly clonidine. Plan: - If desired by patient and physicians, can perhaps trial another medication other than aripiprazole - No plans for endoscopic evaluation at this time - Can consider outpatient Colonoscopy if desired by patient, recommended to patient at bedside - Social work evaluation, especially considering EtOH abuse - Counseled to decrease, ideally cease alcohol consumption Pt discussed with Dr. Steen. See attestation for further recs/changes. <Bong Steen Y - Last Filed: 03/24/18 15:58> Meds - Medications Medications: Current Medications Acetaminophen (Tylenol 325mg Tab) 650 mg PO Q6H PRN PRN Reason: Pain, Mild (1-3) Amlodipine Besylate (Norvasc) 10 mg PO DAILY [facility] Last Admin: 03/24/18 10:08 Dose: Not Given Aripiprazole (Abilify) 5 mg PO HS [facility] Last Admin: 03/23/18 22:30 Dose: Not Given Aspirin (Ecotrin) 81 mg PO 0800 [facility] Last Admin: 03/24/18 08:30 Dose: Not Given Atorvastatin Calcium (Lipitor) 40 mg PO DIN [facility] Last Admin: 03/23/18 17:17 Dose: Not Given Carvedilol (Coreg) 3.125 mg PO BID [facility] Last Admin: 03/24/18 10:07 Dose: Not Given Clonidine HCl (Catapres-Tts3 0.3 Mg/24 Hr) 1 patch TD Q7D@1000 [facility] Last Admin: 03/24/18 12:36 Dose: 1 patch Clopidogrel Bisulfate (Plavix) 75 mg PO DAILY [facility] Last Admin: 03/24/18 10:08 Dose: Not Given Escitalopram Oxalate (Lexapro) 5 mg PO QAM [facility] Last Admin: 03/24/18 10:08 Dose: Not Given Folic Acid (Folic Acid) 1 mg PO DAILY [facility] Last Admin: 03/24/18 10:08 Dose: Not Given Furosemide (Lasix) 20 mg IVP DAILY [facility] Last Admin: 03/24/18 10:06 Dose: 20 mg Sodium Chloride (Sodium Chloride 0.45%) 1,000 mls @ 30 mls/hr IV .Q24H [facility] Last Admin: 03/23/18 17:19 Dose: 30 mls/hr Ceftriaxone Sodium (Rocephin 1 Gram Ivpb) 1 gm in 100 mls @ 100 mls/hr IVPB DAILY [facility]; Protocol Last Admin: 03/24/18 10:06 Dose: 100 mls/hr Insulin Detemir (Levemir) 12 unit SC HS [facility] Last Admin: 03/23/18 22:31 Dose: Not Given Insulin Human Regular (Humulin R Low) 0 units SC ACHS [facility]; Protocol Last Admin: 03/24/18 12:12 Dose: Not Given Losartan Potassium (Cozaar) 100 mg PO DAILY [facility] Last Admin: 03/24/18 10:08 Dose: Not Given Pantoprazole Sodium (Protonix Ec Tab) 40 mg PO ACB [facility] Last Admin: 03/24/18 08:30 Dose: Not Given Thiamine HCl (Vitamin B1 Tab) 100 mg PO DAILY [facility] Last Admin: 03/24/18 10:08 Dose: Not Given Tramadol HCl (Ultram) 50 mg PO QID PRN PRN Reason: Pain, moderate (4-7) Last Admin: 03/24/18 05:01 Dose: 50 mg Vitamin B Complex/Vit C/Folic Acid (Nephro-Leo) 1 tab PO 0800 [facility] Last Admin: 03/24/18 08:30 Dose: Not Given Results - Vital Signs Recent Vital Signs: Last Vital Signs Temp 98.6 F 03/24/18 14:14 Pulse 18 L 03/24/18 14:14 Resp 84 H 03/24/18 14:14 BP 169/90 H 03/24/18 14:14 Pulse Ox 95 03/24/18 06:00 - Labs Result Diagrams: 03/24/18 05:45 03/24/18 05:45 Labs: Laboratory Results - last 24 hr 03/23/18 03/23/18 03/23/18 07:11 11:02 16:40 WBC RBC Hgb Hct MCV MCH MCHC RDW Plt Count MPV Sodium Potassium Chloride Carbon Dioxide Anion Gap BUN Creatinine Est GFR ( Amer) Est GFR (Non-Af Amer) POC Glucose (mg/dL) 109 157 H 96 Random Glucose Calcium Phosphorus Total Bilirubin AST ALT Alkaline Phosphatase Total Protein Albumin Globulin Albumin/Globulin Ratio Vitamin B12 25-OH Vitamin D Total TSH 3rd Generation Urine Color Urine Appearance Urine pH Ur Specific [place] Urine Protein Urine Glucose (UA) Urine Ketones Urine Blood Urine Nitrate Urine Bilirubin Urine Urobilinogen Ur Leukocyte Esterase Urine RBC Urine WBC Ur Random Creatinine 03/23/18 03/24/18 03/24/18 21:39 05:45 05:45 WBC 6.9 RBC 4.64 Hgb 13.7 L Hct 41.6 L MCV 89.7 MCH 29.5 MCHC 32.9 RDW 14.0 Plt Count 148 MPV 10.9 Sodium 138 Potassium 4.7 Chloride 108 H Carbon Dioxide 20 L Anion Gap 16 BUN 36 H Creatinine 3.0 H Est GFR ( Amer) 25 Est GFR (Non-Af Amer) 21 POC Glucose (mg/dL) 89 Random Glucose 81 Calcium 8.5 Phosphorus 4.3 Total Bilirubin 0.8 AST 23 ALT 20 Alkaline Phosphatase 118 Total Protein 6.8 Albumin 3.5 Globulin 3.3 Albumin/Globulin Ratio 1.1 Vitamin B12 562 25-OH Vitamin D Total TSH 3rd Generation Urine Color Urine Appearance Urine pH Ur Specific [place] Urine Protein Urine Glucose (UA) Urine Ketones Urine Blood Urine Nitrate Urine Bilirubin Urine Urobilinogen Ur Leukocyte Esterase Urine RBC Urine WBC Ur Random Creatinine 03/24/18 03/24/18 03/24/18 05:45 05:45 07:25 WBC RBC Hgb Hct MCV MCH MCHC RDW Plt Count MPV Sodium Potassium Chloride Carbon Dioxide Anion Gap BUN Creatinine Est GFR ( Amer) Est GFR (Non-Af Amer) POC Glucose (mg/dL) 83 Random Glucose Calcium Phosphorus Total Bilirubin AST ALT Alkaline Phosphatase Total Protein Albumin Globulin Albumin/Globulin Ratio Vitamin B12 25-OH Vitamin D Total 21.2 L TSH 3rd Generation 4.49 Urine Color Urine Appearance Urine pH Ur Specific [place] Urine Protein Urine Glucose (UA) Urine Ketones Urine Blood Urine Nitrate Urine Bilirubin Urine Urobilinogen Ur Leukocyte Esterase Urine RBC Urine WBC Ur Random Creatinine 03/24/18 03/24/18 03/24/18 09:05 09:05 11:27 WBC RBC Hgb Hct MCV MCH MCHC RDW Plt Count MPV Sodium Potassium Chloride Carbon Dioxide Anion Gap BUN Creatinine Est GFR ( Amer) Est GFR (Non-Af Amer) POC Glucose (mg/dL) 119 H Random Glucose Calcium Phosphorus Total Bilirubin AST ALT Alkaline Phosphatase Total Protein Albumin Globulin Albumin/Globulin Ratio Vitamin B12 25-OH Vitamin D Total TSH 3rd Generation Urine Color Yellow Urine Appearance Clear Urine pH 5.0 Ur Specific [place] 1.025 Urine Protein 100 H Urine Glucose (UA) Negative Urine Ketones Trace H Urine Blood Small H Urine Nitrate Negative Urine Bilirubin Negative Urine Urobilinogen 0.2 Ur Leukocyte Esterase Negative Urine RBC 0 - 2 Urine WBC Negative Ur Random Creatinine 100 Attending/Attestation - Attestation I have fully participated in the care of the patient.: Yes I have reviewed all pertinent clinical information: Yes Notes (Text): 03/24/18 15:56 CHF DM ETOH abuse CKD Chronic change in appetite - likely multifactorial in setting of ongoing ETOH abuse - Diet as tolerated - ETOH cessation counseling - Consider social work evaluation given potential unsanitary living conditions - Patient would benefit from elective outpatient screening colonoscopy - No planned GI intervention, will sign off case. Please reconsult as necessary, thank you.
--- NOTE | 2018-03-24 09:30 | CP.PCM.PN ---
Subjective - Date & Time of Evaluation Date of Evaluation: 03/24/18 Time of Evaluation: 09:33 - Subjective Subjective: Patient M bed awake and conscious not in acute distress. No nausea or vomiting Objective - Vital Signs/Intake and Output Vital Signs (last 24 hours): Temp Pulse Resp BP Pulse Ox 97.7 F 80 18 185/70 H 95 03/24/18 06:00 03/24/18 08:31 03/24/18 06:00 03/24/18 08:31 03/24/18 06:00 Intake and Output: 03/24/18 03/24/18 06:59 18:59 Intake Total 360 Output Total 150 Balance 210 - Medications Medications: Current Medications Acetaminophen (Tylenol 325mg Tab) 650 mg PO Q6H PRN PRN Reason: Pain, Mild (1-3) Amlodipine Besylate (Norvasc) 10 mg PO DAILY [facility] Aripiprazole (Abilify) 5 mg PO HS [facility] Last Admin: 03/23/18 22:30 Dose: Not Given Aspirin (Ecotrin) 81 mg PO 0800 [facility] Last Admin: 03/24/18 08:30 Dose: Not Given Atorvastatin Calcium (Lipitor) 40 mg PO DIN [facility] Last Admin: 03/23/18 17:17 Dose: Not Given Carvedilol (Coreg) 3.125 mg PO BID [facility] Last Admin: 03/23/18 17:20 Dose: Not Given Clonidine HCl (Catapres-Tts2 0.2 Mg/24 Hr) 1 patch TD Q7D@1000 [facility] Last Admin: 03/24/18 08:31 Dose: 1 patch Clopidogrel Bisulfate (Plavix) 75 mg PO DAILY [facility] Last Admin: 03/23/18 15:41 Dose: Not Given Escitalopram Oxalate (Lexapro) 5 mg PO QAM [facility] Last Admin: 03/23/18 10:06 Dose: Not Given Folic Acid (Folic Acid) 1 mg PO DAILY [facility] Last Admin: 03/23/18 15:56 Dose: Not Given Furosemide (Lasix) 20 mg IVP DAILY [facility] Last Admin: 03/23/18 10:06 Dose: Not Given Sodium Chloride (Sodium Chloride 0.45%) 1,000 mls @ 30 mls/hr IV .Q24H [facility] Last Admin: 03/23/18 17:19 Dose: 30 mls/hr Ceftriaxone Sodium (Rocephin 1 Gram Ivpb) 1 gm in 100 mls @ 100 mls/hr IVPB DAILY [facility]; Protocol Last Admin: 03/23/18 10:25 Dose: 100 mls/hr Insulin Detemir (Levemir) 12 unit SC HS [facility] Last Admin: 03/23/18 22:31 Dose: Not Given Insulin Human Regular (Humulin R Low) 0 units SC ACHS [facility]; Protocol Last Admin: 03/24/18 08:21 Dose: Not Given Losartan Potassium (Cozaar) 100 mg PO DAILY [facility] Pantoprazole Sodium (Protonix Ec Tab) 40 mg PO ACB [facility] Last Admin: 03/24/18 08:30 Dose: Not Given Thiamine HCl (Vitamin B1 Tab) 100 mg PO DAILY [facility] Last Admin: 03/23/18 15:56 Dose: Not Given Tramadol HCl (Ultram) 50 mg PO QID PRN PRN Reason: Pain, moderate (4-7) Last Admin: 03/24/18 05:01 Dose: 50 mg Vitamin B Complex/Vit C/Folic Acid (Nephro-Leo) 1 tab PO 0800 [facility] Last Admin: 03/24/18 08:30 Dose: Not Given - Labs Labs: 03/24/18 05:45 03/24/18 05:45 - Constitutional Appears: No Acute Distress - Eye Exam Eye Exam: Conjunctival injection - ENT Exam ENT Exam: Mucous Membranes Moist - Neck Exam Neck Exam: absent: Lymphadenopathy - Respiratory Exam Respiratory Exam: NORMAL BREATHING PATTERN. absent: Chest Wall Tenderness - Cardiovascular Exam Cardiovascular Exam: absent: Gallop, JVD, Rubs - GI/Abdominal Exam GI & Abdominal Exam: Soft, Normal Bowel Sounds - Extremities Exam Extremities Exam: absent: Calf Tenderness - Back Exam Back Exam: absent: CVA tenderness (L), CVA tenderness (R) - Neurological Exam Neurological Exam: Alert - Psychiatric Exam Psychiatric exam: Normal Affect - Skin Skin Exam: absent: Cyanosis Assessment and Plan - Assessment and Plan (Free Text) Assessment: Hypertensive Chronic Kidney Disease (I12.9) Diabetes mellitus Chronic Kidney Disease (N18.3) Stage 4 with ? proteinuria HTN (I12.9) CHF, chronic alcohol abuse Non-obstructive small calculus in the left kidney left BKA and RT foot toe amputations My recommendation Blood pressures are still elevated increase losartan to a 100mg Also if blood pressure is still elevated suggest to DC clonidine patches and switch to clonidine oral pills Continue monitoring
[2018-03-24 09:31] LABS: URINE BILIRUBIN NEGATIVE (NEGATIVE); URINE BLOOD SMALL (NEGATIVE); URINE GLUCOSE (UA) NEGATIVE (NEGATIVE); URINE LEUKOCYTE ESTERASE NEGATIVE Leu/uL (NEGATIVE); URINE PROTEIN 100 mg/dL (<30 mg/dL); URINE UROBILINOGEN 0.2 E.U./dL (<1 E.U./dL)
[2018-03-24 09:36] LABS: URINE APPEARANCE CLEAR (CLEAR); URINE COLOR YELLOW (YELLOW)
[2018-03-24 09:41] LABS: URINE RBC 0 - 2 /hpf (0-2); URINE WBC NEGATIVE /hpf (0-6)
[2018-03-24] MEDS: cefTRIAXone 1 gm 1 GM/100 ML BAG IVPB SCH (10:06)
--- NOTE | 2018-03-24 16:14 | PN ---
DATE: 03/24/2018 CARDIOLOGY FOLLOWUP SUBJECTIVE: The patient's blood pressure is slightly better, but remains high at 178/105. PHYSICAL EXAMINATION: VITAL SIGNS: Heart rate is in the 80s. NECK: Negative JVD. LUNGS: Without rales. HEART: S1 and S2. EXTREMITIES: Status post BKA. LABORATORY DATA: Reveals hemoglobin of 13.7. Chemistries: BUN and creatinine are 36 and 3. IMPRESSION: 1. Renal insufficiency. 2. Accelerated hypertension which is better on increasing clonidine. 3. [id number] myocardial infarction. 4. Peripheral vascular disease. 5. High probability for coronary artery disease. 6. Hypercholesterolemia. Given these findings, we will continue on the high dose of clonidine. If remains high, we will increase it in the morning. Sanju Cobos MD
[2018-03-24] MEDS: Sodium Chloride 0.45% 1,000 ML IV SCH (17:55)
[2018-03-24] MEDS: Insulin Detemir 100 units/ml Vial (Levemir) SC SCH (21:52)
--- NOTE | 2018-03-24 22:25 | CARD ---
APPROVED REPORT Date of service: 03/24/2018 EXAM: Two-dimensional and M-mode echocardiogram with Doppler and color Doppler. INDICATION NSTEMI 2D DIMENSIONS Left Atrium (2D)3.6 (1.6-4.0cm)IVSd1.0 (0.7-1.1cm) LVDd4.7 (3.9-5.9cm)PWd1.3 (0.7-1.1cm) M-Mode DIMENSIONS Aortic Root3.30 (2.2-3.7cm)Aortic Cusp Exc.1.50 (1.5-2.0cm) Aortic Valve AoV Peak Grkahtpx75.4cm/Keyla Peak GR.4mmHg Mitral Valve MV E Ojmpomvq08.2cm/sMV A Prtwkdpq967.0cm/sE/A ratio0.3 TDI Lateral E' Peak V4.09cm/sMedial E' Peak V2.83cm/sE/Lateral E'8.6 E/Medial E'12.4 Pulmonary Valve PV Peak Oifowylo90.0cm/sPV Peak Grad.2mmHg Tricuspid Valve TR Peak Vjjenkzi402sf/sRAP [id number] Peak Gr.18mmHg [id number] LEFT VENTRICLE The left ventricle is normal size. There is borderline concentric left ventricular hypertrophy. The systolic function is moderately to severely impaired. The Ejection Fraction is 35-40%. Septal hypokinesis Transmitral Doppler flow pattern is Grade I-abnormal relaxation pattern. Cannot rule out thrombus in left Ventricle. RIGHT VENTRICLE The right ventricle is normal size. There is normal right ventricular wall thickness. The right ventricular systolic function is normal. ATRIA The left atrium size is normal. The right atrium size is normal. AORTIC VALVE The aortic valve is not well visualized. No aortic regurgitation is present. There is no aortic valvular stenosis. MITRAL VALVE The mitral valve is not well visualized. There is no mitral valve regurgitation noted. There is no mitral valve stenosis. TRICUSPID VALVE The tricuspid valve is normal in structure. There is trace tricuspid regurgitation. GREAT VESSELS The aortic root is normal in size. PERICARDIAL EFFUSION There is a trace loculated anterior pericardial effusion. <Conclusion> The left ventricle is normal size. There is borderline concentric left ventricular hypertrophy. The systolic function is moderately to severely impaired. The Ejection Fraction is 35-40%. Septal hypokinesis Transmitral Doppler flow pattern is Grade I-abnormal relaxation pattern. Cannot rule out thrombus in left Ventricle.
[2018-03-25] MEDS: Sodium Chloride 0.45% 1,000 ML IV SCH ×2 (06:33→18:41)
[2018-03-25 06:41] VITALS: O2SAT 94
[2018-03-25 06:53] LABS: HEMOGLOBIN 13.7 g/dL (14.0-18.0); MEAN CELL VOLUME 89.4 fl (80.0-105.0); MEAN CORPUSCULAR HEMOGLOBIN 29.1 pg (25.0-35.0); MEAN CORPUSCULAR HGB CONC 32.5 g/dl (31.0-37.0); MEAN PLATELET VOLUME 10.8 fl (7.0-11.0); RBC 4.71 10^6/uL (3.5-6.1); RED CELL DISTRIBUTION WIDTH 13.6 % (11.5-14.5); WHITE BLOOD COUNT 5.6 10^3/uL (4.5-11.0)
[2018-03-25 07:49] LABS: ALB/GLOB RATIO 1.1 (1.1-1.8); ALBUMIN 3.4 g/dL (3.0-4.8); CALCIUM 8.6 mg/dL (8.4-10.5)
[2018-03-25] MEDS: Insulin Reg-LOW-Coverage SC SCH ×3 (08:33→17:17)
--- NOTE | 2018-03-25 08:54 | DS ---
HISTORY OF PRESENT ILLNESS: He is resting comfortably in bed. He is still refusing blood pressure medications we tried to give him in the past. He had an IV dose of Apresoline yesterday. PHYSICAL EXAMINATION: VITAL SIGNS: He has a 97.6 temperature, 83 pulse, blood pressure is down to 182/92, 20 respiratory rate, 94% O2 sat on room air. HEENT: His head is atraumatic and normocephalic. Throat is moist. NECK: Supple. HEART: Regular rate. LUNGS: Decreased breath sounds. Poor inspiration but clear to auscultation. No wheezing, no rhonchi, no rales. ABDOMEN: Soft. EXTREMITIES: He has a left BKA. He is here with acute kidney injury, had an NSTEMI, renal insufficiency as well as UTI. He is currently on Abilify, Apresoline, Catapres patch is up to 0.3, Coreg, Cozaar, Ecotrin, folic acid, insulin coverage, Lasix, Levemir, Lexapro, Lipitor, vitamins, Norvasc, Plavix, Protonix, Rocephin, Tylenol, Ultram and vitamin B1. He is not taking any other oral medications, he just refuses them . He has 137 sodium, potassium is 4.4, BUN is 40, creatinine 3 and that is his baseline, GFR is 21, sugar is 86. Calcium is 8.6, total bili is 1.1, AST is 20, ALT is 22, alk phos 124, total protein is 6.5. His vitamin D is low at 21.2. TSH is 4.49. White count 5.6, 13.7 hemoglobin, 42.1 hematocrit, 158 platelets. I am hoping that we can discharge him to [facility] today for his weakness home. Kavon Patiño DO MTDD
--- NOTE | 2018-03-25 09:27 | CP.PCM.PN ---
Subjective - Date & Time of Evaluation Date of Evaluation: 03/25/18 Time of Evaluation: 09:23 - Subjective Subjective: Nephrology Consultation Note: Assessment: Stable ? UTI Hypertensive Chronic Kidney Disease (I12.9) Diabetes mellitus Chronic Kidney Disease (N18.3) Stage 4 with ? proteinuria HTN (I12.9) CHF, chronic alcohol abuse bladder calculus, left BKA and RT foot toe amputations Plan Renal function remains stable bp still high will inc coreg to 6.25 bid Monitor Input/Output, daily weights and renal function with basic metabolic panel continue with IVF f/u podiatry cardiology eval thimaine, FA and MVI Dose meds/antibiotics for reduced GFR. Avoid fleets enema/magnesium based laxatives. Avoid nephrotoxins/NSAIDs/ iodinated contrast (unless needed emergently) Glycemic control S: seen and examiend no complaints feels ok Physical Examination: General Appearance: Comfortable, in no acute respiratory distress, irritable, poor local hygiene and unkempt appearance. Vitals reviewed and noted as below Head; Atraumatic, normocephalic ENT: no ulcers no thrush. Tongue is midline. Oropharynx: no rash or ulcers. poor dentition EYES: Pupils are equal, round and reactive to light accommodation. Eye muscles and extraocular movement intact. Sclera is anicteric. Neck; supple no lymphadenopathy, no thyromegaly or bruit Lungs: Normal respiratory rate/effort. cta Heart: Normal rate. s1s2 normal. No rub or gallop. Extremities: no edema. No varicose veins. hands muscle atrophy and arthritic changes noted. left BKA and Rt foot toe amputations Neurological: Patient is alert, awake and oriented. No focal deficit. Strength bilateral appropriate and equal Skin: Warm and dry. Normal turgor. No rash. Palpitation: Normal elasticity for age Abdomen: Abdomen is soft. Bowel sounds +. There is no abdominal tenderness, no guarding/rigidity no organomegaly Psych: lack and normal affect MSK: no joint tenderness or swelling. nails overgrown. : kidney or bladder not palpable Labs/imaging reviewed. Objective - Vital Signs/Intake and Output Vital Signs (last 24 hours): Temp Pulse Resp BP Pulse Ox 97.6 F 83 20 182/92 H 94 L 03/25/18 06:00 03/25/18 06:00 03/25/18 06:00 03/25/18 06:00 03/25/18 06:00 Intake and Output: 03/25/18 03/25/18 06:59 18:59 Intake Total 360 Output Total 300 Balance 60 - Medications Medications: Current Medications Acetaminophen (Tylenol 325mg Tab) 650 mg PO Q6H PRN PRN Reason: Pain, Mild (1-3) Amlodipine Besylate (Norvasc) 10 mg PO DAILY [facility] Last Admin: 03/24/18 10:08 Dose: Not Given Aripiprazole (Abilify) 5 mg PO HS [facility] Last Admin: 03/24/18 21:52 Dose: Not Given Aspirin (Ecotrin) 81 mg PO 0800 [facility] Last Admin: 03/24/18 08:30 Dose: Not Given Atorvastatin Calcium (Lipitor) 40 mg PO DIN [facility] Last Admin: 03/24/18 17:34 Dose: Not Given Carvedilol (Coreg) 3.125 mg PO BID [facility] Last Admin: 03/24/18 17:34 Dose: Not Given Clonidine HCl (Catapres-Tts3 0.3 Mg/24 Hr) 1 patch TD Q7D@1000 [facility] Last Admin: 03/24/18 12:36 Dose: 1 patch Clopidogrel Bisulfate (Plavix) 75 mg PO DAILY [facility] Last Admin: 03/24/18 10:08 Dose: Not Given Escitalopram Oxalate (Lexapro) 5 mg PO QAM [facility] Last Admin: 03/24/18 10:08 Dose: Not Given Folic Acid (Folic Acid) 1 mg PO DAILY [facility] Last Admin: 03/24/18 10:08 Dose: Not Given Furosemide (Lasix) 20 mg IVP DAILY [facility] Last Admin: 03/24/18 10:06 Dose: 20 mg Hydralazine HCl (Apresoline) 10 mg IVP Q8 PRN PRN Reason: HTN Last Admin: 03/24/18 17:34 Dose: 10 mg Sodium Chloride (Sodium Chloride 0.45%) 1,000 mls @ 30 mls/hr IV .Q24H [facility] Last Admin: 03/25/18 06:33 Dose: 30 mls/hr Ceftriaxone Sodium (Rocephin 1 Gram Ivpb) 1 gm in 100 mls @ 100 mls/hr IVPB DAILY [facility]; Protocol Last Admin: 03/24/18 10:06 Dose: 100 mls/hr Insulin Detemir (Levemir) 12 unit SC [facility] Last Admin: 03/24/18 21:52 Dose: Not Given Insulin Human Regular (Humulin R Low) 0 units SC [facility]; Protocol Last Admin: 03/25/18 08:33 Dose: Not Given Losartan Potassium (Cozaar) 100 mg PO DAILY [facility] Last Admin: 03/24/18 10:08 Dose: Not Given Pantoprazole Sodium (Protonix Ec Tab) 40 mg PO ACB [facility] Last Admin: 03/24/18 08:30 Dose: Not Given Thiamine HCl (Vitamin B1 Tab) 100 mg PO DAILY [facility] Last Admin: 03/24/18 10:08 Dose: Not Given Tramadol HCl (Ultram) 50 mg PO QID PRN PRN Reason: Pain, moderate (4-7) Last Admin: 03/25/18 05:17 Dose: 50 mg Vitamin B Complex/Vit C/Folic Acid (Nephro-Leo) 1 tab PO 0800 [facility] Last Admin: 03/24/18 08:30 Dose: Not Given Vitamin E (Vitamin E 400 Units Cap) 400 intlu PO DAILY [facility] - Labs Labs: 03/25/18 06:00 03/25/18 06:00
[2018-03-25] MEDS: Pantoprazole 40 mg EC Tab PO SCH (10:00)
[2018-03-25] MEDS: Multivitamin Vitamin B Complex (Nephro-Vite) Tab PO SCH (10:00)
[2018-03-25] MEDS: cefTRIAXone 1 gm 1 GM/100 ML BAG IVPB SCH (10:57)
--- NOTE | 2018-03-25 12:40 | PN ---
DATE: 03/25/2018 CARDIOLOGY FOLLOWUP SUBJECTIVE: The patient is in bed, awake, alert. No shortness of breath. No chest pain. PHYSICAL EXAMINATION: VITAL SIGNS: Blood pressure is 170/98, heart rates in the 80s. NECK: Negative JVD. LUNGS: Decreased breath sounds. HEART: Reveal S1, S2. EXTREMITIES: Unchanged. LABORATORY DATA: Hemoglobin is 13.7. Chemistries: BUN and creatinine is 40 and 3. IMPRESSION: 1. Hypertension, which is slightly better with increasing medications. 2. Renal insufficiency. 3. Tud-CW-jzwftizqo myocardial infarction. 4. Peripheral vascular disease. 5. Coronary artery disease. 6. Hypercholesterolemia. PLAN: Given these findings, the patient's non-STEMI will be treated medically. Cardiac catheterization would carry too higher risk for contrast nephropathy. We will continue his low-dose beta-blockers, aspirin and statin therapy. The patient is being transferred back to custodial home today. We will discontinue telemetry. Sanju Cobos MD
[2018-03-25 13:57] VITALS: RESP 18
--- NOTE | 2018-03-25 14:17 | IP.NPCORE ---
Acute SD Core Measure PNote - LVF prior to this hospilization,if known LVF prior to this hospilization: Ejection Fraction less than 40% - Ejection Fraction % Fraction %: 35 - Source Source: Echo - Date Date: 03/24/18 - Medications Aspirin Name/Dose/Frequency:: ASA 81mg Beta González prescribed: Name/dose/frequency: coreg Contraindications to ZENON/ARB:: Worsening renal insufficiency Lipid Lowering Agent: Name/Dose/Frequency: lipitor
[2018-03-25 18:20] VITALS: BP 141/94; PULSE 93; TEMP 98.3
== END 2018-03-25 21:36 | DRG 281 ==
LOC: ED 13:32 → ERH 16:48 → 2RNO 22:08
PROVIDERS: ADMIT Family Medicine; ATTEND Family Medicine
DX: I21.4 Non-ST elevation (NSTEMI) myocardial infarction (principal); N17.9 Acute kidney failure, unspecified; N39.0 Urinary tract infection, site not specified; I13.0 Hypertensive heart and chronic kidney disease with heart failure and stage 1 through stage 4 chronic kidney disease, or unspecified chronic kidney disease; N18.4 Chronic kidney disease, stage 4 (severe); I50.22 Chronic systolic (congestive) heart failure; Z87.891 Personal history of nicotine dependence; Z89.512 Acquired absence of left leg below knee; F10.10 Alcohol abuse, uncomplicated; E11.22 Type 2 diabetes mellitus with diabetic chronic kidney disease; E11.51 Type 2 diabetes mellitus with diabetic peripheral angiopathy without gangrene; I27.20 Pulmonary hypertension, unspecified; R63.0 Anorexia; N20.0 Calculus of kidney; E78.00 Pure hypercholesterolemia, unspecified; I25.10 Atherosclerotic heart disease of native coronary artery without angina pectoris; I50.9 Heart failure, unspecified; K21.9 Gastro-esophageal reflux disease without esophagitis; N21.0 Calculus in bladder; Z89.421 Acquired absence of other right toe(s); Z82.49 Family history of ischemic heart disease and other diseases of the circulatory system; Z83.3 Family history of diabetes mellitus

== ENCOUNTER 2018-04-11 07:59 | Inpatient (IN) | payer MEDICARE ==
[2018-04-11 08:06] VITALS: BMI 20.7
[2018-04-11] MEDS ORDERED: Sodium Chloride 0.9% 1,000 ML IV ONE (08:30)
--- NOTE | 2018-04-11 08:42 | ED PDOC ---
Arrival/HPI <Walker Hunter - Last Filed: 04/11/18 09:46> - History of Present Illness Narrative History of Present Illness (Text): This is a 73 year old male with PMH of DM, CHF, HTN, hypercholesterolemia, CKD who presents to the ED for evaluation of weakness for the past few days, associated with chills, cough and headache. Pt is a poor historian. Pt spoke with his PMD this morning, who told him to come to the ED. Endorses cough for the past 2 days, productive of nonbloody phlegm. one episode of post-tussive vomiting yesterday, nonbloody nonbilious. Pt states that he hasn't been feeling himself since being discharged from [facility]. He has not been taking care of himself, and has been sitting on the cough, urinating in cups and unable to get to the bathroom. He states that he hasn't been eating much either. He denies focal weakness, new numbness or tingling, visual changes, fevers, chest pain, sob, abdominal pain, n/v/d, dysuria, penile discharge. Pt states that he isn't taking any of his medications since being discharged from [facility] because he doesn't have them. He was recently admitted [place] [facility] [place] similar generalized weakness, where he was placed on anticoagulation due to elevation of troponins. His last echocardiogram during the admission showed diastolic and systolic dysunction, LVEF approximately 35-40%. PMD: Chelsey Patiño PMH: DM, CHF, HTN, hypercholesterolemia, CKD PSH: Left BKA 2 years ago Meds: see MAR; Pt reports he is only taking Tramadol Allx: NKDA Time/Duration: Other (x 2 days) Symptom Onset: Gradual Symptom Course: Worsening Associated Symptoms (Text): cough <Quang Camarena - Last Filed: 04/11/18 13:55> - General Chief Complaint: Weakness/Neurological Deficit Past Medical History - Provider Review Nursing Documentation Reviewed: Yes - Infectious Disease Hx of Infectious Diseases: None - Cardiac Hx Cardiac Disorders: Yes Hx Congestive Heart Failure: Yes - Pulmonary Hx Respiratory Disorders: No - Neurological Hx Neurological Disorder: No - HEENT Hx HEENT Disorder: No - Renal Hx Renal Disorder: Yes Hx Renal Failure: Yes - Endocrine/Metabolic Hx Endocrine Disorders: Yes Hx Diabetes Mellitus Type 2: Yes - Hematological/Oncological Hx Blood Disorders: No - Integumentary Hx Dermatological Disorder: Yes (POST I AND D AND DEBRIDEMENT OF LEFT FOOT.11-11-15) Other/Comment: amputation left great/2nd toe,L BKA. 08-15-16 IASD TO INBETWEEN GROIN EXTENDS TO IN BETWEEN BUTTOCKS AREA,FLUSHED RED SKIN. CELLULITIS OF RIGHT HAND. LEFT 3RD TOE WITH A 1 CM IN DM WOUND WITH ENCRUSTATION.SWELLING,BURGUNDY SKIN COLORE,DENIES PAIN. - Musculoskeletal/Rheumatological Hx Musculoskeletal Disorders: Yes (OSTEOMYELITIS) Hx Falls: Yes Hx Osteomyelitis: Yes Other/Comment: L BKA - Gastrointestinal Hx Gastrointestinal Disorders: Yes Hx Gastroesophageal Reflux: Yes - Genitourinary/Gynecological Hx Genitourinary Disorders: No - Psychiatric Hx Psychophysiologic Disorder: Yes Hx Depression: Yes Hx Substance Use: No - Surgical History Hx Amputation: Yes (left bka) Other/Comment: amputation left 1/2/ toes bka 03/17/2016 - Anesthesia Hx Anesthesia: Yes Hx Anesthesia Reactions: No Hx Malignant Hyperthermia: No - Suicidal Assessment Feels Threatened In Home Enviroment: No <Quang Camarena - Last Filed: 04/11/18 13:55> Family/Social History - Physician Review Nursing Documentation Reviewed: Yes Family/Social History: Unknown Family HX Smoking Status: Current Some Days Smoker Hx Alcohol Use: Yes (ETOH ABUSE H/O.DRINKS EVERY NOW AND THEN. LASD DRANK BEER 1.5 WEDNESDAY) Hx Substance Use: No <Quang Camarena - Last Filed: 04/11/18 13:55> Allergies/Home Meds <Walker Hunter - Last Filed: 04/11/18 09:46> <Quang Camarena - Last Filed: 04/11/18 13:55> Allergies/Adverse Reactions: Allergies No Known Allergies Allergy (Verified 04/11/18 12:47) Review of Systems - Review of Systems Constitutional: Fatigue Eyes: Normal ENT: Normal Respiratory: Cough, Sputum. absent: SOB Cardiovascular: absent: Chest Pain, Palpitations, Edema, Calf Pain Gastrointestinal: Constipation, Vomiting (post-tussive). absent: Abdominal P ain, Diarrhea Genitourinary Male: Normal Musculoskeletal: Arthralgias Skin: Other (excoriations to the right lower extremity) Neurological: Headache, Dizziness. absent: Focal Weakness, Speech Changes, Facial Droop Endocrine: Normal Hemo/Lymphatic: Normal Psychiatric: Normal <Quang Camarena - Last Filed: 04/11/18 13:55> Physical Exam Vital Signs Temp Pulse Resp BP Pulse Ox 04/11/18 09:16 99 F 101 H 04/11/18 08:45 101 H 100 04/11/18 08:07 99.8 F H 110 H 18 144/89 97 <Walker Hunter - Last Filed: 04/11/18 09:46> Vital Signs Reviewed: Yes Vital Signs Temp Pulse Resp BP Pulse Ox 04/11/18 08:07 99.8 F H 110 H 18 144/89 97 Temperature: Afebrile Blood Pressure: Normal Pulse: Tachycardic Respiratory Rate: Normal Appearance: Positive for: Non-Toxic, Comfortable, Unkept Pain Distress: None Mental Status: Positive for: Alert and Oriented X 3 - Systems Exam Head: Present: Atraumatic, Normocephalic Pupils: Present: PERRL Extroacular Muscles: Present: EOMI Conjunctiva: Present: Normal Mouth: Present: Dry Respiratory/Chest: Present: Rhonchi (at the bilateral lower lung rodriguez). No: Respiratory Distress, Wheezes, Rales Cardiovascular: Present: Normal S1, S2, Tachycardic. No: Murmurs, Rub, Gallop Abdomen: Present: Normal Bowel Sounds. No: Tenderness, Distention, Rebound, Guarding Back: Present: Normal Inspection Upper Extremity: Present: Normal Inspection, NORMAL PULSES. No: Cyanosis, Edema Lower Extremity: No: Edema, CALF TENDERNESS Neurological: Present: GCS=15, CN II-XII Intact, Speech Normal, Motor Func Grossly Intact (4/5 bilateral upper and lowe extremities) Skin: Present: Warm, Dry, Normal Color, Other (excoriations to the right lower distal extremity) Psychiatric: Present: Alert, Oriented x 3 <Quang Camarena - Last Filed: 04/11/18 13:55> Medical Decision Making ED Course and Treatment: 04/11/18 09:00 73 y/o M presents to the Emergency department complaining of generalized weakness. In agreement with resident note which contains more details about the patient. Patient seen and evaluated with resident. Came up with plan and treatment together. - Lab Interpretations Lab Results: 04/11/18 08:30 04/11/18 08:30 Lab Results 04/11/18 08:41: POC Glucose (mg/dL) 251 H 04/11/18 08:30: Sodium 140, Chloride 108 H, Potassium 4.9, Carbon Dioxide 19 L, Anion Gap 18, BUN 33 H, Creatinine 2.8 H, Est GFR ( Amer) 27, Est GFR (Non-Af Amer) 22, Random Glucose 290 H, Calcium 8.7, Phosphorus 2.8, Magnesium 1.7, Total Bilirubin 0.7, AST 26, ALT 25, Alkaline Phosphatase 133 H, Total Creatine Kinase 37, Troponin I 0.02 D, Total Protein 7.5, Albumin 4.0, Globulin 3.5, Albumin/Globulin Ratio 1.1 11 08:30: pO2 45, VBG pH 7.37, VBG pCO2 36.0 L, VBG HCO3 20.8 L, VBG Total CO2 21.9 L, VBG O2 Sat (Calc) 87.8 H, VBG Base Excess -3.9 L, VBG Potassium 6.0 H, Sodium 138.0, Chloride 104.0, Glucose 309 H, Lactate 2.2 H, FiO2 21.0, Venous Blood Potassium 6.0 H 04/11/18 08:30: PT 12.2, INR 1.06, APTT 29.8 04/11/18 08:30: WBC 6.9, RBC 5.13, Hgb 14.8, Hct 45.0, MCV 87.7, MCH 28.8, MCHC 32.9, RDW 13.1, Plt Count 239, MPV 11.2 H, Gran % 75.7 H, Lymph % (Auto) 13.8 L, Hamlin % (Auto) 7.9 H, Eos % (Auto) 2.2, Baso % (Auto) 0.4, Gran # 5.25, Lymph # (Auto) 1.0 L, Hamlin # (Auto) 0.6, Eos # (Auto) 0.2, Baso # (Auto) 0.03 - RAD Interpretation Radiology Orders: 11/12/18 08:30 CHEST PORTABLE [RAD] Stat - Medication Orders Current Medication Orders: Sodium Chloride (Sodium Chloride 0.9%) 1,000 mls @ 50 mls/hr IV .Q20H ONE Stop: 04/12/18 04:29 Last Admin: 04/11/18 09:08 Dose: 50 mls/hr eMAR Start Stop Document 04/11/18 09:08 GMI (Rec: 04/11/18 09:08 GMI [id number]) Intravenous Solution Start Date 04/11/18 Start Time 09:08 <Walker Hunter - Last Filed: 04/11/18 09:46> ED Course and Treatment: 04/11/18 08:47 Pt presents with generalized weakness. Recent admission 2 weeks ago [place] [facility] CBC, CMP, magnesium, troponin, cpk, EKG, CXR, vbg with lactate, UA, urine culture, blood culture Gentle hydration NS IVF at 50 mL 04/11/18 10:49 Pt given home Tramadol PO. 04/11/18 11:[address] Chelsey Patiño, who will accept the pt for obs med/surg. 04/11/18 13:54 Reassessment Condition: Improving,but remains with symptoms - RAD Interpretation Narrative RAD Interpretations (Text): 04/11/18 10:26 CXR shows no active disease; as read by radiology. Radiology Orders: 04/11/18 08:30 CHEST PORTABLE [RAD] Stat Information Technology Specialist: Radiologist - EKG Interpretation EKG Interpretation (Text): 04/11/18 08:[address] at 105, occasional PVCs, nonspecific STTW changes; [place] is 148, QTc is 459; as read by ED attending Interpreted by ED Physician: Yes - Medication Orders Current Medication Orders: Sodium Chloride (Sodium Chloride 0.9%) 1,000 mls @ 50 mls/hr IV .Q20H ONE Stop: 04/12/18 04:29 <Quang Camarena - Last Filed: 04/11/18 13:55> - PA / NEWS COMMENTATOR / Resident Statement / has reviewed & agrees with the documentation as recorded. MD/DO has examined the patient and agrees with the treatment plan. - Scribe Statement The provider has reviewed the documentation as recorded by the Scribe Jordan Jasso. All medical record entries made by the Scribe were at my direction and personally dictated by me. I have reviewed the chart and agree that the record accurately reflects my personal performance of the history, physical exam, medical decision making, and the department course for this patient. I have also personally directed, reviewed, and agree with the discharge instructions and disposition. <Walker Hunter - Last Filed: 04/11/18 09:46> Disposition/Present on Arrival <Walker Hunter - Last Filed: 04/11/18 09:46> - Present on Arrival Any Indicators Present on Arrival: No History of DVT/PE: No History of Uncontrolled Diabetes: No Urinary Catheter: No History of Decub. Ulcer: No History Surgical Site Infection Following: None - Disposition Have Diagnosis and Disposition been Completed?: Yes Disposition Time: 11:40 Patient Plan: Observation (med/surg) <Quang Camarena - Last Filed: 04/11/18 13:55> - Disposition Diagnosis: Failure to thrive Disposition: HOSPITALIZED Condition: STABLE
[2018-04-11 08:57] LABS: BASO # 0.03 K/mm3 (0.0-2.0); BASO % 0.4 % (0.0-3.0); EOS # 0.2 (0.0-0.7); EOS % 2.2 % (1.5-5.0); GRAN # 5.25 (1.4-6.5); GRAN % 75.7 % (50.0-68.0); HEMOGLOBIN 14.8 g/dL (14.0-18.0); LYMPH % 13.8 % (22.0-35.0); MEAN CELL VOLUME 87.7 fl (80.0-105.0); MEAN CORPUSCULAR HEMOGLOBIN 28.8 pg (25.0-35.0); MEAN CORPUSCULAR HGB CONC 32.9 g/dl (31.0-37.0); MEAN PLATELET VOLUME 11.2 fl (7.0-11.0); MONO # 0.6 (0.1-0.6); MONO % 7.9 % (1.0-6.0); RBC 5.13 10^6/uL (3.5-6.1); RED CELL DISTRIBUTION WIDTH 13.1 % (11.5-14.5); WHITE BLOOD COUNT 6.9 10^3/uL (4.5-11.0)
[2018-04-11 08:58] LABS: VENOUS BLOOD GAS BASE EXCESS -3.9 mmol/L (0.0-2.0); VENOUS BLOOD GAS PO2 45 mm/Hg (30-55); VENOUS BLOOD PH 7.37 (7.32-7.43)
[2018-04-11 09:05] LABS: INR 1.06; PARTIAL THROMBOPLASTIN TIME 29.8 Seconds (25.1-36.5); PROTHROMBIN TIME 12.2 SECONDS (9.4-12.5)
[2018-04-11 09:11] LABS: ALB/GLOB RATIO 1.1 (1.1-1.8); CALCIUM 8.7 mg/dL (8.4-10.5)
[2018-04-11 09:16] LABS: TROPONIN I 0.02 ng/mL
--- NOTE | 2018-04-11 09:23 | RAD ---
Date of service: 04/11/2018 HISTORY: Sepsis Patient COMPARISON: 03/22/2014 FINDINGS: LUNGS: No active pulmonary disease. PLEURA: No significant pleural effusion identified, no pneumothorax apparent. CARDIOVASCULAR: No aortic atherosclerotic calcification present. Normal cardiac size. No pulmonary vascular congestion. OSSEOUS STRUCTURES: No significant abnormalities. VISUALIZED UPPER ABDOMEN: Normal. OTHER FINDINGS: None. IMPRESSION: No active disease.
[2018-04-11 11:04] LABS: URINE BILIRUBIN NEGATIVE (NEGATIVE); URINE BLOOD TRACE-LYSED (NEGATIVE); URINE GLUCOSE (UA) 250 mg/dL (NEGATIVE); URINE LEUKOCYTE ESTERASE TRACE Leu/uL (NEGATIVE); URINE PROTEIN 100 mg/dL (<30 mg/dL); URINE UROBILINOGEN 0.2 E.U./dL (<1 E.U./dL)
[2018-04-11 11:08] LABS: URINE APPEARANCE SL CLOUDY (CLEAR); URINE COLOR YELLOW (YELLOW)
[2018-04-11 11:10] LABS: URINE HYALINE CAST 0 - 2 /hpf; URINE RBC NEGATIVE /hpf (0-2); URINE WBC 0 - 2 /hpf (0-6)
[2018-04-11 13:16] LABS: VENOUS BLOOD GAS BASE EXCESS -6.4 mmol/L (0.0-2.0); VENOUS BLOOD GAS PO2 211 mm/Hg (30-55); VENOUS BLOOD PH 7.32 (7.32-7.43)
--- NOTE | 2018-04-11 13:30 | CARD ---
APPROVED REPORT Date of service: 04/11/2018 EKG Measurement Heart [id number] <Conclusion> Sinus tachycardia with occasional premature ventricular complexes Inferior infarct, age undetermined Poor R wave progression ST & T wave abnormality, consider lateral ischemia Abnormal ECG
[2018-04-11] MEDS ORDERED: Influenza Vaccine 60 mcg/0.5 mL SYR (4YR UP) IM ONE (16:37)
[2018-04-11] MEDS ORDERED: Pneumococcal 23-Valent Vaccine IM ONE (16:37)
[2018-04-11] MEDS: Insulin Reg-MEDIUM-Coverage SC SCH ×2 (17:00→22:00)
--- NOTE | 2018-04-11 22:09 | HP ---
DATE OF EXAM: 04/11/2018 I have been doing house calls on Margarito for a while. He was in the hospital recently also, he went home. He now tells me he cannot take care of himself anymore. He is unable to move off the couch. 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 He is a 73-year-old white male with a past medical history of diabetes, CHF, hypertension, high cholesterol, CKD. He has weakness for the past few days. He has had chills, cough, headaches. He is a poor historian. He drinks alcohol every day. Cough for the past few days, nonbloody phlegm. Has not been feeling well. He is even discharged from [facility]. Sits on a couch, urinates in cups, unable to get to the bathroom. Just very unkept. He has generalized weakness, he has done this before. He has diabetes, CHF, hypertension, high cholesterol, CKD, peripheral vascular disease, left BKA two years ago. He has only been taking tramadol, before he has been on a lot of other medications. NO KNOWN DRUG ALLERGIES. He refuses everything, we will try and put him back on them anyway. He had debridement of his foot in the past, toes amputated to a left BKA. He has had reddened legs and buttocks, cellulitis of the hand. Multiple encrustation, swelling, rubbing the skin. He has a history of osteomyelitis, falls, left BKA. He has GERD, depression, amputation of the toes on the left, then a left BKA. FAMILY HISTORY: Unknown family history. SOCIAL HISTORY: He still smokes cigarettes, still drinks a lot of alcohol. No substance abuse. ALLERGIES: NO KNOWN DRUG ALLERGIES. MEDICATIONS: He is supposed to take a lot of medications for blood pressure and diabetes but he does not and tramadol for pain. REVIEW OF SYSTEMS: He is fatigued, very weak, cannot get off the couch, cannot use his prosthesis. No eye changes or hearing changes. No cough or sputum. No chest pain or palpitations. Little constipation. Some vomiting. No abdominal pain. No diarrhea. No problems urinating. He does have arthralgias in the joint. Excoriation to the right lower extremity. He has headache and dizziness. He is not taking his medications. PHYSICAL EXAMINATION GENERAL: He is comfortable on bed at rest, alert and oriented x3. VITAL SIGNS: He has 99.8 temp, 110 pulse, 18 respiratory rate, 144/89 blood pressure, 97% O2 sat. HEENT: Head is atraumatic, normocephalic. Extraocular muscles intact. Pupils reactive to light and accommodation. Throat is dry. LUNGS: Decreased breath sounds, some rhonchi bilaterally, changes with cough. HEART: Regular rate. Normal S1, S2. ABDOMEN: Soft and nontender. Positive bowel sounds. EXTREMITIES: He has left BKA. Hands are in poor condition. He has some excoriations on the buttocks. NEUROLOGIC: GCS is 15. Cranial nerves II through XII grossly intact. Normal speech. Alert and oriented x3. LABORATORY DATA: He had multiple tests done. Chest x-ray was clean. He has 6.9 white count, 14.8 hemoglobin, 45 hematocrit with 239 platelets. INR is 1.06. Lactate is 2.2. He has 140 sodium, potassium 4.9, BUN 33, creatinine 2.8, very dry. GFR is 22. His blood sugars are 290 and 251, I will put him on coverage and IV fluids. Calcium is 8.7, magnesium 1.7, total bili is 0.7, AST is 26, ALT is 25, alk phos 133. Total creatine kinase is 37. Troponin I is 0.02. Total protein is 7.5. Urine was negative. He is here a little dehydration, IV fluids. Also, he tells me he does not think he can take of himself at home. I have called in case management to help this out with a possible discharge plan, some IV fluids and put back on his medications which he will probably refuse. Kavon Patiño DO
[2018-04-12] MEDS ORDERED: Nystatin 100,000 Units/gm Topical Pow(15 gm) TOP PRN (06:47)
[2018-04-12 09:21] LABS: ALBUMIN 3.1 g/dL (3.0-4.8); CALCIUM 7.7 mg/dL (8.4-10.5)
[2018-04-12] MEDS: Pantoprazole 40 mg EC Tab PO SCH ×2 (10:16→15:19)
[2018-04-12] MEDS: Nystatin 100,000 Units/gm Topical Pow(15 gm) TOP SCH ×3 (10:18→15:18)
--- NOTE | 2018-04-12 11:08 | PN ---
DATE: 04/12/2018 SUBJECTIVE: He is comfortable in bed this morning. He is refusing his medications as usual. He is weak. He tells me he [facility], but I read the nursing home social worker note that says he would be going back to [facility] for physical therapy and then go home. We need social worker assistant and case management to help us figure him out if it is possible and see him as an observation. He was just in the hospital. I love to see him discharged today back to [facility] possibly for physical therapy before he goes home, otherwise I do not know because of his finance.. He has Medicare outpatient, insurance, right now is on observation, case management to let me know and they want me to change him to inpatient if we are going to a [facility] or if he can get him out today, I will leave him as an observation. PHYSICAL EXAMINATION: VITAL SIGNS: He has 97.6 temp, 71 pulse, 150/99 blood pressure, he is refusing his blood pressure meds, 18 respiratory rate, and 97% O2 sat on room air. HEENT: Head is atraumatic, normocephalic. HEART: Regular rate. LUNGS: Decreased breath sounds, but clear. ABDOMEN: Soft. EXTREMITIES: He does have a left BKA and he has been stuck on the couch, not being able to get up for about 4 to 5 days now and that is the way he ended up in the ER. LABORATORY DATA: 140 sodium, potassium 4.9, BUN 33, creatinine 2.8, on IV fluids. Sugar is 99. Sugar is 290 also. Calcium is 8.7, magnesium 1.7, total bili is 0.7, AST is 26, ALT is 25, alk phos 133. Troponin I is 0.02. White count 6.9, hemoglobin 14.8, hematocrit 45, and platelets of 239. MEDICATIONS: He has Ultram for pain, Plavix, nystatin powder, Lipitor, Lexapro, Coreg, Catapres patch, Abilify, he refuses mostly everything. ASSESSMENT AND PLAN: Hopefully, we can work on discharge planning with social work and case management and he is here because he tells me he is weak, cannot do anything for himself, stuck on the couch. VELMA next Kavon Patiño DO [facility] # [id number] CECILE
[2018-04-12] MEDS: Insulin Reg-MEDIUM-Coverage SC SCH ×3 (15:14→22:34)
[2018-04-13 07:08] LABS: HEMOGLOBIN 12.5 g/dL (14.0-18.0); MEAN CELL VOLUME 88.3 fl (80.0-105.0); MEAN CORPUSCULAR HEMOGLOBIN 28.7 pg (25.0-35.0); MEAN CORPUSCULAR HGB CONC 32.6 g/dl (31.0-37.0); MEAN PLATELET VOLUME 11.7 fl (7.0-11.0); RBC 4.35 10^6/uL (3.5-6.1); WHITE BLOOD COUNT 6.9 10^3/uL (4.5-11.0)
[2018-04-13 07:18] LABS: ALBUMIN 3.1 g/dL (3.0-4.8); CALCIUM 8.2 mg/dL (8.4-10.5)
[2018-04-13] MEDS: Insulin Reg-MEDIUM-Coverage SC SCH ×4 (08:42→21:38)
[2018-04-13] MEDS: Pantoprazole 40 mg EC Tab PO SCH (08:43)
[2018-04-13] MEDS: Nystatin 100,000 Units/gm Topical Pow(15 gm) TOP SCH ×3 (10:47→19:02)
--- NOTE | 2018-04-13 11:10 | DS ---
HISTORY OF PRESENT ILLNESS: I saw him resting comfortably in bed this morning, he is wanting to leave the hospital. We are working with social services technician and case management get him hopefully to the [facility] or [facility]. He is willing to go to either place. The note from the social media coordinator was that he wanted to talk to me first and he now agrees [facility] or [facility] and that is also my order where I would like him to go to and he is eating okay. He is still refusing his medications. He will need VELMA. PHYSICAL EXAMINATION: VITAL SIGNS: He has a 97.7 temperature, 65 pulse, 170/98 blood pressure, 20 respiratory rate and 96% O2 saturation on room air. He is not on any medications for his blood pressure. He is on Abilify, Catapres patch at 0.3, Coreg, Ecotrin, Feosol, folic acid, insulin, Lexapro. Lipitor, Plavix, Protonix, Ultram. I do not remember the last time he took any of his medications. He is very noncompliant, very frustrating, but he does note he cannot take care of himself at home anymore, he needs to go to a facility. HEENT: His head is atraumatic and normocephalic. HEART: Regular rate. LUNGS: Decreased breath sounds but clear. ABDOMEN: Soft and nontender. EXTREMITIES: No edema. He has a left BKA. He said he could not use his prosthesis anymore, he could not get out of bed and needs to be on a facility. He is here for failure to thrive and weakness. LABORATORY DATA: He has a 6.9 white count, 12.5 hemoglobin, 38.4 hematocrit with 176,000 platelets. He has 140 sodium; potassium 4.7; BUN 24; creatinine 2.3, it is actually better than his baseline; GFR is 24; sugar is 112. Calcium is 8.2, total bili is 0.5, AST is 22, ALT is 22, alk phos 106 and total protein 6.3. Overall, he is improved since he has been here. I am hoping we could discharge him to [facility] first choice and second choice [facility]. He is willing to go to either one of them. card services specialist and case management can call me, we will continue with the same medications. We will try and see if they will take him at that facility. He will also get physical therapy while he is there to get him back on this prosthesis and walking again. Kavon Patiño DO [facility]
--- NOTE | 2018-04-13 18:26 | US ---
HISTORY: Leg pain and swelling. Evaluate for DVT PHYSICIAN(S): Sanju Willis MD. TECHNIQUE: Duplex sonography and color-flow Doppler with graded compression were used to evaluate the deep venous systems of both lower extremities. The patient is status post left lower extremity amputation FINDINGS: The visualized deep venous systems of both lower extremities are sonographically normal and compressible. Normal wave forms and augmentation are seen. There is no sonographic evidence for deep venous thrombosis in the visualized segments of both lower extremities. IMPRESSION: No sonographic evidence for deep venous thrombosis in the visualized segments of both lower extremities.
[2018-04-14] MEDS: Insulin Reg-MEDIUM-Coverage SC SCH ×4 (07:49→22:00)
[2018-04-14] MEDS: Pantoprazole 40 mg EC Tab PO SCH (07:50)
--- NOTE | 2018-04-14 09:41 | PQF ---
PROVIDER RESPONSE TEXT: Ckg stage 3 REVIEWER QUERY TEXT: Kidney Disease, Chronic CKD Stage Chronic Kidney Disease (CKD) is documented in the Medical Record. Please specify the disease stage ( includes probable or suspected) Such as: -- Chronic kidney disease Stage 1 -- Chronic kidney disease Stage 2 -- Chronic kidney disease Stage 3 -- Chronic kidney disease Stage 4 -- Chronic kidney disease Stage 5 -- Chronic kidney disease Stage 5, requiring dialysis -- End Stage Renal Disease -- Other, please specify Stages are defined by the [employer] as follows: CKD Stage I GFR >= 90 ml / min per 1.73 m2 and persistent albuminuria CKD Stage 2 GFR between 60 and 89 with persistent albuminuria CKD Stage 3 GFR between 30 and 59 CKD Stage 4 GFR between 15 and 29 CKD Stage 5 GFR between <15 or End Stage Renal Disease The patient's Clinical Indicators include: Patient has hx CKD. Please specify stage of CKD. Query created by: Hilary Magana on 04/14/2018 7:48 AM Electronically signed by: Kavon Patiño DO 04/14/2018 9:38 AM
--- NOTE | 2018-04-14 10:01 | PN ---
DATE: 04/14/2018 SUBJECTIVE: He is resting comfortably in bed. He actually told me he slept well last night and he is hungry this morning. He is still refusing medications. PHYSICAL EXAMINATION: VITAL SIGNS: He has a 97.7 temperature, T-max was 100.3 last night, 78 pulse, 168/81 blood pressure, 18 respiratory rate, 95% O2 sat on room. HEENT: Head is atraumatic, normocephalic. HEART: Regular rate. LUNGS: Decreased breath sounds but clear. ABDOMEN: Soft, nontender. EXTREMITIES: He has a left BKA. He is weak. He is in need to go to [facility] [place] for physical therapy, hoping [place]. MEDICATIONS: He is on Abilify, Catapres, Coreg, Ecotrin, Feosol, insulin, Lexapro, Lipitor, nystatin, Plavix, Protonix and Ultram. LABORATORY DATA: He has a 140 sodium, potassium 4.7, 24 BUN, creatinine 2.3, GFR is 28 that was yesterday, sugar is 112, calcium is 8.2, his total bili is 0.5, AST is 22, ALT is 22, alk phos 106. White count 6.9, hemoglobin 12.5, hematocrit 30.4, platelets 176,000. I am hoping he go to [place] today possibly if it is okay with social media executive and case management. He could use [facility] [place]. Kavon Patiño DO
[2018-04-14] MEDS: Nystatin 100,000 Units/gm Topical Pow(15 gm) TOP SCH ×3 (12:10→18:59)
[2018-04-14 22:38] VITALS: TEMP 97.9
[2018-04-15 06:45] LABS: HEMOGLOBIN 11.5 g/dL (14.0-18.0); MEAN CELL VOLUME 88.2 fl (80.0-105.0); MEAN CORPUSCULAR HEMOGLOBIN 28.8 pg (25.0-35.0); MEAN CORPUSCULAR HGB CONC 32.7 g/dl (31.0-37.0); MEAN PLATELET VOLUME 11.7 fl (7.0-11.0); RBC 3.99 10^6/uL (3.5-6.1); RED CELL DISTRIBUTION WIDTH 13.1 % (11.5-14.5); WHITE BLOOD COUNT 12.4 10^3/uL (4.5-11.0)
[2018-04-15 07:32] LABS: CALCIUM 8.1 mg/dL (8.4-10.5)
[2018-04-15 07:55] VITALS: BP 155/72; PULSE 73; RESP 20; O2SAT 94
[2018-04-15] MEDS: Pantoprazole 40 mg EC Tab PO SCH (08:00)
[2018-04-15] MEDS: Insulin Reg-MEDIUM-Coverage SC SCH (08:04)
--- NOTE | 2018-04-15 10:00 | DS ---
HISTORY OF PRESENT ILLNESS: I am hoping he can go to subacute rehab. He told me he wants to go to [place], we will see what social science analyst and case management can do. He is on Abilify, Catapres, Coreg, Ecotrin, Feosol, folic acid, insulin, Lexapro, Lipitor, nystatin powder, Plavix, Protonix and Ultram. He does not always take his medications. PHYSICAL EXAMINATION: VITAL SIGNS: He has 97.9 temperature, 73 pulse, 155/72 blood pressure and 20 respiratory rate. HEENT: Head is atraumatic and normocephalic. HEART: Regular rate. LUNGS: Clear to auscultation. ABDOMEN: Soft and nontender. Positive bowel sounds. EXTREMITIES: Left BKA. Right leg is fairly good. He has failure thrive and weakness, needs physical therapy before he is to go home. LABORATORY DATA: He does have a 12.4 white count not sure where that came from, 11.5 hemoglobin, 35.2 hematocrit with 139,000 platelets. He has no cough. No mucus. No sore throat. No chest pain or shortness of breath. No abdominal pain. No diarrhea. No problems urinating. He has a 135 sodium, potassium 4.5, BUN 39 and creatinine 3.3. His baseline 18 respiratory rate, 83 sugar, 8.1 calcium, total bili is 0.7, AST is 20, ALT is 18 and alk phos 105. Micro was all negative. He is being seen by me. I am hoping he can get some physical therapy at subacute rehab before he goes home. Hopefully, he will take his medications. Hopefully, he will go to [place], I can follow him there, I am doing it for years and he is here with falls, cannot get out of bed, too weak and he needs therapy before he can go home. Kavon Patiño DO
[2018-04-15] MEDS: Nystatin 100,000 Units/gm Topical Pow(15 gm) TOP SCH (10:28)
== END 2018-04-15 12:52 | DRG 641 ==
LOC: ED 07:59 → ERH 11:41 → 5RNO 15:02 → OBSVTOIN 04-13 16:05 → 5RNO 04-13 22:24
PROVIDERS: ADMIT Family Medicine; ATTEND Family Medicine
DX: E86.0 Dehydration (principal); I13.0 Hypertensive heart and chronic kidney disease with heart failure and stage 1 through stage 4 chronic kidney disease, or unspecified chronic kidney disease; R62.7 Adult failure to thrive; E11.22 Type 2 diabetes mellitus with diabetic chronic kidney disease; N18.3 Chronic kidney disease, stage 3 (moderate); I50.9 Heart failure, unspecified; E78.00 Pure hypercholesterolemia, unspecified; F10.10 Alcohol abuse, uncomplicated; F17.210 Nicotine dependence, cigarettes, uncomplicated; Z91.14 Patient's other noncompliance with medication regimen; Z89.512 Acquired absence of left leg below knee